=== PATIENT | female | born 1945 | race Caucasian/White ===

== ENCOUNTER 2016-05-31 07:02 | Inpatient (IN) ==
[2016-05-29 15:07] LABS: Basophils # (Auto) 0 K/mcL (0.0-0.3); Basophils % (Auto) 0.5 % (0.0-2.0); Eosinophils # (Auto) 0.2 K/mcL (0.0-0.7); Granulocytes % (Auto) 69.1 % (38.0-78.0); Lymphocytes # (Auto) 1.7 K/mcL (1.5-4.8); Lymphocytes % (Auto) 19.8 % (15.5-49.0); Mean Cell Volume 88.9 fL (80.0-100.0); Mean Corpuscular HGB Conc 32.8 g/dL (31.0-36.0); Mean Corpuscular Hemoglobin 29.2 pg (26.0-34.0); Monocytes # (Auto) 0.7 K/mcL (0.1-0.9); Monocytes % (Auto) 8.6 % (1.0-9.0); Platelet Count 248 K/mcL (140-440); RBC 4.69 M/mcL (4.00-5.20); Red Cell Distribution Width 14.6 % (11.5-14.5)
[2016-05-29 15:51] LABS: ALT/SGPT 17 U/l (0-40); Albumin 4.3 gm/dL (3.2-5.2); Albumin/Globulin Ratio 1.7 (1.0-2.3); Alkaline Phosphatase 86 U/L (39-117); Blood Urea Nitrogen 14 mg/dl (8-23)
--- NOTE | 2016-05-29 15:51 | XRay Report ---
CLINICAL INFORMATION: Preop COMPARISON: 03/24/2014 FINDINGS:The heart size, mediastinum and pulmonary vessels are unremarkable. The lungs are clear. There are no effusions. The bones and soft tissues are within normal limits. IMPRESSION: Normal chest. Interpreted and Authenticated by: Brendan Bear 05/29/16
[~2016-05-31 07:02] MED LIST: 0.9 % SODIUM CHLORIDE 250 ML IV SCH; cefOXitin 2 GM in DEXTROSE 5% IN WATER 50 ML IV SCH; metroNIDAZOLE 500 MG/100 ML BAG IV SCH
[2016-05-31] MEDS ORDERED: METOCLOPRAMIDE 10 MG/2 ML VIAL IV ONE (08:39)
[2016-05-31] MEDS ORDERED: FAMOTIDINE/PF 20 MG/2 ML VIAL IV ONE (08:40)
[2016-05-31] MEDS ORDERED: CITRIC ACID/SODIUM CITRATE 15 ML ORAL.SOL PO ONE (08:40)
[2016-05-31] MEDS ORDERED: ROCURONIUM 10 MG/ML ML IV ONE (09:45)
[2016-05-31] MEDS ORDERED: ONDANSETRON 4 MG/2 ML VIAL IV ONE (09:45)
[2016-05-31] MEDS ORDERED: PROPOFOL 200 MG/20 ML VIAL IV ONE (09:45)
[2016-05-31] MEDS ORDERED: NEOSTIGMINE 1 MG/ML VIAL IV ONE (09:45)
[2016-05-31] MEDS ORDERED: fentaNYL 100 MCG/2 ML VIAL IV ONE (09:45)
[2016-05-31] MEDS ORDERED: DEXAMETHASONE 10 MG/ML VIAL IV ONE (09:45)
[2016-05-31] MEDS ORDERED: LIDOCAINE HCL/PF 100 MG/5 ML SYRINGE IV ONE (09:45)
[2016-05-31] MEDS ORDERED: GLYCOPYRROLATE 0.2 MG/ML VIAL IV ONE (09:45)
[2016-05-31] MEDS ORDERED: HETASTARCH 6% 500 ML BAG IV ONE (09:45)
[2016-05-31] MEDS ORDERED: MIDAZOLAM 5 MG/5 ML VIAL IV ONE (09:45)
[2016-05-31] MEDS ORDERED: SUCCINYLCHOLINE 20 MG/ML ML IV ONE (09:45)
[2016-05-31] MEDS ORDERED: BACITRACIN 50,000 UNIT VIAL IR ONE (10:52)
[2016-05-31] MEDS ORDERED: cefOXitin 2 GM in DEXTROSE 5% IN WATER 50 ML IV ONE (11:25)
[2016-05-31] MEDS ORDERED: GELATIN SPONGE,ABSORBABLE 1 EACH SPONGE TOPICAL ONE (11:30)
[2016-05-31] MEDS ORDERED: LACTATED RINGERS 250 ML IV PRN (12:09)
[2016-05-31] MEDS ORDERED: IPRATROPIUM/ALBUTEROL 3 ML AMPUL.NEB NEB PRN (12:09)
[2016-05-31] MEDS ORDERED: METHOCARBAMOL 1,000 MG/10 ML VIAL IV PRN (12:09)
[2016-05-31] MEDS ORDERED: BENZOCAINE/MENTHOL 1 LOZENGE PO PRN (12:09)
[2016-05-31] MEDS ORDERED: diphenhydrAMINE 50 MG/ML VIAL IV PRN (12:09)
[2016-05-31] MEDS ORDERED: FLUMAZENIL 0.1 MG/ML ML IV PRN (12:09)
[2016-05-31] MEDS ORDERED: PROMETHAZINE 25 MG/ML VIAL IV PRN (12:09)
[2016-05-31] MEDS ORDERED: ONDANSETRON 4 MG/2 ML VIAL IV PRN (12:09)
[2016-05-31] MEDS ORDERED: NALOXONE HCL 0.4 MG/ML VIAL IV PRN (12:09)
[2016-05-31] MEDS ORDERED: HYDROmorphone 2 MG/ML SYRINGE IV PRN (12:09)
[2016-05-31] MEDS ORDERED: LACTATED RINGERS 1,000 ML IV SCH (12:15)
--- NOTE | 2016-05-31 12:29 | Brief Operative Note ---
Date of procedure: 06/11/16 Pre-op diagnosis: RECTAL PROLAPSE Post-op diagnosis: other (RECTAL PROLAPSE) Procedure: POSTERIOR PROCTOPEXY( RIPSTEIN) Grafts/Implants: Yes (SURGIMESH) Anesthesia: GETA, spinal Findings: VERY LAX REDUNDANT RECTAL MESENTERY AND REDUNDANT SIGMOID COLON Complications: none Surgeon: Solange Santos Estimated blood loss (cc): 350 Specimens Removed/Pathology: none sent Condition: stable Disposition: PACU
[2016-05-31] MEDS: fentaNYL 100 MCG/2 ML VIAL IV PRN ×8 (12:30→13:10)
[2016-05-31] MEDS: 0.9 % SODIUM CHLORIDE 10 ML SYRINGE IV SCH ×2 (14:01→23:02)
[2016-05-31] MEDS: 0.9 % SODIUM CHLORIDE 1,000 ML IV SCH (14:02)
[2016-05-31] MEDS: metroNIDAZOLE 500 MG/100 ML BAG IV SCH ×2 (14:02→17:47)
[2016-05-31] MEDS: HYDROmorphone 2 MG/ML SYRINGE IV PRN ×4 (15:11→22:58)
[2016-05-31] MEDS: ACETAMINOPHEN 1,000 MG/100 ML BOTTLE IV SCH ×2 (16:20→20:49)
[2016-05-31] MEDS: METOCLOPRAMIDE 10 MG/2 ML VIAL IV SCH (17:46)
[2016-05-31] MEDS ORDERED: cefOXitin 2 GM in DEXTROSE 5% IN WATER 50 ML IV SCH (22:00)
[2016-05-31] MEDS: cefOXitin 2 GM in DEXTROSE 5% IN WATER 50 ML IV SCH (23:02)
[2016-06-01] MEDS: metroNIDAZOLE 500 MG/100 ML BAG IV SCH ×5 (00:39→23:56)
[2016-06-01] MEDS: ACETAMINOPHEN 1,000 MG/100 ML BOTTLE IV SCH ×5 (00:39→23:57)
[2016-06-01] MEDS: METOCLOPRAMIDE 10 MG/2 ML VIAL IV SCH ×5 (00:40→23:57)
[2016-06-01] MEDS: 0.9 % SODIUM CHLORIDE 1,000 ML IV SCH ×4 (01:01→19:25)
[2016-06-01] MEDS: HYDROmorphone 2 MG/ML SYRINGE IV PRN ×9 (02:24→23:57)
[2016-06-01] MEDS: PROMETHAZINE 25 MG/ML VIAL IV PRN ×2 (03:37→13:45)
[2016-06-01] MEDS: cefOXitin 2 GM in DEXTROSE 5% IN WATER 50 ML IV SCH ×3 (05:39→21:54)
[2016-06-01 05:42] LABS: Mean Cell Volume 88.6 fL (80.0-100.0); Mean Corpuscular HGB Conc 32.7 g/dL (31.0-36.0); Mean Corpuscular Hemoglobin 28.9 pg (26.0-34.0); Platelet Count 214 K/mcL (140-440); RBC 4.68 M/mcL (4.00-5.20); Red Cell Distribution Width 14.7 % (11.5-14.5)
[2016-06-01] MEDS: 0.9 % SODIUM CHLORIDE 10 ML SYRINGE IV SCH ×3 (05:45→23:58)
[2016-06-01 06:00] LABS: Blood Urea Nitrogen 7 mg/dl (8-23)
[2016-06-01 06:30] LABS: Band Neutrophils % 7 % (0-10); Lymphocytes % 7 % (15-49); Monocytes % (Manual) 8 % (1-9); Platelet Estimate NORMAL (NORMAL); RBC Morphology NORMAL (NORMAL); Segmented Neutrophils % 78 % (38-78)
[2016-06-01] MEDS: PANTOPRAZOLE 40 MG VIAL IV SCH (07:11)
--- NOTE | 2016-06-01 16:19 | General Surgery Progress Note ---
Subjective Patient reports: still having pain, no flatus, no bowel movement, nausea, vomiting, afebrile Narrative: Note initiated : 06/01/16 at 4:13 pm Service Date, if different from initiated Date: [] Patient: Amparo Briceno 70 y/o F admitted on 05/31/16 for Ripstein Posterior Proctopexy. Chief Complaint. patient is stable except for pain. she has some nausea. she has not had vomiting. she has better control with the dilaudid. Objective Temp Pulse Resp BP Pulse Ox 99.1 F 84 24 188/92 96 06/01/16 11:59 06/01/16 14:24 06/01/16 14:24 06/01/16 14:24 06/01/16 14:24 - Additional Data Intake & Output - Last 24 hours: Intake & Output 05/30/16 05/31/16 06/01/16 06/02/16 05:59 05:59 05:59 05:59 Intake Total 4200 / 4200 250 / 250 Output Total 3120 / 3120 1480 / 1480 Balance 1080 / 1080 -1230 / -1230 Weight 125 lb 128 lb 8 oz 128 lb 8 oz - General physical appearance moderate distress, moderate pain - Eyes PERRL, normal ocular movement - ENT no congestion - Neck no venous distension - Respiratory clear to auscultation - Cardiovascular Cardiovascular exam: Present: normal rate and rhythm, RRR, +S2. Absent: JVD - Abdomen tender, bowel sounds, distended (hypoactive bowel sounds; no distention;) - Integumentary no rash - Neurologic normal coordination, normal sensation - Musculoskeletal normal gait, normal posture - Psychiatric oriented to time, oriented to person, oriented to place, speech is normal, memory intact - Labs 06/01/16 04:30 06/01/16 04:30 Diabetes panel 06/01/16 Range/Units 04:30 Sodium 133 (133-145) mmol/L Potassium 3.7 (3.3-5.1) mmol/L Chloride 98 (96-108) mmol/L Carbon Dioxide 24 (22-30) mmol/L BUN 7 L (8-23) mg/dl Creatinine 0.5 L (0.6-1.1) mg/dl Glucose 145 H (70-105) mg/dL Calcium 7.7 L (8.6-10.4) mg/dl Calcium panel 06/01/16 Range/Units 04:30 Calcium 7.7 L (8.6-10.4) mg/dl Pituitary panel 06/01/16 Range/Units 04:30 Sodium 133 (133-145) mmol/L Potassium 3.7 (3.3-5.1) mmol/L Chloride 98 (96-108) mmol/L Carbon Dioxide 24 (22-30) mmol/L BUN 7 L (8-23) mg/dl Creatinine 0.5 L (0.6-1.1) mg/dl Glucose 145 H (70-105) mg/dL Calcium 7.7 L (8.6-10.4) mg/dl Adrenal panel 06/01/16 Range/Units 04:30 Sodium 133 (133-145) mmol/L Potassium 3.7 (3.3-5.1) mmol/L Chloride 98 (96-108) mmol/L Carbon Dioxide 24 (22-30) mmol/L BUN 7 L (8-23) mg/dl Creatinine 0.5 L (0.6-1.1) mg/dl Glucose 145 H (70-105) mg/dL Calcium 7.7 L (8.6-10.4) mg/dl Medical - PN: A/P - Time Spent With Patient Total time spent is greater than 50% in coordination of care (as documented) at patient's floor/unit and/or counseling patient: (1) 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
[2016-06-02] MEDS: HYDROmorphone 2 MG/ML SYRINGE IV PRN ×10 (02:52→23:49)
[2016-06-02] MEDS: 0.9 % SODIUM CHLORIDE 1,000 ML IV SCH ×2 (03:30→16:27)
[2016-06-02] MEDS: cefOXitin 2 GM in DEXTROSE 5% IN WATER 50 ML IV SCH ×3 (05:21→21:53)
[2016-06-02] MEDS: 0.9 % SODIUM CHLORIDE 10 ML SYRINGE IV SCH ×3 (05:21→23:28)
[2016-06-02] MEDS: METOCLOPRAMIDE 10 MG/2 ML VIAL IV SCH ×4 (05:21→23:26)
[2016-06-02] MEDS: metroNIDAZOLE 500 MG/100 ML BAG IV SCH ×4 (05:21→23:26)
[2016-06-02] MEDS: ACETAMINOPHEN 1,000 MG/100 ML BOTTLE IV SCH ×3 (06:48→17:33)
[2016-06-02] MEDS: LEVOTHYROXINE 150 MCG TABLET PO SCH (06:48)
[2016-06-02] MEDS: PANTOPRAZOLE 40 MG VIAL IV SCH (06:48)
[2016-06-02] MEDS: LIOTHYRONINE 5 MCG TABLET PO SCH (09:25)
[2016-06-02] MEDS: SERTRALINE 50 MG TABLET PO SCH (09:26)
[2016-06-02] MEDS: NORETHINDRONE ACET PO SCH (09:44)
[2016-06-02] MEDS: ESTRADIOL PO SCH (09:44)
[2016-06-02 11:13] LABS: Basophils # (Auto) 0 K/mcL (0.0-0.3); Basophils % (Auto) 0.2 % (0.0-2.0); Eosinophils # (Auto) 0 K/mcL (0.0-0.7); Eosinophils % (Auto) 0 % (0.0-7.0); Granulocytes % (Auto) 80.1 % (38.0-78.0); Lymphocytes # (Auto) 1.7 K/mcL (1.5-4.8); Lymphocytes % (Auto) 11.9 % (15.5-49.0); Mean Cell Volume 89.3 fL (80.0-100.0); Mean Corpuscular HGB Conc 32.4 g/dL (31.0-36.0); Mean Corpuscular Hemoglobin 28.9 pg (26.0-34.0); Monocytes # (Auto) 1.1 K/mcL (0.1-0.9); Monocytes % (Auto) 7.8 % (1.0-9.0); Platelet Count 254 K/mcL (140-440); RBC 4.71 M/mcL (4.00-5.20); Red Cell Distribution Width 14.1 % (11.5-14.5)
[2016-06-02 11:22] LABS: Blood Urea Nitrogen 8 mg/dl (8-23)
[2016-06-02] MEDS: PROMETHAZINE 25 MG/ML VIAL IV PRN (11:51)
--- NOTE | 2016-06-02 14:23 | General Surgery Progress Note ---
Subjective Patient reports: still having pain, no flatus, no bowel movement, afebrile Narrative: Note initiated : 06/02/16 at 2:21 pm Service Date, if different from initiated Date: [] Patient: Amparo Briceno 70 y/o F admitted on 05/31/16 for Ripstein Posterior Proctopexy. Chief Complaint: [patient is doing better. She had some nausea last evening but no vomiting. She has not had flatus as yet. Her pain is better but not completely controlle. She still has bloody drainagefrom her pelvis. She denies chest pain or shortness of breath..] Objective Temp Pulse Resp BP Pulse Ox 98.6 F 99 H 22 158/82 97 06/02/16 12:00 06/02/16 12:00 06/02/16 12:00 06/02/16 12:00 06/02/16 12:00 - Additional Data Intake & Output - Last 24 hours: Intake & Output 05/31/16 06/01/16 06/02/16 06/03/16 05:59 05:59 05:59 05:59 Intake Total 4200 / 4200 3050 / 3050 200 / 200 Output Total 3120 / 3120 4040 / 4040 30 / 30 Balance 1080 / 1080 -990 / -990 170 / 170 Weight 128 lb 8 oz 121 lb 8 oz - General physical appearance moderate distress, moderate pain - Eyes PERRL - ENT no congestion - Neck no venous distension - Respiratory clear to auscultation - Cardiovascular Cardiovascular exam: Present: normal rate and rhythm, RRR, +S1, +S2, tachycardia - Abdomen tender, bowel sounds, distended (she has good active bowel sounds but no distention. She has diffuse tenderness of the operative site. JAIME drain is still quite sanguinous.) - Integumentary no rash, no growths, no abnormal pigmentation - Neurologic normal coordination, normal sensation - Psychiatric oriented to time - Labs 06/02/16 10:25 06/02/16 10:25 Diabetes panel 06/02/16 Range/Units 10:25 Sodium 131 L (133-145) mmol/L Potassium 3.3 (3.3-5.1) mmol/L Chloride 94 L (96-108) mmol/L Carbon Dioxide 23 (22-30) mmol/L BUN 8 (8-23) mg/dl Creatinine 0.5 L (0.6-1.1) mg/dl Glucose 122 H (70-105) mg/dL Calcium 8.0 L (8.6-10.4) mg/dl Calcium panel 06/02/16 Range/Units 10:25 Calcium 8.0 L (8.6-10.4) mg/dl Pituitary panel 06/02/16 Range/Units 10:25 Sodium 131 L (133-145) mmol/L Potassium 3.3 (3.3-5.1) mmol/L Chloride 94 L (96-108) mmol/L Carbon Dioxide 23 (22-30) mmol/L BUN 8 (8-23) mg/dl Creatinine 0.5 L (0.6-1.1) mg/dl Glucose 122 H (70-105) mg/dL Calcium 8.0 L (8.6-10.4) mg/dl Adrenal panel 06/02/16 Range/Units 10:25 Sodium 131 L (133-145) mmol/L Potassium 3.3 (3.3-5.1) mmol/L Chloride 94 L (96-108) mmol/L Carbon Dioxide 23 (22-30) mmol/L BUN 8 (8-23) mg/dl Creatinine 0.5 L (0.6-1.1) mg/dl Glucose 122 H (70-105) mg/dL Calcium 8.0 L (8.6-10.4) mg/dl Medical - PN: A/P - Time Spent With Patient Total time spent is greater than 50% in coordination of care (as documented) at patient's floor/unit and/or counseling patient: (1) 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
[2016-06-02] MEDS: METHYLNALTREXONE BROMIDE 12 MG/0.6 ML SYRINGE SQ SCH (15:15)
[2016-06-02] MEDS: POTASSIUM CHLORIDE 20 MEQ TABLET PO SCH (17:48)
[2016-06-02] MEDS: morphine 30 MG TAB.SR.12H PO SCH (20:32)
[2016-06-03] MEDS: ACETAMINOPHEN 1,000 MG/100 ML BOTTLE IV SCH ×5 (00:58→23:20)
[2016-06-03] MEDS: 0.9 % SODIUM CHLORIDE 1,000 ML IV SCH ×3 (02:38→17:35)
[2016-06-03] MEDS: HYDROmorphone 2 MG/ML SYRINGE IV PRN ×9 (03:57→23:22)
[2016-06-03] MEDS: metroNIDAZOLE 500 MG/100 ML BAG IV SCH ×4 (05:15→23:20)
[2016-06-03] MEDS: METOCLOPRAMIDE 10 MG/2 ML VIAL IV SCH ×4 (05:16→23:22)
[2016-06-03] MEDS: 0.9 % SODIUM CHLORIDE 10 ML SYRINGE IV SCH ×3 (05:16→23:33)
[2016-06-03] MEDS: cefOXitin 2 GM in DEXTROSE 5% IN WATER 50 ML IV SCH ×3 (05:16→21:35)
[2016-06-03] MEDS: PANTOPRAZOLE 40 MG VIAL IV SCH (08:32)
[2016-06-03] MEDS: LIOTHYRONINE 5 MCG TABLET PO SCH (08:32)
[2016-06-03] MEDS: morphine 30 MG TAB.SR.12H PO SCH ×2 (08:32→21:35)
[2016-06-03] MEDS: LEVOTHYROXINE 150 MCG TABLET PO SCH (08:33)
[2016-06-03] MEDS: POTASSIUM CHLORIDE 20 MEQ TABLET PO SCH ×2 (08:33→18:06)
[2016-06-03] MEDS: SERTRALINE 50 MG TABLET PO SCH (08:33)
[2016-06-03] MEDS: NORETHINDRONE ACET PO SCH (10:47)
[2016-06-03] MEDS: ESTRADIOL PO SCH (10:47)
[2016-06-03 11:16] LABS: Basophils # (Auto) 0 K/mcL (0.0-0.3); Basophils % (Auto) 0.4 % (0.0-2.0); Eosinophils # (Auto) 0.1 K/mcL (0.0-0.7); Granulocytes % (Auto) 79.4 % (38.0-78.0); Lymphocytes # (Auto) 1.2 K/mcL (1.5-4.8); Lymphocytes % (Auto) 12.1 % (15.5-49.0); Mean Cell Volume 89.5 fL (80.0-100.0); Mean Corpuscular HGB Conc 32.8 g/dL (31.0-36.0); Mean Corpuscular Hemoglobin 29.4 pg (26.0-34.0); Monocytes # (Auto) 0.7 K/mcL (0.1-0.9); Monocytes % (Auto) 7.1 % (1.0-9.0); Platelet Count 240 K/mcL (140-440); RBC 3.78 M/mcL (4.00-5.20); Red Cell Distribution Width 14.1 % (11.5-14.5)
--- NOTE | 2016-06-03 17:26 | General Surgery Progress Note ---
Subjective Patient reports: feels better, still having pain, tolerating liquids well, flatus, no bowel movement, afebrile Narrative: Note initiated : 06/03/16 at 5:23 pm Service Date, if different from initiated Date: [] Patient: Amparo Briceno 70 y/o F admitted on 05/31/16 for Ripstein Posterior Proctopexy. Chief Complaint: [patient feels better but she is still having significant pain. After institution of Relistor she is passing more flatus and is having less abdominal cramps. She denies nausea. Her main difficulty seems to be related to her low dose of oral morphine. This will be increased to 180 mg twice daily and tomorrow I will spread her interval for Dilaudid to every 4 hours when necessary] Objective Temp Pulse Resp BP Pulse Ox 97.8 F 95 H 16 130/67 94 06/03/16 12:00 06/03/16 12:00 06/03/16 12:00 06/03/16 12:00 06/03/16 12:00 - Additional Data Intake & Output - Last 24 hours: Intake & Output 06/01/16 06/02/16 06/03/16 06/04/16 05:59 05:59 05:59 05:59 Intake Total 4200 / 4200 3050 / 3050 3175 / 3175 800 / 800 Output Total 3120 / 3120 4040 / 4040 3395 / 3395 680 / 680 Balance 1080 / 1080 -990 / -990 -220 / -220 120 / 120 Weight 128 lb 8 oz 121 lb 8 oz 122 lb - General physical appearance moderate distress, moderate pain - Eyes PERRL - ENT no congestion - Neck no venous distension - Respiratory clear to auscultation - Cardiovascular Cardiovascular exam: Present: normal rate and rhythm, RRR, +S1, +S2. Absent: JVD - Abdomen tender, bowel sounds, distended (abdomen is less distended; she has hyperactive bowel sounds JAIME drainage continued to decrease and is much thinner.) - Integumentary no rash - Neurologic normal coordination, normal sensation - Musculoskeletal normal gait, normal posture - Psychiatric oriented to time, oriented to person, oriented to place, speech is normal, memory intact - Labs 06/03/16 10:35 06/02/16 10:25 Medical - PN: A/P - Time Spent With Patient Total time spent is greater than 50% in coordination of care (as documented) at patient's floor/unit and/or counseling patient: (1) 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
[2016-06-03] MEDS: METHYLNALTREXONE BROMIDE 12 MG/0.6 ML SYRINGE SQ SCH (18:05)
[2016-06-04] MEDS: 0.9 % SODIUM CHLORIDE 1,000 ML IV SCH ×2 (04:55→10:15)
[2016-06-04] MEDS: HYDROmorphone 2 MG/ML SYRINGE IV PRN ×2 (04:56→09:41)
[2016-06-04] MEDS: cefOXitin 2 GM in DEXTROSE 5% IN WATER 50 ML IV SCH ×2 (06:05→15:34)
[2016-06-04] MEDS: METOCLOPRAMIDE 10 MG/2 ML VIAL IV SCH ×2 (06:07→12:03)
[2016-06-04] MEDS: metroNIDAZOLE 500 MG/100 ML BAG IV SCH ×2 (06:08→12:04)
[2016-06-04] MEDS: ACETAMINOPHEN 1,000 MG/100 ML BOTTLE IV SCH ×2 (06:10→12:03)
[2016-06-04] MEDS: 0.9 % SODIUM CHLORIDE 10 ML SYRINGE IV SCH ×2 (06:11→15:34)
[2016-06-04 06:57] LABS: Basophils # (Auto) 0 K/mcL (0.0-0.3); Basophils % (Auto) 0.3 % (0.0-2.0); Eosinophils # (Auto) 0.2 K/mcL (0.0-0.7); Eosinophils % (Auto) 3.4 % (0.0-7.0); Granulocytes % (Auto) 65.7 % (38.0-78.0); Lymphocytes # (Auto) 1.4 K/mcL (1.5-4.8); Lymphocytes % (Auto) 21.4 % (15.5-49.0); Mean Cell Volume 89.1 fL (80.0-100.0); Mean Corpuscular HGB Conc 32.8 g/dL (31.0-36.0); Mean Corpuscular Hemoglobin 29.2 pg (26.0-34.0); Monocytes # (Auto) 0.6 K/mcL (0.1-0.9); Monocytes % (Auto) 9.2 % (1.0-9.0); Platelet Count 213 K/mcL (140-440); RBC 3.32 M/mcL (4.00-5.20); Red Cell Distribution Width 14.1 % (11.5-14.5)
[2016-06-04] MEDS: LEVOTHYROXINE 150 MCG TABLET PO SCH (07:08)
[2016-06-04] MEDS: LIOTHYRONINE 5 MCG TABLET PO SCH (07:08)
[2016-06-04] MEDS: POTASSIUM CHLORIDE 20 MEQ TABLET PO SCH (07:08)
[2016-06-04] MEDS: PANTOPRAZOLE 40 MG VIAL IV SCH (07:08)
[2016-06-04] MEDS: SERTRALINE 50 MG TABLET PO SCH (08:58)
[2016-06-04] MEDS: morphine 30 MG TAB.SR.12H PO SCH (08:59)
[2016-06-04] MEDS: ESTRADIOL PO SCH (09:45)
[2016-06-04] MEDS: NORETHINDRONE ACET PO SCH (09:45)
--- NOTE | 2016-06-04 13:25 | Discharge Summary ---
Providers - Providers Patient information: Note initiated : 06/04/16 at 1:17 pm Service Date, if different from initiated Date: [] Patient: Amparo Briceno 70 y/o F admitted on 05/31/16 for Ripstein Posterior Proctopexy. Chief Complaint: [] Date of admission: 05/31/16 Discharge date: 06/04/16 Attending physician: Solange Santos Hospitalization Hospital course: 70-YEAR-OLD FEMALE STATUS POST RIB STAIN PROCTOPEXY FOR PROLAPSING RECTOSIGMOID. sHE IS PROGRESSING OVER THE PAST 2DAYS AND FINALLY HAS HAD MULTIPLE BOWEL MOVEMENTS. SHE HAS NOT HAD ANY PROLAPSING TISSUE AND HER PERIANAL AREA LOOKS GOOD WITHOUT ANY EVIDENCE OF PROLAPSE. hER MAJOR PROBLEM HAS BEEN PAIN CONTROLBECAUSE OF HER PROLONGED USE OF LARGE DOSES MORPHINE SULFATE. sHE IS BACK ON HER BASELINEms cONTIN 200 MG TWICE DAILY AND HER PAIN IS WELL CONTROLLED. hER alba DRAIN IS SEROSANGUINEOUS BUT ONLY 80 CC PER DAY. sHE IS STABLE FOR DISCHARGE AND WILL BE FOLLOWED UP IN THE OFFICE IN ONE WEEK. 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 Absent : JVD - Respiratory normal expansion, normal respiratory effort, clear to auscultation - Abdomen Abdomen: Present: soft, tender, bowel sounds, distended - Integumentary Present: no rash, no growths, no abnormal pigmentation - Neurologic Present: normal coordination, normal sensation - Musculoskeletal Present: normal gait, normal posture - Psychiatric Present: oriented to time, oriented to person, oriented to place, speech is normal, memory intact Discharge Plan - Patient/Caregiver Discharge Instructions Activity: increase activity as tolerated Diet: Regular Diet Additional Instructions: [id number] MG 2 TABS 4 TIMES DAILY cONTINUE TO USE HER BASELINE MEDICATIONS fOLLOW-UP IN THE OFFICE IN ONE WEEK mEASURE DRAINAGE IN alba DAILY - Follow up Plan Disposition: Home, Self-Care Prognosis: Good Rehab Potential: Good I certify that the patient requires SNF services.: No Overall status at discharge: patient is progressing back to baseline Pending Studies Resuscitation Status Full Code Diet Full Liquid Diet Start FriJun 03 Breakfast Hydromorphone HCl (Dilaudid) 1.5 mg IV Q2HP PRN PRN Reason: Pain Last Admin: 06/04/16 09:41 Dose: 1.5 mg Admin: 06/04/16 04:56 Dose: 1.5 mg Admin: 06/03/16 23:22 Dose: 1.5 mg Admin: 06/03/16 20:34 Dose: 1.5 mg Admin: 06/03/16 18:06 Dose: 1.5 mg Admin: 06/03/16 16:11 Dose: 1.5 mg Admin: 06/03/16 14:15 Dose: 1.5 mg Admin: 06/03/16 12:04 Dose: 1.5 mg Admin: 06/03/16 09:57 Dose: 1.5 mg Admin: 06/03/16 07:12 Dose: 1.5 mg Admin: 06/03/16 03:57 Dose: 1.5 mg Admin: 06/02/16 23:49 Dose: 1.5 mg Admin: 06/02/16 21:54 Dose: 1.5 mg Admin: 06/02/16 19:31 Dose: 1.5 mg Admin: 06/02/16 17:33 Dose: 1.5 mg Admin: 06/02/16 15:37 Dose: 1.5 mg Admin: 06/02/16 13:30 Dose: 1.5 mg Admin: 06/02/16 11:46 Dose: 1.5 mg Admin: 06/02/16 09:26 Dose: 1.5 mg Admin: 06/02/16 07:01 Dose: 1.5 mg Admin: 06/02/16 02:52 Dose: 1.5 mg Admin: 06/01/16 23:57 Dose: 1.5 mg Admin: 06/01/16 21:54 Dose: 1.5 mg Admin: 06/01/16 18:13 Dose: 1.5 mg Cefoxitin Sodium 2 gm/ (Dextrose) 50 mls @ 100 mls/hr IV Q8 ESTEFANIA Last Infusion: 06/04/16 07:31 Dose: 0 mls/hr Admin: 06/04/16 06:05 Dose: 100 mls/hr Infusion: 06/03/16 22:05 Dose: 100 mls/hr Admin: 06/03/16 21:35 Dose: 100 mls/hr Infusion: 06/03/16 15:00 Dose: 0 mls/hr Admin: 06/03/16 14:14 Dose: 100 mls/hr Infusion: 06/03/16 05:50 Dose: 0 mls/hr Admin: 06/03/16 05:16 Dose: 100 mls/hr Infusion: 06/02/16 22:23 Dose: 100 mls/hr Admin: 06/02/16 21:53 Dose: 100 mls/hr Infusion: 06/02/16 14:27 Dose: 100 mls/hr Admin: 06/02/16 13:57 Dose: 100 mls/hr Infusion: 06/02/16 05:51 Dose: 100 mls/hr Admin: 06/02/16 05:21 Dose: 100 mls/hr Infusion: 06/01/16 22:24 Dose: 100 mls/hr Admin: 06/01/16 21:54 Dose: 100 mls/hr Infusion: 06/01/16 14:10 Dose: 100 mls/hr Admin: 06/01/16 13:40 Dose: 100 mls/hr Infusion: 06/01/16 06:09 Dose: 100 mls/hr Admin: 06/01/16 05:39 Dose: 100 mls/hr Infusion: 05/31/16 23:32 Dose: 100 mls/hr Admin: 05/31/16 23:02 Dose: 100 mls/hr Sodium Chloride (Sodium Chloride 0.9%) 1,000 mls @ 100 mls/hr IV .Q10H ESTEFANIA Last Admin: 06/04/16 10:15 Dose: Not Given Admin: 06/04/16 04:55 Dose: 100 mls/hr Infusion: 06/04/16 03:35 Dose: 100 mls/hr Admin: 06/03/16 17:35 Dose: 100 mls/hr Infusion: 06/03/16 17:35 Dose: 0 mls/hr Admin: 06/03/16 05:15 Dose: 100 mls/hr Admin: 06/03/16 02:38 Dose: Infusion: 06/03/16 02:27 Dose: 100 mls/hr Admin: 06/02/16 16:27 Dose: 100 mls/hr Infusion: 06/02/16 13:30 Dose: 100 mls/hr Admin: 06/02/16 03:30 Dose: 100 mls/hr Infusion: 06/02/16 03:21 Dose: 100 mls/hr Admin: 06/01/16 19:25 Dose: Admin: 06/01/16 17:21 Dose: 100 mls/hr Infusion: 06/01/16 14:04 Dose: 100 mls/hr Admin: 06/01/16 04:04 Dose: 100 mls/hr Admin: 06/01/16 01:01 Dose: Infusion: 06/01/16 00:02 Dose: 100 mls/hr Admin: 05/31/16 14:02 Dose: 100 mls/hr Metronidazole (Flagyl) 500 mg in 100 mls @ 100 mls/hr IV Q6 ESTEFANIA Last Admin: 06/04/16 12:04 Dose: 100 mls/hr Infusion: 06/04/16 07:27 Dose: 0 mls/hr Admin: 06/04/16 06:08 Dose: 100 mls/hr Infusion: 06/04/16 00:20 Dose: 100 mls/hr Admin: 06/03/16 23:20 Dose: 100 mls/hr Infusion: 06/03/16 19:06 Dose: 100 mls/hr Admin: 06/03/16 18:06 Dose: 100 mls/hr Infusion: 06/03/16 13:20 Dose: 0 mls/hr Admin: 06/03/16 12:19 Dose: 100 mls/hr Infusion: 06/03/16 06:15 Dose: 0 mls/hr Admin: 06/03/16 05:15 Dose: 100 mls/hr Infusion: 06/03/16 00:26 Dose: 100 mls/hr Admin: 06/02/16 23:26 Dose: 100 mls/hr Infusion: 06/02/16 18:33 Dose: 100 mls/hr Admin: 06/02/16 17:33 Dose: 100 mls/hr Infusion: 06/02/16 12:45 Dose: 100 mls/hr Admin: 06/02/16 11:45 Dose: 100 mls/hr Infusion: 06/02/16 06:21 Dose: 100 mls/hr Admin: 06/02/16 05:21 Dose: 100 mls/hr Infusion: 06/02/16 00:56 Dose: 100 mls/hr Admin: 06/01/16 23:56 Dose: 100 mls/hr Infusion: 06/01/16 18:44 Dose: 100 mls/hr Admin: 06/01/16 17:44 Dose: 100 mls/hr Infusion: 06/01/16 12:47 Dose: 100 mls/hr Admin: 06/01/16 11:47 Dose: 100 mls/hr Infusion: 06/01/16 06:39 Dose: 100 mls/hr Admin: 06/01/16 05:39 Dose: 100 mls/hr Infusion: 06/01/16 01:39 Dose: 100 mls/hr Admin: 06/01/16 00:39 Dose: 100 mls/hr Infusion: 05/31/16 18:47 Dose: 100 mls/hr Admin: 05/31/16 17:47 Dose: 100 mls/hr Infusion: 05/31/16 15:02 Dose: 100 mls/hr Admin: 05/31/16 14:02 Dose: 100 mls/hr Acetaminophen (Ofirmev) 1,000 mg in 100 mls @ 200 mls/hr IV Q6 ESTEFANIA Last Admin: 06/04/16 12:03 Dose: 200 mls/hr Infusion: 06/04/16 06:40 Dose: 200 mls/hr Admin: 06/04/16 06:10 Dose: 200 mls/hr Infusion: 06/03/16 23:50 Dose: 200 mls/hr Admin: 06/03/16 23:20 Dose: 200 mls/hr Infusion: 06/03/16 18:35 Dose: 200 mls/hr Admin: 06/03/16 18:05 Dose: 200 mls/hr Infusion: 06/03/16 12:50 Dose: 0 mls/hr Admin: 06/03/16 12:19 Dose: 200 mls/hr Infusion: 06/03/16 06:40 Dose: 0 mls/hr Admin: 06/03/16 06:09 Dose: 200 mls/hr Infusion: 06/03/16 01:28 Dose: 200 mls/hr Admin: 06/03/16 00:58 Dose: 200 mls/hr Infusion: 06/02/16 18:03 Dose: 200 mls/hr Admin: 06/02/16 17:33 Dose: 200 mls/hr Infusion: 06/02/16 12:15 Dose: 200 mls/hr Admin: 06/02/16 11:45 Dose: 200 mls/hr Infusion: 06/02/16 07:18 Dose: 200 mls/hr Admin: 06/02/16 06:48 Dose: 200 mls/hr Infusion: 06/02/16 00:27 Dose: 200 mls/hr Admin: 06/01/16 23:57 Dose: 200 mls/hr Infusion: 06/01/16 18:13 Dose: 200 mls/hr Admin: 06/01/16 17:43 Dose: 200 mls/hr Infusion: 06/01/16 12:17 Dose: 200 mls/hr Admin: 06/01/16 11:47 Dose: 200 mls/hr Infusion: 06/01/16 06:09 Dose: 200 mls/hr Admin: 06/01/16 05:39 Dose: 200 mls/hr Infusion: 06/01/16 01:09 Dose: 200 mls/hr Admin: 06/01/16 00:39 Dose: 200 mls/hr Infusion: 05/31/16 21:19 Dose: 200 mls/hr Admin: 05/31/16 20:49 Dose: 200 mls/hr Infusion: 05/31/16 16:50 Dose: 200 mls/hr Admin: 05/31/16 16:20 Dose: 200 mls/hr Levothyroxine Sodium (Synthroid) 150 mcg PO QAMAC COUNTS INCLUDE 234 BEDS AT THE [facility] Last Admin: 06/04/16 07:08 Dose: 150 mcg Admin: 06/03/16 08:33 Dose: 150 mcg Admin: 06/02/16 06:48 Dose: 150 mcg Liothyronine Sodium (Cytomel) 50 mcg PO QAMAC COUNTS INCLUDE 234 BEDS AT THE [facility] Last Admin: 06/04/16 07:08 Dose: 50 mcg Admin: 06/03/16 08:32 Dose: 50 mcg Admin: 06/02/16 09:25 Dose: 50 mcg Methylnaltrexone Gardner (Relistor) 12 mg SQ DAILY@1500 ESTEFANIA Stop: 06/04/16 15:01 Last Admin: 06/03/16 18:05 Dose: 12 mg Admin: 06/02/16 15:15 Dose: 12 mg Metoclopramide HCl (Reglan) 10 mg IV Q6 COUNTS INCLUDE 234 BEDS AT [facility] Last Admin: 06/04/16 12:03 Dose: 10 mg Admin: 06/04/16 06:07 Dose: 10 mg Admin: 06/03/16 23:22 Dose: 10 mg Admin: 06/03/16 18:05 Dose: 10 mg Admin: 06/03/16 12:21 Dose: 10 mg Admin: 06/03/16 05:16 Dose: 10 mg Admin: 06/02/16 23:26 Dose: 10 mg Admin: 06/02/16 17:34 Dose: 10 mg Admin: 06/02/16 11:45 Dose: 10 mg Admin: 06/02/16 05:21 Dose: 10 mg Admin: 06/01/16 23:57 Dose: 10 mg Admin: 06/01/16 17:44 Dose: 10 mg Admin: 06/01/16 11:46 Dose: 10 mg Admin: 06/01/16 05:39 Dose: 10 mg Admin: 06/01/16 00:40 Dose: 10 mg Admin: 05/31/16 17:46 Dose: 10 mg Morphine Sulfate (Morphine) 6 mg IV Q2HP PRN PRN Reason: Pain Last Admin: 06/02/16 16:39 Dose: 6 mg Admin: 06/02/16 03:49 Dose: 6 mg Admin: 06/01/16 19:24 Dose: 6 mg Admin: 06/01/16 13:10 Dose: 6 mg Admin: 06/01/16 10:54 Dose: 6 mg Admin: 06/01/16 08:11 Dose: 6 mg Admin: 06/01/16 03:30 Dose: 6 mg Admin: 06/01/16 00:58 Dose: 6 mg Admin: 05/31/16 20:50 Dose: 6 mg Morphine Sulfate (Ms Contin) 180 mg PO BID COUNTS INCLUDE 234 BEDS AT THE [facility] Last Admin: 06/04/16 08:59 Dose: 180 mg Admin: 06/03/16 21:35 Dose: 180 mg Pantoprazole Sodium (Protonix) 40 mg IV QAMAC COUNTS INCLUDE 234 BEDS AT [facility] Last Admin: 06/04/16 07:08 Dose: 40 mg Admin: 06/03/16 08:32 Dose: 40 mg Admin: 06/02/16 06:48 Dose: 40 mg Admin: 06/01/16 07:11 Dose: 40 mg Estradiol/Norethindrone Acet [ Mimvey Lo 0.5-0.1 Mg ] Tab 1 dose PO QDAY COUNTS INCLUDE 234 BEDS AT [facility] Last Admin: 06/04/16 09:45 Dose: Not Given Admin: 06/03/16 10:47 Dose: Not Given Admin: 06/02/16 09:44 Dose: Not Given Potassium Chloride (Kdur) 20 meq PO BIDCC COUNTS INCLUDE 234 BEDS AT THE [facility] Last Admin: 06/04/16 07:08 Dose: 20 meq Admin: 06/03/16 18:06 Dose: 20 meq Admin: 06/03/16 08:33 Dose: 20 meq Admin: 06/02/16 17:48 Dose: 20 meq Promethazine HCl (Phenergan) 12.5 mg IV Q6HP PRN PRN Reason: Nausea And Vomiting Last Admin: 06/02/16 11:51 Dose: 12.5 mg Admin: 06/01/16 13:45 Dose: 12.5 mg Admin: 06/01/16 03:37 Dose: 12.5 mg Sertraline HCl (Zoloft) 100 mg PO DAILY COUNTS INCLUDE 234 BEDS AT [facility] Last Admin: 06/04/16 08:58 Dose: 100 mg Admin: 06/03/16 08:33 Dose: 100 mg Admin: 06/02/16 09:26 Dose: 100 mg Sodium Chloride (Saline Flush) 10 ml IV Q8 COUNTS INCLUDE 234 BEDS AT THE [facility] Last Admin: 06/04/16 06:11 Dose: 10 ml Admin: 06/03/16 23:33 Dose: 10 ml Admin: 06/03/16 14:16 Dose: Not Given Admin: 06/03/16 05:16 Dose: 10 ml Admin: 06/02/16 23:28 Dose: 10 ml Admin: 06/02/16 14:00 Dose: Not Given Admin: 06/02/16 05:21 Dose: 10 ml Admin: 06/01/16 23:58 Dose: 10 ml Admin: 06/01/16 14:21 Dose: 10 ml Admin: 06/01/16 05:45 Dose: 10 ml Admin: 05/31/16 23:02 Dose: 10 ml Admin: 05/31/16 14:01 Dose: Not Given Shift Summary 06/04/16 03:59 Shift Summary by [place],Joylene pt up w/SBA, having liquid loose stools in attends and in BR, passing flatus, FC drg pale yellow urine, no orders to d/c FC as of yet, MIV infusing well into RFA and other IV to RFA flushed and patent, pt stated takes 200mg mscontin at home and dose was changed last night so pt received 180mg at hs med pass, she only received dilaudid 1.5mg IV twice thus far, pt was receiving dilaudid q2h but she stated dilaudid wasn't controlling her pain at all, she has chronic back and gout pain, she has tolerated a full liquid diet well, repositions self in bed w/minimal difficulty, pt wishes to be more active and possibly d/c home very soon, no orders for ambulation have been entered, ALBA to RLQ with debbie. drg noted, midline incision with drg and bruising noted but tegaderm is intact Initialized on 06/04/16 03:59 - END OF NOTE
--- NOTE | 2016-06-11 08:57 | Operative Note ---
DATE OF OPERATION: 05/31/2016 PREOPERATIVE DIAGNOSIS: Rectal prolapse. POSTOPERATIVE DIAGNOSIS: Rectal prolapse. PROCEDURE: Transabdominal posterior proctopexy. SURGEON: Solange Santos MD. ANESTHESIA: Spinal and general endotracheal anesthesia. FINDINGS: Very lax redundant rectal mesentery and redundant sigmoid colon. DESCRIPTION OF PROCEDURE: Under general anesthesia, the patient's abdomen was prepped and draped in the sterile field. A lower midline incision was made. Upon entering the abdomen there was no abnormality noted except for a very redundant sigmoid colon and a very lax redundant rectal posterior mesentery. There was significant laxity of the distal rectal sigmoid. Bilateral incision was made in the mesentery starting above the sacral promontory and extending deep into the collar of the sacrum down to the tip of the coccyx. This was done bilaterally so as to totally free up the rectum posteriorly. A sleeve of Surgimesh gauze was chosen. It was sutured to the presacral fascia starting at the sacral promontory and extending about 4 cm distally. This was sutured using interrupted 0 Prolene in three rows. This gave perfect fixation of the mesh to the sacrum. The rectal sigmoid was then placed on maximum stretch, and the mesh was folded anteriorly round the mesh leaving the anterior one-fourth of the bowel wall free of mesh. The edge of the Surgimesh was then sutured to the wall of the bowel using multiple interrupted 2-0 Prolene along the superior margin and inferior margin of the mesh, and suturing the mesentery to the residual mesh posteriorly using 2-0 Prolene. While suturing the mesh posteriorly, a small vein off the iliac was punctured. There was bleeding which was controlled with three sutures of interrupted 4-0 Prolene. Irrigation was carried out. The bowel was inspected and appeared to be unremarkable. JAIME drain was placed in the hollow of the sacrum, and Jocelin hemostatic powder was placed to assist with hemostasis. The drain was brought out through a lateral stab incision. Sponge, needle, instrument and blade counts were verified as correct. The fascia and peritoneum were closed with running #1 Prolene. Subcutaneous tissue was closed with 2-0 Monocryl. Skin was closed with ruba. The drain was secured with 3-0 nylon. The patient tolerated the procedure well. Dressing was placed. She was awakened, transferred to a bed and taken to the postanesthetic care unit in satisfactory condition. LCS:neo Babcock: 06/10/2016 17:02:15 Job ID: [id number] Doc ID: [id number] Solange Santos M.D.
== END 2016-06-04 16:20 | disposition home or self-care (01) | DRG 330 ==
LOC: MEDSUR 07:02
PROVIDERS: ADMIT Family Medicine Adult Medicine; ATTEND Family Medicine Adult Medicine

== ENCOUNTER 2016-06-19 10:56 | Inpatient (IN) ==
[2016-06-19] MEDS ORDERED: ONDANSETRON 4 MG/2 ML VIAL IV ONE (11:10)
[2016-06-19] MEDS ORDERED: 0.9 % SODIUM CHLORIDE 1,000 ML IV ONE (11:10)
[2016-06-19] MEDS ORDERED: ACETAMINOPHEN 325 MG TABLET PO ONE (11:15)
[2016-06-19] MEDS ORDERED: LEVOFLOXACIN 750 MG/150 ML BAG IV ONE (11:24)
[2016-06-19] MEDS: HYDROmorphone 2 MG/ML SYRINGE IV PRN ×2 (11:27→12:30)
--- NOTE | 2016-06-19 11:56 | XRay Report ---
CLINICAL INFORMATION: Fever COMPARISON: 05/29/2016 FINDINGS: Heart size, mediastinum and pulmonary vessels are normal. Lungs are clear. No effusions. Right diaphragm is mildly elevated as before. IMPRESSION: No acute disease - stable Interpreted and Authenticated by: Brendan Bear 06/19/16
--- NOTE | 2016-06-19 11:59 | Emergency Department Note ---
Abdominal Pain HPI - General Chief Complaint: Abdominal Pain Stated Complaint: Abdominal pain Time Seen by Provider: 06/19/16 11:00 Source: patient Mode of arrival: ambulatory Limitations: no limitations - History of Present Illness HPI Narrative: This is a 70-year-old female who comes in today complaining of right-sided lower abdominal pain that radiates around into the right flank. She has continued fever. Patient was seen here last evening, as she had developed this fever yesterday around 1930. She did have a CBC, CMP, lactic acid and an abdominal pelvic CT performed. Dr. Esparza had spoken with Dr. Santos last evening regarding the CAT scan results as there were 3 small fluid collections in the pelvis, Dr. Santos felt that these were likely just seromas, as the patient's drains were removed the day before, 06/17/16. CBC was also fairly unremarkable with a white cell count of 10.2. Dr. Santos felt comfortable having the patient sent home on oral Levaquin. She did receive both Zosyn and vancomycin IV while she was in the department. 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 She does complain of dysuria, frequency and hesitancy, denies any hematuria. She states she has had urinary symptoms ever since her Brannon catheter was removed following her surgery. She is two and a half weeks status post posterior proctopexy by Dr. Santos, this was done on May 31, 2016. Urinalysis was not apparently obtained yesterday. She denies any history of kidney stones. No stones were apparent on CT. Patient states that she is having difficulty finding a position of comfort. She states that the majority of her pain feels as though it's in the right side of her low back. Patient is febrile upon arrival, temperature is 102.2F. She has not yet been able to take her pain medication and meloxicam today. She states that she had developed some nausea yesterday, denies any nausea at this present time. She states bowel movements have been normal, last normal bowel movement was yesterday. She denies any blood in the stool, no black or tarry stools. Patient states that Dr. Santos's office was called today and they had advised for the patient to return to the emergency department. Pain is currently 8/10 ache, stabbing. She denies any upper respiratory symptoms. No cough, SOB, chest pain, sore throat. - Related Data Home Medications Medication Instructions Recorded Confirmed magnesium oxide 400 mg capsule 300 mg PO .qd cap 02/21/15 06/19/16 potassium gluconate 595 mg (99 mg) 99 mg PO BID tab 02/21/15 06/19/16 tablet fluticasone 200 mcg-vilanterol 25 1 each INHALATION .qdaily each 09/08/1506/19 mcg/dose powder for inhalation levothyroxine 150 mcg capsule 150 mcg PO QDAY 05/23/16 06/19/16 Estradiol/Norethindrone Acet 1 tab PO DAILY 06/19/16 06/19/16 [Lopreeza 0.5 mg-0.1 mg Tablet] Meloxicam 15 mg PO BID 06/19/16 06/19/16 Polyethylene Glycol 3350 [Miralax] 17 gm PO HS 06/19/16 06/19/16 Sertraline [Zoloft] 100 mg PO HS 06/19/16 06/19/16 Previous Rx's Medication Instructions Recorded fluticasone 50 mcg/actuation nasal 1 spray INTRANASAL BID #16 g 03/08/16 spray,suspension czxcwhltpa-[id number] 1 tab-cap PO Q4H PRN #50 tab 04/09/16 50 mg-325 mg-40 mg tablet omeprazole 20 mg capsule,delayed 20 mg PO BID #180 cap 04/18/16 release montelukast 10 mg tablet 10 mg PO QPM #90 tab 05/17/16 ondansetron 8 mg disintegrating 8 mg PO TID PRN #90 tab 05/21/16 tablet morphine ER 200 mg tablet,extended 200 mg PO BID #60 tab 05/22/16 release liothyronine 25 mcg tablet 50 mcg PO QDAY #180 tab 06/17/16 Allergies Allergy/AdvReac Type Severity Reaction Status Date / Time clindamycin AdvReac Mild Diarrhea Verified 06/19/16 14:49 Review of Systems All systems ED: reviewed and negative except as stated. Abdominal Pain PMH - Past Medical History Medical history: Reports: arthritis, COPD, GERD, thyroid disease Surgical history ED: Reports: hysterectomy, orthopedic, other (CTR), other ( Posterior proctopexy by Dr. Santos on May 31, 2016) Psychiatric history: Reports: no psych history Physical Exam - General Limitations: no limitations General appearance: alert, other (Patient appear ill, pale) - Head Head exam: atraumatic, normocephalic - Eye Eye exam: Present: normal appearance, PERRL, EOMI. Absent: scleral icterus, conjunctival injection - ENT ENT exam: normal exam, normal oropharynx, TM's normal bilaterally - Chest Chest inspection: Present: normal inspection, symmetric chest wall rise - Respiratory Respiratory exam: Present: normal lung sounds bilaterally. Absent: respiratory distress, wheezes, stridor, accessory muscle use - Cardiovascular Cardiovascular exam: Present: regular rate, normal rhythm, normal heart sounds - Abdominal Exam Abdominal exam: Present: soft, tenderness, normal bowel sounds, incision ( midline lower abd w/ bruising. Drain site on the right lower abd is covered with gauze dressing, no drainage apparent. Patient really only very minimally tender to palpation in the RLQ. ). Absent: distention, guarding, rebound, rigidity Abdominal tenderness: Present: RLQ, mild - Back Exam Back exam: Present: CVA tenderness (R). Absent: CVA tenderness (L) - Skin Skin exam: Present: warm, pallor Course Course Narrative: Patient did not advise this provider or the triage nurse initially that she had been seen here yesterday. Additionally, an abdominal and pelvic CT were ordered. This was canceled until labs have been obtained. We will definitely get a urinalysis today. However, patient was started on Zosyn and vancomycin last evening. We will start her on Levaquin today while she is in the department. We will also obtain a chest x-ray. - Reevaluation(s) Reevaluation #1: Patient's temperature 100.1 F Time: 12:53 Reevaluation #2: Patient is sleeping upon re-evaluation. She reports her headache has improved. Time: 13:19 Reevaluation #3: Patient is now complaining of an increase in join pain. She did not take her Meloxicam this morning. Will order Toradol 30mg IV. Time: 13:27 - Consultations Consultation #1: Call out to Dr. Santos. He would like the patient admitted if there are beds available. At this time, the charge nurse is speaking with the nursing pigment making supervisor to see if there is a bed available for patient's admit. Will put in hold orders at this time and Dr. Santos will see the patient on the floor. Time: 12:40 Vital Signs Temperature 102.2 F H 06/19/16 10:56 Pulse Rate 98 H 06/19/16 10:56 Respiratory Rate 20 06/19/16 10:56 Blood Pressure 135/56 06/19/16 10:56 Pulse Oximetry (%) 94 06/19/16 10:56 Temperature 98.1 F 06/19/16 16:26 Pulse Rate 81 06/19/16 16:26 Respiratory Rate 18 06/19/16 16:26 Blood Pressure 138/78 06/19/16 16:26 Pulse Oximetry (%) 98 06/19/16 17:12 Abdominal Pain - Lab Data Lab results reviewed: Yes I reviewed the patient's lab results. Result diagrams: 06/19/16 11:22 06/19/16 11:22 Lab Results 06/19/16 06/19/16 06/19/16 Range/Units 11:22 11:22 11:22 WBC 16.3 H (4.5-11.0) K/mcL RBC 3.56 L (4.00-5.20) M/mcL Hgb 10.4 L (12.0-15.0) g/dL Hct 31.9 L (36.0-48.0) % POC Hct 30.0 L (36.0-48.0) % MCV 89.7 (80.0-100.0) fL MCH 29.3 (26.0-34.0) pg MCHC 32.7 (31.0-36.0) g/dL RDW 15.5 H (11.5-14.5) % Plt Count 362 (140-440) K/mcL MPV 6.9 L (7.4-10.4) fL Gran % 90.8 H (38.0-78.0) % Lymph % (Auto) 3.3 L (15.5-49.0) % [place] % (Auto) 5.9 (1.0-9.0) % Eos % (Auto) 0 (0.0-7.0) % Baso % (Auto) 0 (0.0-2.0) % Gran # 14.8 H (1.8-8.0) K/mcL Lymph # 0.5 L (1.5-4.8) K/mcL [place] # 1.0 H (0.1-0.9) K/mcL Eos # 0 (0.0-0.7) K/mcL Baso # 0 (0.0-0.3) K/mcL VBG Lactic Acid 0.9 (0.5-2.2) mmol/L POC Sodium 135 (133-145) mmol/L Sodium 135 (133-145) mmol/L POC Potassium 3.6 (3.3-5.1) mmol/L Potassium 3.8 (3.3-5.1) mmol/L POC Chloride 97 (96-108) mmol/L Chloride 98 (96-108) mmol/L Carbon Dioxide 24 (22-30) mmol/L POC Total CO2 23 (22-30) mmol/L Anion Gap 13.0 (8-16) POC BUN 7 L (8-23) mg/dl BUN 8 (8-23) mg/dl Creatinine 0.6 (0.6-1.1) mg/dl POC Creatinine 0.5 L (0.6-1.1) mg/dl GFR Calculation 94 Glucose 109 H (70-105) mg/dL POC Glucose 115 H (70-105) mg/dL Calcium 7.9 L (8.6-10.4) mg/dl POC WB Ioniz Calcium 1.07 L (1.16-1.32) mmol/L Total Bilirubin 0.5 (0.0-1.0) mg/dL AST 9 (0-37) U/l ALT 10 (0-40) U/l Alkaline Phosphatase 67 (39-117) U/L Total Protein 5.7 L (5.9-8.4) gm/dL Albumin 3.1 L (3.2-5.2) gm/dL Globulin 2.6 (2.2-3.7) gm/dL Albumin/Globulin Ratio 1.2 (1.0-2.3) Urine Color Urine Appearance Urine pH (5.0-9.0) Ur Specific E[place] (1.000-1.035) Urine Protein (NEG) mg/dL Urine Glucose (UA) (NEG) mg/dL Urine Ketones (NEG) mg/dL Urine Occult Blood (<0.03) mg/dL Urine Nitrate (NEG) Urine Bilirubin (NEG) mg/dL Urine Urobilinogen (NEG) mg/dL Ur Leukocyte Esterase (NEG) /uL Ur Culture Indicated? 06/19/16 Range/Units 12:38 WBC (4.5-11.0) K/mcL RBC (4.00-5.20) M/mcL Hgb (12.0-15.0) g/dL Hct (36.0-48.0) % POC Hct (36.0-48.0) % MCV (80.0-100.0) fL MCH (26.0-34.0) pg MCHC (31.0-36.0) g/dL RDW (11.5-14.5) % Plt Count (140-440) K/mcL MPV (7.4-10.4) fL Gran % (38.0-78.0) % Lymph % (Auto) (15.5-49.0) % [place] % (Auto) (1.0-9.0) % Eos % (Auto) (0.0-7.0) % Baso % (Auto) (0.0-2.0) % Gran # (1.8-8.0) K/mcL Lymph # (1.5-4.8) K/mcL [place] # (0.1-0.9) K/mcL Eos # (0.0-0.7) K/mcL Baso # (0.0-0.3) K/mcL VBG Lactic Acid (0.5-2.2) mmol/L POC Sodium (133-145) mmol/L Sodium (133-145) mmol/L POC Potassium (3.3-5.1) mmol/L Potassium (3.3-5.1) mmol/L POC Chloride (96-108) mmol/L Chloride (96-108) mmol/L Carbon Dioxide (22-30) mmol/L POC Total CO2 (22-30) mmol/L Anion Gap (8-16) POC BUN (8-23) mg/dl BUN (8-23) mg/dl Creatinine (0.6-1.1) mg/dl POC Creatinine (0.6-1.1) mg/dl GFR Calculation Glucose (70-105) mg/dL POC Glucose (70-105) mg/dL Calcium (8.6-10.4) mg/dl POC WB Ioniz Calcium (1.16-1.32) mmol/L Total Bilirubin (0.0-1.0) mg/dL AST (0-37) U/l ALT (0-40) U/l Alkaline Phosphatase (39-117) U/L Total Protein (5.9-8.4) gm/dL Albumin (3.2-5.2) gm/dL Globulin (2.2-3.7) gm/dL Albumin/Globulin Ratio (1.0-2.3) Urine Color Yellow Urine Appearance Clear Urine pH 7.0 (5.0-9.0) Ur Specific [place] 1.016 (1.000-1.035) Urine Protein Neg (NEG) mg/dL Urine Glucose (UA) Negative (NEG) mg/dL Urine Ketones Neg (NEG) mg/dL Urine Occult Blood Neg (<0.03) mg/dL Urine Nitrate Neg (NEG) Urine Bilirubin Neg (NEG) mg/dL Urine Urobilinogen Neg (NEG) mg/dL Ur Leukocyte Esterase Neg (NEG) /uL Ur Culture Indicated? No White cell count is elevated to 16 from 10 yesterday. UA normal. Lactic acid is not elevated. - Radiology Data Radiology results reviewed: Yes I reviewed the patient's radiology results. Lungs are clear, no effusions. No acute disease noted on chest x-ray. Disposition Clinical Impression: Postoperative fever Disposition: Xfer As Inpt ([facility]) Condition: Fair
[2016-06-19 12:30] LABS: Basophils # (Auto) 0 K/mcL (0.0-0.3); Basophils % (Auto) 0 % (0.0-2.0); Eosinophils # (Auto) 0 K/mcL (0.0-0.7); Eosinophils % (Auto) 0 % (0.0-7.0); Granulocytes % (Auto) 90.8 % (38.0-78.0); Lymphocytes # (Auto) 0.5 K/mcL (1.5-4.8); Lymphocytes % (Auto) 3.3 % (15.5-49.0); Mean Cell Volume 89.7 fL (80.0-100.0); Mean Corpuscular HGB Conc 32.7 g/dL (31.0-36.0); Mean Corpuscular Hemoglobin 29.3 pg (26.0-34.0); Monocytes % (Auto) 5.9 % (1.0-9.0); Platelet Count 362 K/mcL (140-440); RBC 3.56 M/mcL (4.00-5.20); Red Cell Distribution Width 15.5 % (11.5-14.5)
[2016-06-19] MEDS ORDERED: KETOROLAC 30 MG/ML VIAL IV ONE ×2 (12:52→13:27)
[2016-06-19 12:53] LABS: ALT/SGPT 10 U/l (0-40); Albumin 3.1 gm/dL (3.2-5.2); Albumin/Globulin Ratio 1.2 (1.0-2.3); Alkaline Phosphatase 67 U/L (39-117); Blood Urea Nitrogen 8 mg/dl (8-23)
[2016-06-19 13:29] LABS: Appearance,Urine CLEAR; Bilirubin,Urine NEG (NEG); Color,Urine YELLOW; Glucose,Urine (UA) NEGATIVE (NEG); Leukocyte Esterase,Urine NEG /uL (NEG); Nitrate,Urine NEG (NEG); Protein,Urine NEG (NEG); Specific Gravity,Urine 1.016 (1.000-1.035); Urine Blood NEG mg/dL (<0.03); Urobilinogen,Urine NEG (NEG)
[2016-06-19] MEDS: 0.9 % SODIUM CHLORIDE 1,000 ML IV SCH ×2 (14:04→15:48)
[2016-06-19] MEDS ORDERED: BUTALB/ACETAMINOPHEN/CAFFEINE 1 TABLET PO ONE (14:59)
[2016-06-19] MEDS ORDERED: morphine 100 MG TABLET.ER PO ONE (15:30)
[2016-06-19] MEDS ORDERED: morphine 30 MG TAB.SR.12H PO ONE ×2 (15:30→23:49)
[2016-06-19] MEDS ORDERED: PROMETHAZINE 25 MG TABLET PO PRN (17:25)
[2016-06-19] MEDS ORDERED: ACETAMINOPHEN 325 MG TABLET PO PRN (17:25)
--- NOTE | 2016-06-19 17:44 | General Surg History&Physical ---
History of Present Illness Patient information: Note initiated : 06/19/16 at 5:39 pm Service Date, if different from initiated Date: [] Patient: Amparo Briceno 70 y/o F admitted on 06/19/16 for Abd Pain. Chief Complaint: [] Chief complaint: right flank and back pain HPI: Ms. Briceno is a 70 year old female with history of transabdominal posterior proctopexy on 31 May 2016. She had some intraoperative bleeding but otherwise did very well. She was discharged and was seen in follow-up in the office on 17 June. At that time she was doing well. She had not had any fecal incontinence and was having regular bowel movements She denied nausea or vomiting. Her JAIME drain had less than 30 cc of serous drainage for 3 consecutive days. Her wound was well healed. Her drain was discontinued. The patient developed fever on the and was seen in the emergency room with a temperature of 100.1. Her white count was only 10.2. Abdominal exam was benign. She had a CT scan which suggested that she had a pelvic abscess but that the area of the pelvic abscess was area of 2 large sheets of Vicryl mesh that had been placed to create scarring. This was at the distal retrorectal space proximal to the coccyx. I reviewed this with the radiologist and he agrees that this may represent the mesh and not a true abscess. The patient had more severe pain last night nd was finally admitted today. She now has a temperature up to 102 and she has increased white count to 16,000. She denies anterior abdominal pain and has no pain on exam except in the right flank. This is not true CVA pain.she had a urine analysis which is totally negative without white cells nitrites or protein. She is admitted for broad-spectrum antibiotics and I will get a follow-up CT in 3 days to see if there has been in the progression. Her chest x-ray today is unremarkable. Review of Systems - Constitutional chills, fatigue, fever(s), headache(s), malaise, night sweats - Cardiovascular no chest pain with activity, no dyspnea, no dyspnea on exertion, no palpatations , no rapid heart rate - Respiratory no cough, no dyspnea on exertion, no wheezing, no chest congestion, no pain with cough - Gastrointestinal abdominal pain, no nausea, no vomiting - Genitourinary Genitourinary: urinary incontinence, no dysuria, no urinary frequency, no urinary hesitancy - Musculoskeletal arthralgias, back pain, joint swelling, myalgias, neck pain, stiffness - Neurological as per HPI, headache(s), no confusion, no focal weakness, no syncope, no vertigo - Psychiatric anxiety, depression - Endocrine fatigue, no palpitations - Hematologic/Lymphatic no easy bleeding, no easy bruising, no lymphadenopathy - Allergic/Immunologic no tongue swelling, no throat swelling, no uticaria, no wheezing, no lip swelling Past History Past medical history: chronic asthma Gastric esophageal refluxIrritable bowel syndrome Inflammatory polyarthritis. Situational depression Medications and Allergies Home Medications Medication Instructions Recorded Confirmed Type magnesium oxide 400 mg capsule 300 mg PO .qd cap 02/21/15 07/05/16 History potassium gluconate 595 mg (99 mg) 99 mg PO BID tab 02/21/15 07/05/16 History tablet fluticasone 200 mcg-vilanterol 25 1 each INHALATION .qdaily each 09/08/1507/05 History mcg/dose powder for inhalation fluticasone 50 mcg/actuation nasal 1 spray INTRANASAL BID #16 g 03/08/16 Rx spray,suspension trcpajpyay-agyufipbhrvho-vjwgldbn 1 tab-cap PO Q4H PRN #50 tab 04/09/16 Rx 50 mg-325 mg-40 mg tablet omeprazole 20 mg capsule,delayed 20 mg PO BID #180 cap 04/18/16 07/05/16 Rx release montelukast 10 mg tablet 10 mg PO QPM #90 tab 05/17/16 07/05/16 Rx ondansetron 8 mg disintegrating 8 mg PO TID PRN #90 tab 05/21/16 07/05/16 Rx tablet levothyroxine 150 mcg capsule 150 mcg PO QDAY 05/23/16 07/05/16 History liothyronine 25 mcg tablet 50 mcg PO QDAY #180 tab 06/17/16 07/05/16 Rx Meloxicam 15 mg PO BID 06/19/16 07/05/16 History Polyethylene Glycol 3350 [Miralax] 17 gm PO HS 06/19/16 07/05/16 History Sertraline [Zoloft] 100 mg PO HS 06/19/16 07/05/16 History estradiol-norethindrone acet 0.5 1 tab PO QDAY #90 tab 07/01/16 07/05/16 Rx mg-0.1 mg tablet morphine ER 200 mg tablet,extended 200 mg PO BID #60 tab 07/01/16 07/05/16 Rx release Vancomycin Oral Pushpa 250 mg PO Q6 #60 bottle 07/12/16 Rx cefTRIAXone [Rocephin] 2 gm IV Q24H #21 vial 07/12/16 Rx Allergies Allergy/AdvReac Type Severity Reaction Status Date / Time clindamycin AdvReac Mild Diarrhea Verified 06/19/16 14:49 Exam Temp Pulse Resp BP Pulse Ox 98.1 F 81 18 138/78 98 06/19/16 16:26 06/19/16 16:26 06/19/16 16:26 06/19/16 16:26 06/19/16 17:12 - General physical appearance well developed, well nourished, no distress - Eyes PERRL, normal ocular movement - ENT normal pinna, normal nares, normal mucosa, no hearing loss, no congestion - Head Head exam IM: Present: atraumatic, normocephalic - Neck no masses, no bruits, trachea midline, no lymphadectomy, no venous distension - Cardiovascular Cardiovascular exam IM: Present: normal rate and rhythm - Respiratory normal expansion, normal respiratory effort, clear to percussion, clear to auscultation - Abdomen Abdomen: Present: soft, tender, bowel sounds, distended (abdomen is nondistended ; she has active bowel sounds; there is mild suprapubic tenderness; there is mild right lower flank tenderness but no mass. She has good active bowel sounds ) Hernia: Present: none - Genitourinary Present: normal external genitalia - Rectum Rectum: Present: no hemorrhoids, no tenderness, no masses, no bleeding, other ( decreased anal tone but no anal rectal protrusion) - Integumentary Present: no rash, no growths, no abnormal pigmentation - Neurologic Present: normal coordination, normal sensation - Musculoskeletal Present: normal gait, normal posture, other (multiple joint deformities due to arthritis) - Psychiatric Present: oriented to time, oriented to person, oriented to place, speech is normal, memory intact, other (mild depression) Assessment and Plan (1) Postsurgical fever patient will be monitored closely. She will be pancultured and treated with antibiotics. She will be scheduled for CT of the abdomen and pelvis in 3 days to evaluate the process and the retrorectal space. Status: Acute (2) Arthritis of sacroiliac joint Status: Acute (3) Esophageal reflux Status: Chronic Qualifiers: Esophagitis presence: without esophagitis Qualified Code(s): K21.9 - Gastro -esophageal reflux disease without esophagitis (4) Irritable bowel syndrome Status: Chronic (5) Polyarthropathy, inflammatory Status: Chronic
[2016-06-19] MEDS: metroNIDAZOLE 500 MG/100 ML BAG IV SCH ×2 (18:05→23:53)
[2016-06-19] MEDS: oxyCODONE/APAP 10/325MG TABLET PO PRN ×2 (18:11→23:53)
[2016-06-19] MEDS: VANCOMYCIN 1,000 MG in 0.9 % SODIUM CHLORIDE 250 ML IV SCH (19:02)
[2016-06-19] MEDS: SERTRALINE 50 MG TABLET PO SCH (21:04)
[2016-06-19] MEDS: MONTELUKAST 10 MG TABLET PO SCH (21:04)
[2016-06-19] MEDS: FLUTICASONE PROPIONATE SPRAY.NAS NS SCH (21:04)
[2016-06-19] MEDS: 0.9 % SODIUM CHLORIDE 10 ML SYRINGE IV SCH (21:04)
[2016-06-19] MEDS: POLYETHYLENE GLYCOL 3350 17 GM PACKET PO SCH (21:04)
[2016-06-20] MEDS: 0.9 % SODIUM CHLORIDE 1,000 ML IV SCH ×4 (00:02→20:12)
[2016-06-20] MEDS: BUTALB/ACETAMINOPHEN/CAFFEINE 1 TABLET PO PRN ×2 (04:41→16:52)
[2016-06-20] MEDS: metroNIDAZOLE 500 MG/100 ML BAG IV SCH ×3 (05:23→17:38)
[2016-06-20] MEDS: oxyCODONE/APAP 10/325MG TABLET PO PRN ×3 (05:23→19:40)
[2016-06-20] MEDS: 0.9 % SODIUM CHLORIDE 10 ML SYRINGE IV SCH ×3 (06:40→21:27)
[2016-06-20] MEDS: VANCOMYCIN 1,000 MG in 0.9 % SODIUM CHLORIDE 250 ML IV SCH (06:41)
[2016-06-20 07:19] LABS: Mean Cell Volume 90.1 fL (80.0-100.0); Mean Corpuscular HGB Conc 32.5 g/dL (31.0-36.0); Mean Corpuscular Hemoglobin 29.2 pg (26.0-34.0); Platelet Count 267 K/mcL (140-440); RBC 3.27 M/mcL (4.00-5.20); Red Cell Distribution Width 15.1 % (11.5-14.5)
[2016-06-20 07:44] LABS: Blood Urea Nitrogen 8 mg/dl (8-23)
[2016-06-20] MEDS: LIOTHYRONINE 5 MCG TABLET PO SCH (08:08)
[2016-06-20] MEDS: LEVOTHYROXINE 150 MCG TABLET PO SCH (08:08)
[2016-06-20] MEDS: PANTOPRAZOLE 40 MG VIAL IV SCH (08:08)
[2016-06-20 08:21] LABS: Band Neutrophils % 7 % (0-10); Lymphocytes % 5 % (15-49); Monocytes % (Manual) 5 % (1-9); Platelet Estimate NORMAL (NORMAL); RBC Morphology NORMAL (NORMAL); Segmented Neutrophils % 83 % (38-78)
[2016-06-20] MEDS: ENOXAPARIN 40 MG/0.4 ML SYRINGE SQ SCH (09:59)
[2016-06-20] MEDS: MAGNESIUM OXIDE 400 MG TABLET PO SCH (10:00)
[2016-06-20] MEDS: morphine 30 MG TAB.SR.12H PO SCH ×2 (10:00→21:21)
[2016-06-20] MEDS: VILANTEROL INH SCH ×2 (10:01→13:25)
[2016-06-20] MEDS: NORETHINDRONE ACET PO SCH ×2 (10:01→13:24)
[2016-06-20] MEDS: MELOXICAM 7.5 MG TABLET PO SCH (10:01)
[2016-06-20] MEDS: FLUTICASONE INH SCH ×2 (10:01→13:25)
[2016-06-20] MEDS: ESTRADIOL PO SCH ×2 (10:01→13:24)
[2016-06-20] MEDS: FLUTICASONE PROPIONATE SPRAY.NAS NS SCH ×3 (10:02→21:26)
[2016-06-20] MEDS: PROMETHAZINE 25 MG/ML VIAL IV PRN ×3 (13:11→22:47)
--- NOTE | 2016-06-20 13:15 | General Surgery Progress Note ---
Subjective Patient reports: feels better, still having pain, pain is less, flatus, bowel movement, diarrhea, nausea, vomiting, shortness of breath, afebrile Narrative: Note initiated : 06/20/16 at 1:13 pm Service Date, if different from initiated Date: [] Patient: Amparo Briceno 70 y/o F admitted on 06/19/16 for Abd Pain/Fever. Chief Complaint: patient has right flank and lower abdominal pain. She is also having more diarrhea. She has been afebrile and her white blood counthas returned to normal on present therapy. She had a C. difficile study done whichis positive This gives a better explanation for her rapid rise in white count. She will be treated appropriately. Vancomycin will be given by mouth and she will be continued on IV Flagyl since it is decreased in the bile and will have increased concentration in the stool. If she responds over the next 2 days she should do well on a 14 day course of Flagyl.[] Objective Temp Pulse Resp BP Pulse Ox 98.5 F 82 16 131/74 99 06/20/16 11:38 06/20/16 11:38 06/20/16 11:38 06/20/16 11:38 06/20/16 11:38 - Additional Data Intake & Output - Last 24 hours: Intake & Output 06/18/16 06/19/16 06/20/16 06/21/16 05:59 05:59 05:59 05:59 Intake Total 2300 / 3450 100 / 100 Output Total 550 / 850 200 / 200 Balance 1750 / 2600 -100 / -100 Weight 124 lb - Additional Exam patient appears to be acutely ill HEENT is unremarkable Neck is supple without JVD or adenopathy Chestgood breath sounds bilaterally however she does have splinting on deep inspiration Heart regular with mild tachycardia Abdomen mildly distended but soft with good active bowel sounds; tenderness in the suprapubic and right flank continues. No palpable masses Extremities no peripheral edema Neurologic no focal deficit - Labs 06/20/16 05:10 06/20/16 05:10 Diabetes panel 06/20/16 Range/Units 05:10 Sodium 134 (133-145) mmol/L Potassium 3.8 (3.3-5.1) mmol/L Chloride 99 (96-108) mmol/L Carbon Dioxide 23 (22-30) mmol/L BUN 8 (8-23) mg/dl Creatinine 0.5 L (0.6-1.1) mg/dl Glucose 84 (70-105) mg/dL Calcium 7.8 L (8.6-10.4) mg/dl Calcium panel 06/20/16 Range/Units 05:10 Calcium 7.8 L (8.6-10.4) mg/dl Pituitary panel 06/20/16 Range/Units 05:10 Sodium 134 (133-145) mmol/L Potassium 3.8 (3.3-5.1) mmol/L Chloride 99 (96-108) mmol/L Carbon Dioxide 23 (22-30) mmol/L BUN 8 (8-23) mg/dl Creatinine 0.5 L (0.6-1.1) mg/dl Glucose 84 (70-105) mg/dL Calcium 7.8 L (8.6-10.4) mg/dl Adrenal panel 06/20/16 Range/Units 05:10 Sodium 134 (133-145) mmol/L Potassium 3.8 (3.3-5.1) mmol/L Chloride 99 (96-108) mmol/L Carbon Dioxide 23 (22-30) mmol/L BUN 8 (8-23) mg/dl Creatinine 0.5 L (0.6-1.1) mg/dl Glucose 84 (70-105) mg/dL Calcium 7.8 L (8.6-10.4) mg/dl Medical - PN: A/P - Time Spent With Patient Total time spent is greater than 50% in coordination of care (as documented) at patient's floor/unit and/or counseling patient: (1) Clostridium difficile colitis Status: Acute Current Visit: Yes (2) Postoperative fever Status: Acute Current Visit: Yes
[2016-06-20] MEDS: VANCOMYCIN ORAL SOL 1,000 MG/10 ML BOTTLE PO SCH ×2 (13:26→17:38)
[2016-06-20] MEDS: POLYETHYLENE GLYCOL 3350 17 GM PACKET PO SCH (20:08)
[2016-06-20] MEDS: MONTELUKAST 10 MG TABLET PO SCH (21:21)
[2016-06-20] MEDS: SERTRALINE 50 MG TABLET PO SCH (21:21)
[2016-06-21] MEDS: metroNIDAZOLE 500 MG/100 ML BAG IV SCH ×5 (00:07→23:55)
[2016-06-21] MEDS: VANCOMYCIN ORAL SOL 1,000 MG/10 ML BOTTLE PO SCH ×5 (00:08→23:55)
[2016-06-21] MEDS: oxyCODONE/APAP 10/325MG TABLET PO PRN ×3 (01:36→14:38)
[2016-06-21] MEDS: 0.9 % SODIUM CHLORIDE 10 ML SYRINGE IV SCH ×3 (05:52→21:20)
[2016-06-21 06:42] LABS: Mean Cell Volume 89.6 fL (80.0-100.0); Mean Corpuscular HGB Conc 32.1 g/dL (31.0-36.0); Mean Corpuscular Hemoglobin 28.7 pg (26.0-34.0); Platelet Count 270 K/mcL (140-440); RBC 3.45 M/mcL (4.00-5.20); Red Cell Distribution Width 15.7 % (11.5-14.5)
[2016-06-21 07:45] LABS: Blood Urea Nitrogen 4 mg/dl (8-23)
[2016-06-21] MEDS: PANTOPRAZOLE 40 MG VIAL IV SCH (08:01)
[2016-06-21] MEDS: LEVOTHYROXINE 150 MCG TABLET PO SCH (08:02)
[2016-06-21] MEDS: LIOTHYRONINE 5 MCG TABLET PO SCH (08:02)
[2016-06-21 08:35] LABS: Band Neutrophils % 1 % (0-10); Eosinophils % (Manual) 5 % (0-7); Lymphocytes % 13 % (15-49); Monocytes % (Manual) 7 % (1-9); Platelet Estimate NORMAL (NORMAL); RBC Morphology NORMAL (NORMAL); Segmented Neutrophils % 74 % (38-78)
[2016-06-21] MEDS: PROMETHAZINE 25 MG/ML VIAL IV PRN (08:51)
[2016-06-21] MEDS: 0.9 % SODIUM CHLORIDE 1,000 ML IV SCH ×2 (08:59→21:20)
[2016-06-21] MEDS: MAGNESIUM OXIDE 400 MG TABLET PO SCH (10:04)
[2016-06-21] MEDS: MELOXICAM 7.5 MG TABLET PO SCH (10:04)
[2016-06-21] MEDS: FLUTICASONE PROPIONATE SPRAY.NAS NS SCH ×2 (10:04→21:05)
[2016-06-21] MEDS: morphine 30 MG TAB.SR.12H PO SCH ×2 (10:04→21:05)
[2016-06-21] MEDS: ENOXAPARIN 40 MG/0.4 ML SYRINGE SQ SCH (10:05)
[2016-06-21] MEDS: ESTRADIOL PO SCH (10:13)
[2016-06-21] MEDS: NORETHINDRONE ACET PO SCH (10:13)
[2016-06-21] MEDS: FLUTICASONE INH SCH (10:14)
[2016-06-21] MEDS: VILANTEROL INH SCH (10:14)
--- NOTE | 2016-06-21 11:58 | General Surgery Progress Note ---
Subjective Patient reports: feels better, still having pain, pain is less, flatus, bowel movement, diarrhea, nausea, afebrile Narrative: Note initiated : 06/21/16 at 11:54 am Service Date, if different from initiated Date: [] Patient: Amparo Briceno 70 y/o F admitted on 06/19/16 for Abd Pain/Fever. Chief Complaint: [patient feels slightly better she is still having multiple small pasty liquid stools. Her abdominal discomfort is better. She does have some nausea but no vomiting. She has anorexia. Her incisional discomfort is much better. She does not have any respiratory difficulty.] Objective Temp Pulse Resp BP Pulse Ox 99.1 F 72 16 150/80 94 06/21/16 07:19 06/21/16 07:19 06/21/16 07:19 06/21/16 07:19 06/21/16 09:52 - Additional Data Intake & Output - Last 24 hours: Intake & Output 06/19/16 06/20/16 06/21/16 06/22/16 05:59 05:59 05:59 05:59 Intake Total 2300 / 3450 2600 / 2600 1100 / 1100 Output Total 550 / 850 3050 / 3050 450 / 450 Balance 1750 / 2600 -450 / -450 650 / 650 Weight 124 lb 125 lb 8 oz 125 lb 8 oz - Additional Exam hEENT is unremarkable Neck supple without JVD or bruit Chest clear to auscultation no rales Heart regular rhythm no tachycardia Abdomen soft much less distended, good active bowel sounds Extremities without edema Neurologic exam no focal deficits - Labs 06/21/16 05:04 06/21/16 05:04 Diabetes panel 06/21/16 Range/Units 05:04 Sodium 137 (133-145) mmol/L Potassium 3.4 (3.3-5.1) mmol/L Chloride 101 (96-108) mmol/L Carbon Dioxide 22 (22-30) mmol/L BUN 4 L (8-23) mg/dl Creatinine 0.5 L (0.6-1.1) mg/dl Glucose 85 (70-105) mg/dL Calcium 7.6 L (8.6-10.4) mg/dl Calcium panel 06/21/16 Range/Units 05:04 Calcium 7.6 L (8.6-10.4) mg/dl Pituitary panel 02/10/17 Range/Units 05:04 Sodium 137 (133-145) mmol/L Potassium 3.4 (3.3-5.1) mmol/L Chloride 101 (96-108) mmol/L Carbon Dioxide 22 (22-30) mmol/L BUN 4 L (8-23) mg/dl Creatinine 0.5 L (0.6-1.1) mg/dl Glucose 85 (70-105) mg/dL Calcium 7.6 L (8.6-10.4) mg/dl Adrenal panel 06/21/16 Range/Units 05:04 Sodium 137 (133-145) mmol/L Potassium 3.4 (3.3-5.1) mmol/L Chloride 101 (96-108) mmol/L Carbon Dioxide 22 (22-30) mmol/L BUN 4 L (8-23) mg/dl Creatinine 0.5 L (0.6-1.1) mg/dl Glucose 85 (70-105) mg/dL Calcium 7.6 L (8.6-10.4) mg/dl Medical - PN: A/P - Time Spent With Patient Total time spent is greater than 50% in coordination of care (as documented) at patient's floor/unit and/or counseling patient: (1) Clostridium difficile colitis Status: Acute Assessment and plan: clinically improved but with persistent low-grade temperature. White blood count has returned to normal GI function is improving Plan--ontinue present therapy and advised advance diet as tolerated Current Visit: Yes (2) Postoperative fever Status: Acute Current Visit: Yes
[2016-06-21] MEDS: BUTALB/ACETAMINOPHEN/CAFFEINE 1 TABLET PO PRN (14:37)
[2016-06-21] MEDS ORDERED: ZOLPIDEM 5 MG TABLET PO PRN (21:00)
[2016-06-21] MEDS: MONTELUKAST 10 MG TABLET PO SCH (21:04)
[2016-06-21] MEDS: SERTRALINE 50 MG TABLET PO SCH (21:04)
[2016-06-21] MEDS: POLYETHYLENE GLYCOL 3350 17 GM PACKET PO SCH (21:05)
[2016-06-22] MEDS: 0.9 % SODIUM CHLORIDE 1,000 ML IV SCH ×2 (01:00→11:08)
[2016-06-22] MEDS: PROMETHAZINE 25 MG/ML VIAL IV PRN ×2 (04:45→09:35)
[2016-06-22] MEDS: oxyCODONE/APAP 10/325MG TABLET PO PRN ×2 (04:45→11:08)
[2016-06-22] MEDS: metroNIDAZOLE 500 MG/100 ML BAG IV SCH ×2 (06:04→12:20)
[2016-06-22] MEDS: 0.9 % SODIUM CHLORIDE 10 ML SYRINGE IV SCH (06:04)
[2016-06-22] MEDS: VANCOMYCIN ORAL SOL 1,000 MG/10 ML BOTTLE PO SCH ×2 (06:05→12:20)
[2016-06-22 06:53] LABS: Basophils # (Auto) 0 K/mcL (0.0-0.3); Basophils % (Auto) 0.1 % (0.0-2.0); Eosinophils # (Auto) 0.2 K/mcL (0.0-0.7); Eosinophils % (Auto) 2.6 % (0.0-7.0); Granulocytes % (Auto) 65.9 % (38.0-78.0); Lymphocytes # (Auto) 1.2 K/mcL (1.5-4.8); Lymphocytes % (Auto) 19.9 % (15.5-49.0); Mean Corpuscular HGB Conc 32.3 g/dL (31.0-36.0); Mean Corpuscular Hemoglobin 29.1 pg (26.0-34.0); Monocytes # (Auto) 0.7 K/mcL (0.1-0.9); Monocytes % (Auto) 11.5 % (1.0-9.0); Platelet Count 318 K/mcL (140-440); RBC 3.78 M/mcL (4.00-5.20); Red Cell Distribution Width 16.2 % (11.5-14.5)
[2016-06-22 07:18] LABS: Blood Urea Nitrogen 3 mg/dl (8-23)
[2016-06-22 07:43] LABS: Anisocytosis 1+ (NONE SEEN); Band Neutrophils % 7 % (0-10); Eosinophils % (Manual) 4 % (0-7); Lymphocytes % 20 % (15-49); Monocytes % (Manual) 10 % (1-9); Platelet Estimate NORMAL (NORMAL); RBC Morphology ABNORM (NORMAL); Segmented Neutrophils % 59 % (38-78)
[2016-06-22] MEDS: LEVOTHYROXINE 150 MCG TABLET PO SCH (07:47)
[2016-06-22] MEDS: PANTOPRAZOLE 40 MG VIAL IV SCH (07:47)
[2016-06-22] MEDS: LIOTHYRONINE 5 MCG TABLET PO SCH (07:47)
[2016-06-22] MEDS: MELOXICAM 7.5 MG TABLET PO SCH (09:38)
[2016-06-22] MEDS: VILANTEROL INH SCH (09:38)
[2016-06-22] MEDS: ENOXAPARIN 40 MG/0.4 ML SYRINGE SQ SCH (09:38)
[2016-06-22] MEDS: MAGNESIUM OXIDE 400 MG TABLET PO SCH (09:38)
[2016-06-22] MEDS: NORETHINDRONE ACET PO SCH (09:38)
[2016-06-22] MEDS: FLUTICASONE INH SCH (09:38)
[2016-06-22] MEDS: ESTRADIOL PO SCH (09:38)
[2016-06-22] MEDS: FLUTICASONE PROPIONATE SPRAY.NAS NS SCH (09:38)
[2016-06-22] MEDS: morphine 30 MG TAB.SR.12H PO SCH (09:39)
--- NOTE | 2016-06-22 12:37 | General Surgery Progress Note ---
Subjective Patient reports: feels better, flatus, bowel movement, afebrile Narrative: Note initiated : 06/22/16 at 12:35 pm Service Date, if different from initiated Date: [] Patient: Amparo Briceno 70 y/o F admitted on 06/19/16 for Abd Pain/Fever. Chief Complaint: [patient continues to do well. She has been afebrile. She denies abdominal pa and she is having similar performed bowel movements. She has mild anorexiabut no nausea or vomiting. She is eating some solid food.] Objective Temp Pulse Resp BP Pulse Ox 98.7 F 67 18 138/88 97 06/22/16 08:00 06/22/16 08:00 06/22/16 08:00 06/22/16 08:00 06/22/16 08:00 - Additional Data Intake & Output - Last 24 hours: Intake & Output 06/20/16 06/21/16 06/22/16 06/23/16 05:59 05:59 05:59 05:59 Intake Total 2300 / 3450 2600 / 2600 2900 / 2900 580 / 580 Output Total 550 / 850 3050 / 3050 2775 / 2775 2300 / 2300 Balance 1750 / 2600 -450 / -450 125 / 125 -1720 / -1720 Weight 124 lb 125 lb 8 oz 123 lb 8 oz - Additional Exam HEENT unremarkable there is no evidence of thrush Neck is supple no adenopathy Chest clear to auscultation Heart regular rhythmno ectopy Abdomen soft nondistended no tbrush Extremities no edema Neurologic exam no focal deficits - Labs 06/22/16 04:54 06/22/16 04:54 Diabetes panel 06/22/16 06/22/16 Range/Units 04:54 04:54 Sodium 138 TNP (133-145) mmol/L Potassium 3.3 TNP (3.3-5.1) mmol/L Chloride 98 TNP (96-108) mmol/L Carbon Dioxide 25 TNP (22-30) mmol/L BUN 3 L TNP (8-23) mg/dl Creatinine 0.5 L TNP (0.6-1.1) mg/dl Glucose 90 TNP (70-105) mg/dL Calcium 7.8 L TNP (8.6-10.4) mg/dl Calcium panel 06/22/16 06/22/16 Range/Units 04:54 04:54 Calcium 7.8 L TNP (8.6-10.4) mg/dl Pituitary panel 06/22/16 06/22/16 Range/Units 04:54 04:54 Sodium 138 TNP (133-145) mmol/L Potassium 3.3 TNP (3.3-5.1) mmol/L Chloride 98 TNP (96-108) mmol/L Carbon Dioxide 25 TNP (22-30) mmol/L BUN 3 L TNP (8-23) mg/dl Creatinine 0.5 L TNP (0.6-1.1) mg/dl Glucose 90 TNP (70-105) mg/dL Calcium 7.8 L TNP (8.6-10.4) mg/dl Adrenal panel 06/22/16 06/22/16 Range/Units 04:54 04:54 Sodium 138 TNP (133-145) mmol/L Potassium 3.3 TNP (3.3-5.1) mmol/L Chloride 98 TNP (96-108) mmol/L Carbon Dioxide 25 TNP (22-30) mmol/L BUN 3 L TNP (8-23) mg/dl Creatinine 0.5 L TNP (0.6-1.1) mg/dl Glucose 90 TNP (70-105) mg/dL Calcium 7.8 L TNP (8.6-10.4) mg/dl Medical - PN: A/P - Time Spent With Patient Total time spent is greater than 50% in coordination of care (as documented) at patient's floor/unit and/or counseling patient: (1) Clostridium difficile colitis Status: Acute Assessment and plan: patient is clinically stable and has been afebrile for 3 days. She also has normal white count and normal clinical exam Patient is stable for discharge We'll treat wityl for 14 days C. difficile titer will be done in 4 weeks Current Visit: Yes (2) Postoperative fever Status: Acute Current Visit: Yes
--- NOTE | 2016-06-22 12:43 | Discharge Summary ---
Providers - Providers Patient information: Note initiated : 06/22/16 at 12:41 pm Service Date, if different from initiated Date: [] Patient: Amparo Briceno 70 y/o F admitted on 06/19/16 for Abd Pain/Fever. Chief Complaint: [] Date of admission: 06/19/16 Discharge date: 06/22/16 Attending physician: Solange Santos Hospitalization Hospital course: [id number] female who is status post proctopexy for rectal prolapse. She returns to the emergency room 2 days post removal of her rectal drain. CT of the abdomen suggested a retrorectal ab however this was in the area of 2 sheets of Vicryl mesh that was used in the proctopexy. The patient was sarted on broad -spectrm antibiotics. She started having florid diarrhea which was tested for C. difficile and was positiv. She was already on Flagyl and was continued on this and given by mouth vancomycin. Her white count has decreased from 16,000-- 5000. She has done well now and is having formed stools. Her abdominal exam is benign. She is stable for discharge home on oral medication.. Discharge diagnosis: Clostridium difficile colitis Reason for admission: fever leukocytosis and abdominal pain Procedures: none Pertinent studies/significant findings: no abnormal findings on CT of abdomen and pelvis except for postoperative changes Complications: one Exam Temp Pulse Resp BP Pulse Ox 98.7 F 67 18 138/88 97 06/22/16 08:00 06/22/16 08:00 06/22/16 08:00 06/22/16 08:00 06/22/16 08:00 - General physical appearance well developed, well nourished, no distress - Eyes PERRL, normal ocular movement - ENT normal pinna, normal nares, normal mucosa, no hearing loss, no congestion - Head Head exam IM: Present: atraumatic, normocephalic - Neck no masses, no bruits, trachea midline, no lymphadectomy, no venous distension - Cardiovascular Cardiovascular exam IM: Present: normal rate and rhythm - Respiratory normal expansion, normal respiratory effort, clear to percussion, clear to auscultation - Abdomen Abdomen: Present: soft, non tender, bowel sounds Hernia: Present: none - Rectum Rectum: Present: no hemorrhoids, no tenderness, no masses, no bleeding, other ( poor anal sphincter tone) - Integumentary Present: no rash, no growths, no abnormal pigmentation - Neurologic Present: normal coordination, normal sensation - Musculoskeletal Present: normal gait, normal posture - Psychiatric Present: oriented to time, oriented to person, oriented to place, speech is normal, memory intact Discharge Plan - Patient/Caregiver Discharge Instructions Activity: increase activity as tolerated Diet: Regular Diet Prescriptions: metroNIDAZOLE [Flagyl] 500 mg PO Q6 #60 tablet - Follow up Plan Follow up with: Stephen Munroe MD [Primary Care Provider] - Disposition: Home, Self-Care Prognosis: Good Rehab Potential: Good I certify that the patient requires SNF services.: No Overall status at discharge: patient is progressing back to baseline Pending Studies Resuscitation Status Full Code Diet Full Liquid Diet Start FriJun 21 Dinner Acetaminophen (Tylenol) 650 mg PO Q6HP PRN PRN Reason: PAIN/FEVER > 101 Last Admin: 06/19/16 21:15 Dose: 650 mg Acetaminophen/Butalbital/Caffeine (Fioricet) 1 tab PO Q4HP PRN PRN Reason: Pain Last Admin: 06/21/16 14:37 Dose: 1 tab Admin: 06/20/16 16:52 Dose: 1 tab Admin: 06/20/16 04:41 Dose: 1 tab Enoxaparin Sodium (Lovenox) 40 mg SQ DAILY [facility] Last Admin: 06/22/16 09:38 Dose: 40 mg Admin: 06/21/16 10:05 Dose: 40 mg Admin: 06/20/16 09:59 Dose: 40 mg Fluticasone Propionate (Flonase) 1 spray NS BID [facility] Last Admin: 06/22/16 09:38 Dose: 1 spray Admin: 06/21/16 21:05 Dose: Not Given Admin: 06/21/16 10:04 Dose: 1 spray Admin: 06/20/16 21:26 Dose: 1 spray Admin: 06/20/16 13:24 Dose: 1 spray Admin: 06/20/16 10:02 Dose: Not Given Admin: 06/19/16 21:04 Dose: Not Given Sodium Chloride (Sodium Chloride 0.9%) 1,000 mls @ 100 mls/hr IV .Q10H [facility] Last Admin: 06/22/16 11:08 Dose: Not Given Admin: 06/22/16 01:00 Dose: 100 mls/hr Admin: 06/21/16 21:20 Dose: Not Given Infusion: 06/21/16 18:59 Dose: 0 mls/hr Admin: 06/21/16 08:59 Dose: 100 mls/hr Infusion: 06/21/16 08:44 Dose: 0 mls/hr Admin: 06/20/16 20:12 Dose: 100 mls/hr Infusion: 06/20/16 15:22 Dose: 0 mls/hr Admin: 06/20/16 10:01 Dose: Not Given Admin: 06/20/16 05:22 Dose: 100 mls/hr Infusion: 06/20/16 05:21 Dose: 0 mls/hr Admin: 06/20/16 00:02 Dose: Not Given Admin: 06/19/16 15:48 Dose: 100 mls/hr Admin: 06/19/16 14:04 Dose: Not Given Metronidazole (Flagyl) 500 mg in 100 mls @ 100 mls/hr IV Q6 [facility] Last Admin: 06/22/16 12:20 Dose: 100 mls/hr Infusion: 06/22/16 07:04 Dose: 100 mls/hr Admin: 06/22/16 06:04 Dose: 100 mls/hr Infusion: 06/22/16 00:55 Dose: 0 mls/hr Admin: 06/21/16 23:55 Dose: 100 mls/hr Infusion: 06/21/16 19:00 Dose: 0 mls/hr Admin: 06/21/16 18:00 Dose: 100 mls/hr Infusion: 06/21/16 11:56 Dose: 0 mls/hr Admin: 06/21/16 10:05 Dose: 100 mls/hr Infusion: 06/21/16 06:50 Dose: 100 mls/hr Admin: 06/21/16 05:50 Dose: 100 mls/hr Infusion: 06/21/16 01:07 Dose: 0 mls/hr Admin: 06/21/16 00:07 Dose: 100 mls/hr Infusion: 06/20/16 18:38 Dose: 0 mls/hr Admin: 06/20/16 17:38 Dose: 100 mls/hr Infusion: 06/20/16 13:00 Dose: 0 mls/hr Admin: 06/20/16 11:45 Dose: 100 mls/hr Infusion: 06/20/16 06:25 Dose: 0 mls/hr Admin: 06/20/16 05:23 Dose: 100 mls/hr Infusion: 06/20/16 00:53 Dose: 100 mls/hr Admin: 06/19/16 23:53 Dose: 100 mls/hr Infusion: 06/19/16 19:02 Dose: 0 mls/hr Admin: 06/19/16 18:05 Dose: 100 mls/hr [facility] Admin: 06/22/16 07:47 Dose: 150 mcg Admin: 06/21/16 08:02 Dose: 150 mcg Admin: 06/20/16 08:08 Dose: 150 mcg Liothyronine S[facility] ([facility]omel) [facility] Last Admin: 06/22/16 07:47 Dose: 50 mcg Admin: 06/21/16 08:02 Dose: 50 mcg Admin: 06/20/16 08:08 Dose: 50 mcg Magnesium Oxide (Magnesium Oxide) 400 mg PO DAILY [facility] Last Admin: 06/22/16 09:38 Dose: 400 mg Admin: 06/21/16 10:04 Dose: 400 mg Admin: 06/20/16 10:00 Dose: 400 mg Meloxicam (Mobic) 15 mg PO DAILY [facility] Last Admin: 06/22/16 09:38 Dose: 15 mg Admin: 06/21/16 10:04 Dose: 15 mg Admin: 06/20/16 10:01 Dose: 15 mg Montelukast Sodium (Singular) 10 mg PO QPM [facility] Last Admin: 06/21/16 21:04 Dose: 10 mg Admin: 06/20/16 21:21 Dose: 10 mg Admin: 06/19/16 21:04 Dose: 10 mg Morphine Sulfate (Ms Contin) 180 mg PO BID [facility] Last Admin: 06/22/16 09:39 Dose: 180 mg Admin: 06/21/16 21:05 Dose: 180 mg Admin: 06/21/16 10:04 Dose: 180 mg Admin: 06/20/16 21:21 Dose: 180 mg Admin: 06/20/16 10:00 Dose: 180 mg Oxycodone/Acetaminophen (Percocet 10-325mg) 1 tab PO Q6HP PRN PRN Reason: Pain Last Admin: 06/22/16 11:08 Dose: 1 tab Admin: 06/22/16 04:45 Dose: 1 tab Admin: 06/21/16 14:38 Dose: 1 tab Admin: 06/21/16 07:28 Dose: 1 tab Admin: 06/21/16 01:36 Dose: 1 tab Admin: 06/20/16 19:40 Dose: 1 tab Admin: 06/20/16 13:25 Dose: 1 tab Admin: 06/20/16 05:23 Dose: 1 tab Admin: 06/19/16 23:53 Dose: 1 tab Admin: 06/19/16 18:11 Dose: 1 tab Pantoprazole Sodium (Protonix) 40 mg IV QAMAC [facility] Last Admin: 06/22/16 07:47 Dose: 40 mg Admin: 06/21/16 08:01 Dose: 40 mg Admin: 06/20/16 08:08 Dose: 40 mg Estradiol/Norethindrone Acet [ Lopreeza 0.5 Mg-0.1 Mg] Tablet 1 dose PO DAILY [facility] Last Admin: 06/22/16 09:38 Dose: 1 dose Admin: 06/21/16 10:13 Dose: 1 dose Admin: 06/20/16 13:24 Dose: 1 dose Admin: 06/20/16 10:01 Dose: Not Given Fluticasone/Vilanterol [Breo Ellipta 200-25 Mcg] Inhaler 1 dose INH DAILY [facility] Last Admin: 06/22/16 09:38 Dose: 1 dose Admin: 06/21/16 10:14 Dose: 1 dose Admin: 06/20/16 13:25 Dose: 1 dose Admin: 06/20/16 10:01 Dose: Not Given Polyethylene Glycol (Miralax) 17 gm PO HS [facility] Last Admin: 06/21/16 21:05 Dose: Not Given Admin: 06/20/16 20:08 Dose: Not Given Admin: 06/19/16 21:04 Dose: 17 gm Promethazine HCl (Phenergan) 12.5 mg IV Q4HP PRN PRN Reason: Nausea And Vomiting Last Admin: 06/22/16 09:35 Dose: 12.5 mg Admin: 06/22/16 04:45 Dose: 12.5 mg Admin: 06/21/16 08:51 Dose: 12.5 mg Admin: 06/20/16 22:47 Dose: 12.5 mg Admin: 06/20/16 18:06 Dose: 12.5 mg Admin: 06/20/16 13:11 Dose: 12.5 mg Sertraline HCl (Zoloft) 100 mg PO HS [facility] Last Admin: 06/21/16 21:04 Dose: 100 mg Admin: 06/20/16 21:21 Dose: 100 mg Admin: 06/19/16 21:04 Dose: 100 mg Sodium Chloride (Saline Flush) 10 ml IV Q8 [facility] Last Admin: 06/22/16 06:04 Dose: Not Given Admin: 06/21/16 21:20 Dose: Not Given Admin: 06/21/16 15:18 Dose: Not Given Admin: 06/21/16 05:52 Dose: Not Given Admin: 06/20/16 21:27 Dose: Not Given Admin: 06/20/16 13:21 Dose: Not Given Admin: 06/20/16 06:40 Dose: 10 ml Admin: 06/19/16 21:04 Dose: 10 ml Vancomycin HCl (Vancomycin Oral Pushpa) 250 mg PO Q6 [facility] Last Admin: 06/22/16 12:20 Dose: 2.5 ml Admin: 06/22/16 06:05 Dose: 2.5 ml Admin: 06/21/16 23:55 Dose: 2.5 ml Admin: 06/21/16 18:01 Dose: 2.5 ml Admin: 06/21/16 12:06 Dose: 2.5 ml Admin: 06/21/16 05:50 Dose: 2.5 ml Admin: 06/21/16 00:08 Dose: 2.5 ml Admin: 06/20/16 17:38 Dose: 2.5 ml Admin: 06/20/16 13:26 Dose: 2.5 ml Zolpidem Tartrate (Ambien) 5 mg PO HSP PRN PRN Reason: Insomnia Last Admin: 06/21/16 22:10 Dose: 5 mg Shift Summary 06/21/16 04:00 Shift Summary by Rosalba Ricardo Alert and oriented. Wearing 2L Oxymask. Febrile tonight, fever no higher than 100.0. Medicated for pain with scheduled MS Contin and prn Percocet q6h. Hx of chronic pain and acute right abdomen/back pain. Up with SBA to commode r/t urgency. Wears attends for occ incontinence. Hasn't really had many stools, a lot of smears and quarter size drops but no substantial amounts. Complained of nausea and medicated with Phenergan once. Uses call light for needs. Initialized on 06/21/16 04:00 - END OF NOTE
[2016-06-22] MEDS ORDERED: POTASSIUM CHLORIDE 20 MEQ TABLET PO SCH (17:30)
== END 2016-06-22 14:40 | disposition home or self-care (01) | DRG 373 ==
LOC: ED 10:56 → MEDSUR 14:20
PROVIDERS: ADMIT Family Medicine Adult Medicine; ATTEND Family Medicine Adult Medicine

== ENCOUNTER 2016-07-05 06:05 | Inpatient (IN) ==
[2016-07-05] MEDS ORDERED: IOPAMIDOL 100 ML BOTTLE IV ONE (06:06)
[2016-07-05] MEDS ORDERED: 0.9 % SODIUM CHLORIDE 1,000 ML IV ONE ×2 (06:27→09:34)
[2016-07-05] MEDS ORDERED: PROMETHAZINE 25 MG/ML VIAL IV ONE (06:27)
[2016-07-05] MEDS ORDERED: HYDROmorphone 2 MG/ML SYRINGE IV SCH (06:30)
--- NOTE | 2016-07-05 06:30 | Emergency Department Note ---
General Adult HPI - General Chief complaint: Extremity Injury, Lower Stated complaint: Right hip pain, positive c-diff. Time Seen by Provider: 07/05/16 06:11 Source: patient, EMS Mode of arrival: ambulatory Limitations: no limitations - History of Present Illness HPI Narrative: Patient presents by ambulance from home, 2 concerns. Accelerating diarrhea with nausea, fecal incontinence on the way to the bathroom this morning. Comes to the setting of C. difficile treatment after rectal prolapse surgery. Was treated with vancomycin Hospital, than discharged on Flagyl which she been able tolerate. Sniffing and nausea accompanying waves of cramping and lower abdominal pain. Additionally, sharp right low back pain. States feels generally weak with the pain, states "they told me it was my sacroiliac". No difficulty bearing weight , no significant change, no fall or new trauma. Daughter currently living with her to help out, disabled. Feels that she is not managing well at home. No fevers or chills - Related Data Home Medications Medication Instructions Recorded Confirmed magnesium oxide 400 mg capsule 300 mg PO .qd cap 02/21/15 06/19/16 potassium gluconate 595 mg (99 mg) 99 mg PO BID tab 02/21/15 06/19/16 tablet fluticasone 200 mcg-vilanterol 25 1 each INHALATION .qdaily each 09/08/1506/19 mcg/dose powder for inhalation levothyroxine 150 mcg capsule 150 mcg PO QDAY 05/23/16 06/19/16 Meloxicam 15 mg PO BID 06/19/16 06/19/16 Polyethylene Glycol 3350 [Miralax] 17 gm PO HS 06/19/16 06/19/16 Sertraline [Zoloft] 100 mg PO HS 06/19/16 06/19/16 Previous Rx's Medication Instructions Recorded fluticasone 50 mcg/actuation nasal 1 spray INTRANASAL BID #16 g 03/08/16 spray,suspension [id number] 1 tab-cap PO Q4H PRN #50 tab 04/09/16 50 mg-325 mg-40 mg tablet omeprazole 20 mg capsule,delayed 20 mg PO BID #180 cap 04/18/16 release montelukast 10 mg tablet 10 mg PO QPM #90 tab 05/17/16 ondansetron 8 mg disintegrating 8 mg PO TID PRN #90 tab 05/21/16 tablet liothyronine 25 mcg tablet 50 mcg PO QDAY #180 tab 06/17/16 metroNIDAZOLE [Flagyl] 500 mg PO Q6 #60 tablet 06/22/16 estradiol-norethindrone acet 0.5 1 tab PO QDAY #90 tab 07/01/16 mg-0.1 mg tablet morphine ER 200 mg tablet,extended 200 mg PO BID #60 tab 07/01/16 release Allergies Allergy/AdvReac Type Severity Reaction Status Date / Time clindamycin AdvReac Mild Diarrhea Verified 06/19/16 14:49 Review of Systems All systems ED: reviewed and negative except as stated. Constitutional: Reports: weakness. Denies: fever, chills, weight change Cardiovascular: Denies: chest pain, palpitations Respiratory: Denies: cough, dyspnea Gastrointestinal: Reports: abdominal pain, nausea, diarrhea. Denies: vomiting Past Medical History - Past Medical History Attestation: Yes: The following information was validated with the patient. Medical history: Reports: arthritis, COPD, GERD, thyroid disease Surgical history ED: Reports: hysterectomy, orthopedic, other, other Psychiatric history: Reports: no psych history Family history: Reports: non-contributory - Social History smoking status: Former smoker Physical Exam - General Limitations: no limitations General appearance: alert, anxious - Head Head exam: atraumatic - Eye Eye exam: Present: normal appearance - ENT ENT exam: normal exam, mucous membranes moist - Neck Neck exam: Present: normal inspection. Absent: lymphadenopathy - Chest Chest inspection: Present: normal inspection - Respiratory Respiratory exam: Present: normal lung sounds bilaterally. Absent: respiratory distress - Cardiovascular Cardiovascular exam: Present: regular rate, normal rhythm - Abdominal Exam Abdominal exam: Present: soft, tenderness, hyperactive bowel sounds. Absent: guarding Abdominal tenderness: Present: diffuse, mild - Extremities Exam Extremities exam: Present: normal inspection, normal capillary refill, other ( right hip flexion rotation without pain; ). Absent: pedal edema - Neurological Exam Neurological exam: Present: alert, oriented X3 - Psychiatric Psychiatric exam: Present: anxious - Skin Skin exam: Present: warm, diaphoresis Course - Reevaluation(s) Reevaluation #1: ommunicated to the patient abnormal labs including hyponatremia; CT ordered to document extent of colitis Time: 08:28 Reevaluation #2: additional studies pending, including stool toxin assay, CT abd. IVF running. Patient to be signed out to Dr Taylor. Anticipate admission for hyponatremia. Time: 08:49 Vital Signs Pulse Rate 101 H 07/05/16 06:06 Respiratory Rate 18 07/05/16 06:06 Blood Pressure 149/81 07/05/16 06:06 Pulse Oximetry (%) 95 07/05/16 06:06 Pulse Rate 85 07/05/16 07:46 Respiratory Rate 18 07/05/16 06:06 Blood Pressure 115/62 07/05/16 07:46 Pulse Oximetry (%) 99 07/05/16 07:46 Medical Decision Making - Medical Records Medical records reviewed: Yes I reviewed the patient's medical records. - Lab Data Lab results reviewed: Yes I reviewed the patient's lab results. Result diagrams: 07/05/16 06:50 07/05/16 06:50 Lab Results 07/05/16 07/05/16 07/05/16 Range/Units 06:50 06:50 06:50 WBC 11.5 H (4.5-11.0) K/mcL RBC 4.09 (4.00-5.20) M/mcL Hgb 11.6 L (12.0-15.0) g/dL Hct 35.6 L (36.0-48.0) % POC Hct 37.0 (36.0-48.0) % MCV 86.9 (80.0-100.0) fL MCH 28.3 (26.0-34.0) pg MCHC 32.6 (31.0-36.0) g/dL RDW 16.0 H (11.5-14.5) % Plt Count 514 H (140-440) K/mcL MPV 6.8 L (7.4-10.4) fL Gran % 81.0 H (38.0-78.0) % Lymph % (Auto) 7.6 L (15.5-49.0) % Tripp % (Auto) 10.2 H (1.0-9.0) % Eos % (Auto) 1.0 (0.0-7.0) % Baso % (Auto) 0.2 (0.0-2.0) % Gran # 9.3 H (1.8-8.0) K/mcL Lymph # 0.9 L (1.5-4.8) K/mcL Tripp # 1.2 H (0.1-0.9) K/mcL Eos # 0.1 (0.0-0.7) K/mcL Baso # 0 (0.0-0.3) K/mcL POC Sodium 124 L (133-145) mmol/L Sodium 122 L (133-145) mmol/L POC Potassium 4.2 (3.3-5.1) mmol/L Potassium 4.5 (3.3-5.1) mmol/L POC Chloride 89 L (96-108) mmol/L Chloride 85 L (96-108) mmol/L Carbon Dioxide 23 (22-30) mmol/L POC Total CO2 22 (22-30) mmol/L Anion Gap 14.0 (8-16) POC BUN 11 (8-23) mg/dl BUN 10 (8-23) mg/dl Creatinine 0.5 L (0.6-1.1) mg/dl POC Creatinine 0.4 L (0.6-1.1) mg/dl GFR Calculation 99 Glucose 124 H (70-105) mg/dL POC Glucose 124 H (70-105) mg/dL Calcium 8.8 (8.6-10.4) mg/dl POC WB Ioniz Calcium 1.07 L (1.16-1.32) mmol/L Magnesium 1.7 (1.6-2.5) mg/dL Total Bilirubin 0.5 (0.0-1.0) mg/dL AST 13 (0-37) U/l ALT 10 (0-40) U/l Alkaline Phosphatase 67 (39-117) U/L C-Reactive Protein 5.6 H (0.0-0.8) mg/dl Total Protein 7.2 (5.9-8.4) gm/dL Albumin 3.5 (3.2-5.2) gm/dL Globulin 3.7 (2.2-3.7) gm/dL Albumin/Globulin Ratio 0.9 L (1.0-2.3) Disposition Clinical Impression: Hyponatremia syndrome, Recurrent colitis due to Clostridium difficile, Ankle sprain and strain Disposition: Xfer As Inpt ([facility] Condition: Fair Referrals: Stephen Munroe MD [Primary Care Provider] -
[2016-07-05 07:28] LABS: Basophils # (Auto) 0 K/mcL (0.0-0.3); Basophils % (Auto) 0.2 % (0.0-2.0); Eosinophils # (Auto) 0.1 K/mcL (0.0-0.7); Lymphocytes # (Auto) 0.9 K/mcL (1.5-4.8); Lymphocytes % (Auto) 7.6 % (15.5-49.0); Mean Cell Volume 86.9 fL (80.0-100.0); Mean Corpuscular HGB Conc 32.6 g/dL (31.0-36.0); Mean Corpuscular Hemoglobin 28.3 pg (26.0-34.0); Monocytes # (Auto) 1.2 K/mcL (0.1-0.9); Monocytes % (Auto) 10.2 % (1.0-9.0); Platelet Count 514 K/mcL (140-440); RBC 4.09 M/mcL (4.00-5.20)
[2016-07-05 07:42] LABS: Magnesium 1.7 mg/dL (1.6-2.5)
[2016-07-05 07:54] LABS: ALT/SGPT 10 U/l (0-40); Albumin 3.5 gm/dL (3.2-5.2); Albumin/Globulin Ratio 0.9 (1.0-2.3); Alkaline Phosphatase 67 U/L (39-117); Blood Urea Nitrogen 10 mg/dl (8-23); C-Reactive Protein 5.6 mg/dl (0.0-0.8)
--- NOTE | 2016-07-05 09:28 | Cat Scan Report ---
CLINICAL INFORMATION: Elevated white blood cell count nausea and vomiting. History of rectal prolapse surgery COMPARISON: Postoperative abdomen and pelvic CT over two weeks prior - 06/18/2016 TECHNIQUE: Following enteric contrast, 80 cc of Isovue-300 were injected intravenously, and 60 seconds later, 2.5 mm helical slices were obtained from the mid heart through the subtrochanteric regions. Following reconstruction, 2.5 mm sagittal, coronal and axial reformatted images were processed and reviewed at bone, lung and soft tissue windows. Five minutes later, 5 mm helical slices were obtained from the mid heart through the kidneys and viewed at soft tissue windows. FINDINGS: Lung bases show no abnormality - no effusion. The visualized heart is grossly normal Images should the abdomen show minimal fatty change within the liver which is stable. There are no focal hepatic lesions. Gallbladder is unremarkable. Moderate dilatation of the left hepatic, common hepatic and common bile duct are again noted - common bile duct caliber 11 mm. This demonstrates long-term stability. There is no stone, mass or other cause identified for distal biliary obstruction. The pancreas, both kidneys, adrenal glands, and spleen are normal. The aorta is normal in contour and caliber with scattered calcific and fibrofatty plaque. Celiac, SMA, MARCELLA, renal and iliac arteries are widely patent. Images should the pelvis show urinary bladder is unremarkable. Hysterectomy/oophorectomy changes are noted. Multiple surgical clips present in the perirectal region following rectal prolapse surgery. Two pelvic fluid collections have decreased in size since the study two weeks ago. The first, in the right lateral perirectal region, has decreased from 5.2 cm to 4.1 cm. The second collection, located anteriorly in the right false pelvis has decreased from 8 cm to 6 cm. Both fluid and collections have thin wall capsules. Mild ileus pattern persists: The stomach small and large bowel show mild symmetric dilatation - no evidence of bowel obstruction. There is no adenopathy or free air. Bone windows show degenerative change IMPRESSION: Pelvic fluid collections: 4 cm in the right perirectal region and 6 cm in the right false pelvis. Both have decreased modestly since the prior postoperative CT two weeks prior. This could represent postoperative seromas or resolving abscesses. Mild ileus pattern Moderate dilatation of intrahepatic and common bile ducts which demonstrates long-term stability. If the patient has obstructive LFT pattern or elevated bilirubin, consider referral for ERCP Interpreted and Authenticated by: Brendan Bear 07/05/16
[2016-07-05] MEDS: HYDROmorphone 2 MG/ML SYRINGE IV PRN ×3 (09:42→16:32)
[2016-07-05] MEDS ORDERED: VANCOMYCIN 250 MG CAPSULE PO SCH (13:00)
--- NOTE | 2016-07-05 13:01 | Emergency Department Note ---
General Adult HPI - General Chief complaint: Extremity Injury, Lower Stated complaint: Right hip pain, positive c-diff. Time Seen by Provider: 07/05/16 06:11 Source: patient, EMS Mode of arrival: ambulatory Limitations: no limitations - Related Data Home Medications Medication Instructions Recorded Confirmed magnesium oxide 400 mg capsule 300 mg PO .qd cap 02/21/15 06/19/16 potassium gluconate 595 mg (99 mg) 99 mg PO BID tab 02/21/15 06/19/16 tablet fluticasone 200 mcg-vilanterol 25 1 each INHALATION .qdaily each 09/08/1506/19 mcg/dose powder for inhalation levothyroxine 150 mcg capsule 150 mcg PO QDAY 05/23/16 06/19/16 Meloxicam 15 mg PO BID 06/19/16 06/19/16 Polyethylene Glycol 3350 [Miralax] 17 gm PO HS 06/19/16 06/19/16 Sertraline [Zoloft] 100 mg PO HS 06/19/16 06/19/16 Previous Rx's Medication Instructions Recorded fluticasone 50 mcg/actuation nasal 1 spray INTRANASAL BID #16 g 03/08/16 spray,suspension qfkyzbyhfz-bwpzjaeqkzfzs-nljjzvgw 1 tab-cap PO Q4H PRN #50 tab 04/09/16 50 mg-325 mg-40 mg tablet omeprazole 20 mg capsule,delayed 20 mg PO BID #180 cap 04/18/16 release montelukast 10 mg tablet 10 mg PO QPM #90 tab 05/17/16 ondansetron 8 mg disintegrating 8 mg PO TID PRN #90 tab 05/21/16 tablet liothyronine 25 mcg tablet 50 mcg PO QDAY #180 tab 06/17/16 metroNIDAZOLE [Flagyl] 500 mg PO Q6 #60 tablet 06/22/16 estradiol-norethindrone acet 0.5 1 tab PO QDAY #90 tab 07/01/16 mg-0.1 mg tablet morphine ER 200 mg tablet,extended 200 mg PO BID #60 tab 07/01/16 release Allergies Allergy/AdvReac Type Severity Reaction Status Date / Time clindamycin AdvReac Mild Diarrhea Verified 06/19/16 14:49 Review of Systems Constitutional: Reports: weakness. Denies: fever, chills, weight change Cardiovascular: Denies: chest pain, palpitations Respiratory: Denies: cough, dyspnea Gastrointestinal: Reports: abdominal pain, nausea, diarrhea. Denies: vomiting Past Medical History - Past Medical History Medical history: Reports: arthritis, COPD, GERD, thyroid disease Surgical history ED: Reports: hysterectomy, orthopedic, other, other Psychiatric history: Reports: no psych history Physical Exam - General Limitations: no limitations General appearance: alert, anxious Course Vital Signs Pulse Rate 101 H 07/05/16 06:06 Respiratory Rate 18 07/05/16 06:06 Blood Pressure 149/81 07/05/16 06:06 Pulse Oximetry (%) 95 07/05/16 06:06 Pulse Rate 103 H 07/05/16 12:09 Respiratory Rate 18 07/05/16 06:06 Blood Pressure 144/81 07/05/16 11:39 Pulse Oximetry (%) 97 07/05/16 12:09 Medical Decision Making - MDM Narrative Medical decision making narrative: C. difficile was negative this time. She is very weak and dehydrated low in sodium and chloride. Discussed the case with Dr. Caballero and she will be admitted inpatient. - Lab Data Lab results reviewed: Yes I reviewed the patient's lab results. Result diagrams: 07/05/16 06:50 07/05/16 06:50 Lab Results 07/05/16 07/05/16 07/05/16 Range/Units 06:50 06:50 06:50 WBC 11.5 H (4.5-11.0) K/mcL RBC 4.09 (4.00-5.20) M/mcL Hgb 11.6 L (12.0-15.0) g/dL Hct 35.6 L (36.0-48.0) % POC Hct 37.0 (36.0-48.0) % MCV 86.9 (80.0-100.0) fL MCH 28.3 (26.0-34.0) pg MCHC 32.6 (31.0-36.0) g/dL RDW 16.0 H (11.5-14.5) % Plt Count 514 H (140-440) K/mcL MPV 6.8 L (7.4-10.4) fL Gran % 81.0 H (38.0-78.0) % Lymph % (Auto) 7.6 L (15.5-49.0) % [place] % (Auto) 10.2 H (1.0-9.0) % Eos % (Auto) 1.0 (0.0-7.0) % Baso % (Auto) 0.2 (0.0-2.0) % Gran # 9.3 H (1.8-8.0) K/mcL Lymph # 0.9 L (1.5-4.8) K/mcL [place] # 1.2 H (0.1-0.9) K/mcL Eos # 0.1 (0.0-0.7) K/mcL Baso # 0 (0.0-0.3) K/mcL POC Sodium 124 L (133-145) mmol/L Sodium 122 L (133-145) mmol/L POC Potassium 4.2 (3.3-5.1) mmol/L Potassium 4.5 (3.3-5.1) mmol/L POC Chloride 89 L (96-108) mmol/L Chloride 85 L (96-108) mmol/L Carbon Dioxide 23 (22-30) mmol/L POC Total CO2 22 (22-30) mmol/L Anion Gap 14.0 (8-16) POC BUN 11 (8-23) mg/dl BUN 10 (8-23) mg/dl Creatinine 0.5 L (0.6-1.1) mg/dl POC Creatinine 0.4 L (0.6-1.1) mg/dl GFR Calculation 99 Glucose 124 H (70-105) mg/dL POC Glucose 124 H (70-105) mg/dL Calcium 8.8 (8.6-10.4) mg/dl POC WB Ioniz Calcium 1.07 L (1.16-1.32) mmol/L Magnesium 1.7 (1.6-2.5) mg/dL Total Bilirubin 0.5 (0.0-1.0) mg/dL AST 13 (0-37) U/l ALT 10 (0-40) U/l Alkaline Phosphatase 67 (39-117) U/L C-Reactive Protein 5.6 H (0.0-0.8) mg/dl Total Protein 7.2 (5.9-8.4) gm/dL Albumin 3.5 (3.2-5.2) gm/dL Globulin 3.7 (2.2-3.7) gm/dL Albumin/Globulin Ratio 0.9 L (1.0-2.3) Disposition Clinical Impression: Hyponatremia syndrome, Recurrent colitis due to Clostridium difficile, Ankle sprain and strain Disposition: Xfer As Inpt ([facility]) Condition: Fair Referrals: Stephen Munroe MD [Primary Care Provider] -
[2016-07-05] MEDS ORDERED: MAGNESIUM SULFATE 2 GM/50 ML BAG IV PRN (15:02)
[2016-07-05] MEDS ORDERED: POTASSIUM CHLORIDE 20 MEQ PACKET PO PRN (15:02)
[2016-07-05] MEDS ORDERED: BUTALB/ACETAMINOPHEN/CAFFEINE 1 TABLET PO PRN (15:02)
[2016-07-05] MEDS ORDERED: ONDANSETRON ODT 4 MG TABLET SL PRN (15:09)
[2016-07-05] MEDS: 0.9 % SODIUM CHLORIDE 10 ML SYRINGE IV SCH ×2 (16:31→23:42)
[2016-07-05] MEDS: 0.9 % SODIUM CHLORIDE 1,000 ML IV SCH (16:31)
[2016-07-05 16:43] LABS: Appearance,Urine CLEAR; Bilirubin,Urine NEG (NEG); Color,Urine STRAW; Glucose,Urine (UA) NEGATIVE (NEG); Leukocyte Esterase,Urine NEG /uL (NEG); Nitrate,Urine NEG (NEG); Protein,Urine NEG (NEG); Urine Blood NEG mg/dL (<0.03); Urobilinogen,Urine NEG (NEG)
[2016-07-05] MEDS: VANCOMYCIN ORAL SOL 1,000 MG/10 ML BOTTLE PO SCH ×2 (16:48→21:15)
[2016-07-05 16:52] LABS: Osmolality,Urine 152 mOsm/kg (80-1000)
[2016-07-05] MEDS: PANTOPRAZOLE 40 MG TABLET PO SCH (16:52)
--- NOTE | 2016-07-05 17:00 | History and Physical Report ---
DATE OF ADMISSION: 07/05/2016 REASON FOR ADMISSION: Diarrhea, weakness. HISTORY OF CHIEF COMPLAINT: The patient is a 70-year-old who comes to [facility] Room with persistent diarrhea along with significant incontinence that has progressed over the last few days. The patient has had recently diagnosed C. diff and was on Flagyl and completed a 14-day course. Initial workup in the ER was unremarkable for negative C. diff but positive for sodium of 122. In light of significant hyponatremia with weakness, Hospitalist Service was consulted. Significant to presenting history, the patient recently had a rectopexy for rectal prolapse performed by Dr. Santos and was discharged on 06/19. CT scan in the ER revealed a 4 cm pelvic seroma versus abscess. She also complains of significant right lower back pain and was recently diagnosed as sacroiliitis. She he is scheduled at pain clinic for SI joint injection. Other than that, she denies fever, headache or photophobia. She does endorse to fatigue, lethargic, malaise, but denies dysuria, urinary incontinence, joint pain, swelling or rash. She denies bleeding, chest palpitation and shortness of breath. REVIEW OF SYSTEMS: Ten-point review of system was performed and negative except the ones discussed above. PAST MEDICAL HISTORY: 1. Hypothyroidism. 2. Anxiety disorder. 3. Chronic pain on morphine. CURRENT MEDICATIONS: 1. Nouqfushde-bcpemljduvzhs-beqtihwf one tab q.4 p.r.n. 2. Morphine 200 mg extended release b.i.d. 3. Flagyl 500 mg p.o. daily. 4. Meloxicam 15 mg b.i.d. 5. MiraLax as needed. 6. Sertraline 100 mg. ALLERGIES: KNOWN TO CLINDAMYCIN. SOCIAL HISTORY: The patient lives in the [place]. Her daughter who lives nearby is currently assisting her after recent hospitalization. She is a former smoker. Denies any recent alcoholism or substance abuse. FAMILY HISTORY: Significant for prostate cancer in father. Lung cancer in mother. PHYSICAL EXAMINATION: GENERAL: The patient is alert and oriented. She denies any active distress except for weakness, fatigue, lethargy. BMI 20, height 5 feet 3 inches. VITAL SIGNS: Blood pressure 148/81, respiratory rate 16, temperature 99.7, pulse 86, sats 100% on room air. HEENT: Pupils symmetric. Oral cavity is dry. No ear or nose discharge. Head is normocephalic. NECK: No lymphadenopathy. HEART: S1, S2, regular rate and rhythm. No murmur. CHEST: Clear to auscultation. ABDOMEN: Soft. Sluggish bowel sounds. Minimally tender on deep palpation. EXTREMITIES: No cyanosis, clubbing, joint swelling or erythema. SKIN: No suspicious lesions. PSYCHIATRIC: Alert and cooperative, mild anxiety but no agitation. NEURO: Nonfocal, moving all four extremities. LABS AND IMAGING: White count 11.5, hemoglobin 11.6, platelets 514. Sodium 122, potassium 4.2, creatinine 0.4, and BUN 10. LFTs unremarkable. Serum osmolality 260. Urine osmolality pending. Urine sodium pending. CT abdomen and pelvis: Pelvic fluid collection 4 cm and 6 cm right pelvis, likely a postoperative seroma or resolving abscess. Moderate dilatation intrahepatic common bile duct. ASSESSMENT AND PLAN: A 70-year-old admitted with severe symptomatic hyponatremia along with diarrhea. 1. Symptomatic hyponatremia. Likely secondary to solute loss from recurrent diarrhea. Continue crystalloids and q.4 sodium checks. Await urine and serum osmolality along with sodium levels. 2. Diarrhea. Recheck C. diff. Continue oral vancomycin. 3. Recent rectal prolapse surgery with 4 cm seroma/abscess on CT. Consult Surgery in light of CT findings. 5. Prior medical issues, including: a. History of chronic pain/sacroiliitis. Continue prior home medications, including extended release morphine. b. Anxiety disorder. Hold sertraline in light of ADH agonism. c. Hypothyroidism. Continue thyroxine. PLAN FOR TODAY: 1. Admit as inpatient. 2. Q.4 sodium checks. 3. Urine and serum osmolality along urine sodium. 4. Surgery consultation. 5. Oral vancomycin for empiric coverage of C. diff. 6. Repeat C. diff test. AA:neo Job ID: [id number] Doc ID: [id number] John Munroe MD [facility]
[2016-07-05] MEDS: DOCUSATE SODIUM 100 MG CAPSULE PO SCH (21:04)
[2016-07-05] MEDS: FLUTICASONE PROPIONATE SPRAY.NAS NS SCH (21:05)
[2016-07-05] MEDS: SENNOSIDES/DOCUSATE SODIUM 1 TAB TABLET PO SCH (21:05)
[2016-07-05] MEDS: morphine 30 MG TAB.SR.12H PO SCH (21:06)
[2016-07-05] MEDS: HEPARIN 5,000 UNIT/ML VIAL SQ SCH (21:08)
[2016-07-05] MEDS: MONTELUKAST 10 MG TABLET PO SCH (21:08)
[2016-07-05] MEDS: POTASSIUM GLUCONATE 99 MG PO SCH (22:30)
[2016-07-05] MEDS: ACETAMINOPHEN 325 MG TABLET PO PRN (23:56)
[2016-07-06 00:57] LABS: Free T4 (Free Thyroxine) 0.96 ng/dl (0.7-1.7)
[2016-07-06] MEDS: 0.9 % SODIUM CHLORIDE 10 ML SYRINGE IV SCH ×3 (05:17→23:26)
[2016-07-06 06:13] LABS: Mean Cell Volume 86.3 fL (80.0-100.0); Mean Corpuscular HGB Conc 32.7 g/dL (31.0-36.0); Mean Corpuscular Hemoglobin 28.2 pg (26.0-34.0); Platelet Count 405 K/mcL (140-440); RBC 3.32 M/mcL (4.00-5.20); Red Cell Distribution Width 16.3 % (11.5-14.5)
[2016-07-06 06:55] LABS: ALT/SGPT 8 U/l (0-40); Albumin 2.9 gm/dL (3.2-5.2); Albumin/Globulin Ratio 1.3 (1.0-2.3); Alkaline Phosphatase 54 U/L (39-117); Bilirubin,Direct < 0.2 mg/dL (0.0-0.3); Blood Urea Nitrogen 7 mg/dl (8-23); Gamma Glutamyl Transpeptidase 33 U/L (5-36); Magnesium 1.7 mg/dL (1.6-2.5); Phosphorous 3.6 mg/dL (2.7-4.5); Uric Acid 3.1 mg/dL (2.5-8.0)
[2016-07-06 07:53] LABS: Anisocytosis 1+ (NONE SEEN); Band Neutrophils % 2 % (0-10); Eosinophils % (Manual) 4 % (0-7); Lymphocytes % 11 % (15-49); Monocytes % (Manual) 13 % (1-9); Platelet Estimate NORMAL (NORMAL); RBC Morphology ABNORMAL (NORMAL); Segmented Neutrophils % 70 % (38-78)
[2016-07-06] MEDS: PANTOPRAZOLE 40 MG TABLET PO SCH ×2 (08:17→17:38)
[2016-07-06] MEDS: LEVOTHYROXINE 150 MCG TABLET PO SCH (08:17)
[2016-07-06] MEDS: ONDANSETRON 4 MG/2 ML VIAL IV PRN (08:29)
[2016-07-06] MEDS: morphine 30 MG TAB.SR.12H PO SCH ×2 (09:34→20:34)
--- NOTE | 2016-07-06 10:03 | Internal Med Progress Note ---
Medical - PN: Subj Patient information: Note initiated : 07/06/16 at 10:00 am Service Date, if different from initiated Date: [] Patient: Amparo Briceno 70 y/o F admitted on 07/05/16 for Right Hip Pain, Positive C-Diff. Chief Complaint: [] Interval history: 07/05- patient very with severe symptomatic hyponatremia with sodium at 122 with weakness fatigue secondary to persistent diarrhea. Recent C. difficile status post 14 days of Flagyl treatment. Started on oral vancomycin. Initial C. difficile negative and EGD. Patient on every 4 sodium checks along with continued crystalloids replacement for solute loss and hypovolemic hyponatremia. urine osmolality appropriately low suggestive against SIADH. 07/06- continue crystalloids replacement. Sodium improved to 130/24 hours from 122. repeat C. difficile pending. No overnight fever chills. Patient more alert and lucid and improved fatigue. Tolerating diet. no other concerns expressed by nursing staff. no telemetry events. Continue physical therapy - Constitutional Vitals: Vital Signs Temp Pulse Resp BP Pulse Ox 97.5 F L 80 16 137/83 94 07/06/16 03:30 07/06/16 03:30 07/06/16 03:30 07/06/16 03:30 07/06/16 03:30 Period Temp Pulse Resp BP Sys/Robb Pulse Ox Last 24 Hr 97.5 F-110.5 F 80-101 16-20 118-149/71-83 93-100 Intake and Output 07/05/16 07/06/16 07/06/16 21:59 05:59 13:59 Intake Total 1480 / 1480 780 / 780 Output Total 200 / 200 450 / 450 Balance 1280 / 1280 330 / 330 Weight 117 lb Intake & Output: Intake & Output 07/05/16 07/06/16 07/06/16 21:59 05:59 13:59 Intake Total 1480 / 1480 780 / 780 Output Total 200 / 200 450 / 450 Balance 1280 / 1280 330 / 330 Weight 117 lb Intake: IV 1000 / 1000 Sodium Chloride 0.9% 1, 1000 / 1000 000 ml @ Wide Open IV BOLUS ONE Rx#:[id number] Oral 480 / 480 780 / 780 Output: Void Amount 200 / 200 450 / 450 Other: Meal Dinner Percent of Meal Consumed 75% Feeding Ability Independent # Voids 1 1 General appearance: cooperative, no acute distress Exam: light oriented nonlabored breathing o lymphedema no anxiety or distress Medical - PN: Obj Da - Labs CBC & Chem 7: 07/06/16 04:26 07/06/16 08:03 Labs: Abnormal Lab Results 07/06/16 07/06/16 07/06/16 08:03 04:26 04:26 RBC 3.32 L Hgb 9.4 L Hct 28.7 L RDW 16.3 H MPV 6.8 L Lymphocytes % 11 L Monocytes % (Manual) 13 H Anisocytosis 1+ A Sodium 130 L 130 L BUN 7 L Creatinine 0.5 L Calcium 8.0 L Total Protein 5.2 L Albumin 2.9 L TSH 07/05/16 07/05/16 21:07 19:55 RBC Hgb Hct RDW MPV Lymphocytes % Monocytes % (Manual) Anisocytosis Sodium 126 L BUN Creatinine Calcium Total Protein Albumin TSH 0.08 L Meds: Medications Acetaminophen (Tylenol) 650 mg PO Q4-6HP PRN PRN Reason: PAIN/FEVER > 101 Last Admin: 07/05/16 23:56 Dose: 650 mg Acetaminophen/Butalbital/Caffeine (Fioricet) 1 tab PO Q4HP PRN PRN Reason: pain Docusate Sodium (Colace) 100 mg PO BID [facility] Last Admin: 07/05/16 21:04 Dose: Not Given Fluticasone Propionate (Flonase) 1 spray NS BID [facility] Last Admin: 07/05/16 21:05 Dose: Not Given Heparin Sodium (Porcine) (Heparin) 5,000 unit SQ Q12 [facility] Last Admin: 07/05/16 21:08 Dose: 5,000 unit Hydromorphone HCl (Dilaudid) 0 mg IV Q4HP PRN PRN Reason: Pain Last Admin: 07/05/16 16:32 Dose: 0.5 mg Magnesium Sulfate (Magnesium Sulfate) 2 gm in 50 mls @ 50 mls/hr IV UD PRN PRN Reason: MG = or < 1.7 Sodium Chloride (Sodium Chloride 0.9%) 1,000 mls @ 50 mls/hr IV .Q20H [facility] Stop: 07/08/16 03:01 Last Admin: 07/05/16 16:31 Dose: 50 mls/hr Iron Carb/Multivit/[place]/Folic Acid (Multivitamin W/Minerals) 1 tab PO DAILY [facility] Levothyroxine Sodium (Synthroid) 150 mcg PO QAMAC [facility] Last Admin: 07/06/16 08:17 Dose: 150 mcg Liothyronine Sodium (Cytomel) 50 mcg PO DAILY [facility] Magnesium Oxide (Magnesium Oxide) 400 mg PO DAILY [facility] Montelukast Sodium (Singular) 10 mg PO QPM [facility] Last Admin: 07/05/16 21:08 Dose: 10 mg Morphine Sulfate (Ms Contin) 180 mg PO BID [facility] Last Admin: 07/06/16 09:34 Dose: 180 mg Ondansetron HCl (Zofran) 4 mg IV Q4-6HP PRN PRN Reason: Nausea And Vomiting Last Admin: 07/06/16 08:29 Dose: 4 mg Ondansetron HCl (Zofran Odt) 8 mg SL TIDP PRN PRN Reason: Nausea And Vomiting Pantoprazole Sodium (Protonix) 40 mg PO BIDAC [facility] Last Admin: 07/06/16 08:17 Dose: 40 mg Estradiol/Norethindrone Acet [ Lopreeza] 0.5/0.1 Mg Tab 1 dose PO QDAY [facility] Fluticasone/Vilanterol [Breo Ellipta] 200/25 Mcg Inhaler 1 dose INH DAILY [facility] Potassium Gluconate [Potassium] 99 Mg Tab 1 dose PO BID [facility] Last Admin: 07/05/16 22:30 Dose: Not Given Potassium Chloride (Klor-Con) 40 meq PO DAILYP PRN PRN Reason: K+ < 3.5 Senna/Docusate Sodium (Senna Plus Tablet) 1 tab PO HS [facility] Last Admin: 07/05/16 21:05 Dose: Not Given Sodium Chloride (Saline Flush) 10 ml IV Q8 [facility] Last Admin: 07/06/16 05:17 Dose: Not Given Vancomycin HCl (Vancomycin Oral Pushpa) 500 mg PO QID [facility] Last Admin: 07/05/16 21:15 Dose: 500 mg Medical - PN: A/P - Time Spent With Patient Total time spent is greater than 50% in coordination of care (as documented) at patient's floor/unit and/or counseling patient: 25 - 35 minutes (1) Hyponatremia with extracellular fluid depletion Status: Acute Assessment and plan: * Hypovolemic hyponatremia- secondary to solute loss from underlying the area. Clinically improving with solute replacement/crystalloids. Sodium up from 122- 130/24 hours. * Diarrhea-recent C. difficile status post 14 days Flagyl treatment. Repeat C. difficile negative. Continue oral vancomycin until second C. difficile negative. * Severe weakness and pathology from hyponatremia-clinically improving. Continue physical therapy * Hypothyroidism on thyroxine * Chronic pain on external release morphine * DVT prophylaxis on heparin Plan * continue solute replacement * recheck C. difficile * Continue oral vancomycin * pre-existing medical condition management as above * possible discharge in24-48 hours once clinically improved Current Visit: Yes Medical - PN: Qual - Stroke Symptom Onset Unknown: No - VTE Deep Vein Thrombosis/Pulmonary Embolism Present on Admission: No
[2016-07-06] MEDS: MULTIVIT,THER IRON,CA,FA & MIN 1 TABLET PO SCH (10:31)
[2016-07-06] MEDS: MAGNESIUM OXIDE 400 MG TABLET PO SCH (10:31)
[2016-07-06] MEDS: LIOTHYRONINE 5 MCG TABLET PO SCH (10:31)
[2016-07-06] MEDS: DOCUSATE SODIUM 100 MG CAPSULE PO SCH ×2 (10:32→20:43)
[2016-07-06] MEDS: HEPARIN 5,000 UNIT/ML VIAL SQ SCH ×2 (10:32→20:34)
[2016-07-06] MEDS: VANCOMYCIN ORAL SOL 1,000 MG/10 ML BOTTLE PO SCH ×3 (10:33→17:24)
[2016-07-06] MEDS: FLUTICASONE PROPIONATE SPRAY.NAS NS SCH ×2 (13:38→20:43)
[2016-07-06] MEDS: POTASSIUM GLUCONATE 99 MG PO SCH ×2 (13:39→20:43)
[2016-07-06] MEDS: NORETHINDRONE ACET PO SCH (13:39)
[2016-07-06] MEDS: ESTRADIOL PO SCH (13:39)
[2016-07-06] MEDS: 0.9 % SODIUM CHLORIDE 1,000 ML IV SCH ×2 (13:40→13:54)
[2016-07-06] MEDS: ACETAMINOPHEN 325 MG TABLET PO PRN (13:50)
[2016-07-06] MEDS: MONTELUKAST 10 MG TABLET PO SCH (20:34)
[2016-07-06] MEDS: SENNOSIDES/DOCUSATE SODIUM 1 TAB TABLET PO SCH (20:43)
[2016-07-07] MEDS: ONDANSETRON 4 MG/2 ML VIAL IV PRN (01:03)
[2016-07-07] MEDS: HYDROmorphone 2 MG/ML SYRINGE IV PRN (01:03)
[2016-07-07] MEDS: ACETAMINOPHEN 325 MG TABLET PO PRN ×2 (01:35→05:13)
[2016-07-07 05:34] LABS: Mean Cell Volume 86.2 fL (80.0-100.0); Mean Corpuscular HGB Conc 32.4 g/dL (31.0-36.0); Mean Corpuscular Hemoglobin 27.9 pg (26.0-34.0); Platelet Count 380 K/mcL (140-440); RBC 3.38 M/mcL (4.00-5.20); Red Cell Distribution Width 16.3 % (11.5-14.5)
[2016-07-07] MEDS: 0.9 % SODIUM CHLORIDE 10 ML SYRINGE IV SCH ×3 (05:38→23:31)
[2016-07-07 06:03] LABS: ALT/SGPT 9 U/l (0-40); Albumin 2.9 gm/dL (3.2-5.2); Albumin/Globulin Ratio 1.2 (1.0-2.3); Alkaline Phosphatase 52 U/L (39-117); Bilirubin,Direct < 0.2 mg/dL (0.0-0.3); Blood Urea Nitrogen 6 mg/dl (8-23); Gamma Glutamyl Transpeptidase 31 U/L (5-36); Magnesium 1.9 mg/dL (1.6-2.5); Phosphorous 3.4 mg/dL (2.7-4.5); Uric Acid 2.4 mg/dL (2.5-8.0)
[2016-07-07 06:49] LABS: Anisocytosis 1+ (NONE SEEN); Eosinophils % (Manual) 1 % (0-7); Lymphocytes % 11 % (15-49); Monocytes % (Manual) 10 % (1-9); Ovalocytes FEW (NONE SEEN); Platelet Estimate NORMAL (NORMAL); RBC Morphology ABNORM (NORMAL); Segmented Neutrophils % 78 % (38-78)
[2016-07-07] MEDS: PANTOPRAZOLE 40 MG TABLET PO SCH ×2 (07:14→17:03)
[2016-07-07] MEDS: LEVOTHYROXINE 150 MCG TABLET PO SCH (07:14)
[2016-07-07] MEDS: DOCUSATE SODIUM 100 MG CAPSULE PO SCH (08:11)
[2016-07-07] MEDS: LIOTHYRONINE 5 MCG TABLET PO SCH (08:11)
[2016-07-07] MEDS: HEPARIN 5,000 UNIT/ML VIAL SQ SCH (08:12)
[2016-07-07] MEDS: MULTIVIT,THER IRON,CA,FA & MIN 1 TABLET PO SCH (08:12)
[2016-07-07] MEDS: morphine 30 MG TAB.SR.12H PO SCH ×2 (08:12→21:09)
[2016-07-07] MEDS: FLUTICASONE PROPIONATE SPRAY.NAS NS SCH (08:12)
[2016-07-07] MEDS: MAGNESIUM OXIDE 400 MG TABLET PO SCH (08:12)
[2016-07-07] MEDS: NORETHINDRONE ACET PO SCH (08:13)
[2016-07-07] MEDS: ESTRADIOL PO SCH (08:13)
[2016-07-07] MEDS: POTASSIUM GLUCONATE 99 MG PO SCH (08:13)
--- NOTE | 2016-07-07 09:52 | Internal Med Progress Note ---
Medical - PN: Subj Patient information: Note initiated : 07/07/16 at 9:49 am Service Date, if different from initiated Date: [] Patient: Amparo Briceno 70 y/o F admitted on 07/05/16 for Right Hip Pain, Positive C-Diff. Chief Complaint: [] Interval history: 07/05- patient very with severe symptomatic hyponatremia with sodium at 122 with weakness fatigue secondary to persistent diarrhea. Recent C. difficile status post 14 days of Flagyl treatment. Started on oral vancomycin. Initial C. difficile negative and EGD. Patient on every 4 sodium checks along with continued crystalloids replacement for solute loss and hypovolemic hyponatremia. urine osmolality appropriately low suggestive against SIADH. 07/06- continue crystalloids replacement. Sodium improved to 130/24 hours from 122. repeat C. difficile pending. No overnight fever chills. Patient more alert and lucid and improved fatigue. Tolerating diet. no other concerns expressed by nursing staff. no telemetry events. Continue physical therapy 07/07- patient is not better. Sodium at 128. Diarrhea improving. Persistent fatigue lethargic and weakness however improved since admission. Tolerating diet. Participate in physical therapy. No telemetry events. Overnight fever chills nausea vomiting or concerns per staff. Transfer to medical floor. Possible discharge in 24 hours - Constitutional Vitals: Vital Signs Temp Pulse Resp BP Pulse Ox 98.8 F 75 14 125/76 96 07/07/16 07:42 07/07/16 07:42 07/07/16 07:42 07/07/16 07:42 07/07/16 07:42 Period Temp Pulse Resp BP Sys/Robb Pulse Ox Last 24 Hr 97.2 F-102 F 75-108 14-20 118-153/64-82 92-97 Intake and Output 07/06/16 07/07/16 07/07/16 21:59 05:59 13:59 Intake Total 920 / 920 940 / 940 Output Total 1400 / 1400 350 / 350 Balance -480 / -480 590 / 590 Weight 111 lb 8 oz Intake & Output: Intake & Output 07/06/16 07/07/16 07/07/16 21:59 05:59 13:59 Intake Total 920 / 920 940 / 940 Output Total 1400 / 1400 350 / 350 Balance -480 / -480 590 / 590 Weight 111 lb 8 oz Intake: Oral 920 / 920 940 / 940 Output: Void Amount 1400 / 1400 350 / 350 Other: Meal Dinner Percent of Meal Consumed 75% Feeding Ability Independent # Voids 1 # Bowel Movements 1 General appearance: cooperative, no acute distress Exam: alert oriented nonlabored breathing no anxiety No pallor No lymphedema Medical - PN: Obj Da - Labs CBC & Chem 7: 07/07/16 04:30 07/07/16 04:30 Labs: Abnormal Lab Results 07/07/16 07/07/16 07/06/16 04:30 04:30 12:25 RBC 3.38 L Hgb 9.4 L Hct 29.2 L RDW 16.3 H MPV 6.6 L Lymphocytes % 11 L Monocytes % (Manual) 10 H RBC Morphology Abnorm A Anisocytosis 1+ A Ovalocytes Few A Sodium 128 L 131 L Chloride 92 L BUN 6 L Creatinine 0.5 L Glucose 110 H Uric Acid 2.4 L Calcium 8.0 L Total Protein 5.4 L Albumin 2.9 L TSH 07/06/16 07/06/16 07/06/16 08:03 04:26 04:26 RBC 3.32 L Hgb 9.4 L Hct 28.7 L RDW 16.3 H MPV 6.8 L Lymphocytes % 11 L Monocytes % (Manual) 13 H RBC Morphology Anisocytosis 1+ A Ovalocytes Sodium 130 L 130 L Chloride BUN 7 L Creatinine 0.5 L Glucose Uric Acid Calcium 8.0 L Total Protein 5.2 L Albumin 2.9 L TSH 07/05/16 07/05/16 21:07 19:55 RBC Hgb Hct RDW MPV Lymphocytes % Monocytes % (Manual) RBC Morphology Anisocytosis Ovalocytes Sodium 126 L Chloride BUN Creatinine Glucose Uric Acid Calcium Total Protein Albumin TSH 0.08 L Meds: Medications Acetaminophen (Tylenol) 650 mg PO Q4-6HP PRN PRN Reason: PAIN/FEVER > 101 Last Admin: 07/07/16 05:13 Dose: 650 mg Acetaminophen/Butalbital/Caffeine (Fioricet) 1 tab PO Q4HP PRN PRN Reason: pain Docusate Sodium (Colace) 100 mg PO BID [facility] Last Admin: 07/07/16 08:11 Dose: Not Given Fluticasone Propionate (Flonase) 1 spray NS BID [facility] Last Admin: 07/07/16 08:12 Dose: Not Given Heparin Sodium (Porcine) (Heparin) 5,000 unit SQ Q12 [facility] Last Admin: 07/07/16 08:12 Dose: 5,000 unit Hydromorphone HCl (Dilaudid) 0 mg IV Q4HP PRN PRN Reason: Pain Last Admin: 07/07/16 01:03 Dose: 0.5 mg Magnesium Sulfate (Magnesium Sulfate) 2 gm in 50 mls @ 50 mls/hr IV UD PRN PRN Reason: MG = or < 1.7 Last Admin: 07/06/16 15:15 Dose: 50 mls/hr Sodium Chloride (Sodium Chloride 0.9%) 1,000 mls @ 50 mls/hr IV .Q20H [facility] Stop: 07/08/16 03:01 Last Admin: 07/06/16 13:54 Dose: 50 mls/hr Iron Carb/Multivit/[place]/Folic Acid (Multivitamin W/Minerals) 1 tab PO DAILY [facility] Last Admin: 07/07/16 08:12 Dose: 1 tab Levothyroxine Sodium (Synthroid) 150 mcg PO QAMAC [facility] Last Admin: 07/07/16 07:14 Dose: 150 mcg Liothyronine Sodium (Cytomel) 50 mcg PO DAILY [facility] Last Admin: 07/07/16 08:11 Dose: 50 mcg Magnesium Oxide (Magnesium Oxide) 400 mg PO DAILY [facility] Last Admin: 07/07/16 08:12 Dose: 400 mg Montelukast Sodium (Singular) 10 mg PO QPM [facility] Last Admin: 07/06/16 20:34 Dose: 10 mg Morphine Sulfate (Ms Contin) 180 mg PO BID [facility] Last Admin: 07/07/16 08:12 Dose: 180 mg Ondansetron HCl (Zofran) 4 mg IV Q4-6HP PRN PRN Reason: Nausea And Vomiting Last Admin: 07/07/16 01:03 Dose: 4 mg Ondansetron HCl (Zofran Odt) 8 mg SL TIDP PRN PRN Reason: Nausea And Vomiting Pantoprazole Sodium (Protonix) 40 mg PO BIDAC [facility] Last Admin: 07/07/16 07:14 Dose: 40 mg Estradiol/Norethindrone Acet [ Lopreeza] 0.5/0.1 Mg Tab 1 dose PO QDAY [facility] Last Admin: 07/07/16 08:13 Dose: Not Given Fluticasone/Vilanterol [Breo Ellipta] 200/25 Mcg Inhaler 1 dose INH DAILY [facility] Last Admin: 07/07/16 08:13 Dose: Not Given Potassium Gluconate [Potassium] 99 Mg Tab 1 dose PO BID [facility] Last Admin: 07/07/16 08:13 Dose: Not Given Potassium Chloride (Klor-Con) 40 meq PO DAILYP PRN PRN Reason: K+ < 3.5 Senna/Docusate Sodium (Senna Plus Tablet) 1 tab PO HS [facility] Last Admin: 07/06/16 20:43 Dose: Not Given Sodium Chloride (Saline Flush) 10 ml IV Q8 [facility] Last Admin: 07/07/16 05:38 Dose: Not Given Medical - PN: A/P - Time Spent With Patient Total time spent is greater than 50% in coordination of care (as documented) at patient's floor/unit and/or counseling patient: 15 - 24 minutes (1) Hyponatremia with extracellular fluid depletion Status: Acute Assessment and plan: * Hypovolemic hyponatremia- secondary to solute loss from underlying diarrhea. sodium at 128. Diarrhea resolved. Transfer to medical floor. Weakness resolved * Diarrhea-C. difficile negative twice. Noninfectious.. Clinically improving * Severe weakness secondary to underlyin hyponatremia- clinically resolved. Participating in physical therapy * Hypothyroidism on thyroxine * Chronic pain on external release morphine * DVT prophylaxis on heparin Plan * transfer to medical floor * DC oral vancomycin * pre-existing medical condition management as above * possible discharge in 24 hours * continue physical therapy Current Visit: Yes Medical - PN: Qual - Stroke Symptom Onset Unknown: No - VTE Deep Vein Thrombosis/Pulmonary Embolism Present on Admission: No
[2016-07-07] MEDS ORDERED: ACETAMINOPHEN 325 MG TABLET PO PRN (10:09)
[2016-07-07] MEDS ORDERED: BUTALB/ACETAMINOPHEN/CAFFEINE 1 TABLET PO PRN (10:09)
[2016-07-07] MEDS ORDERED: POTASSIUM CHLORIDE 20 MEQ PACKET PO PRN (10:09)
[2016-07-07] MEDS ORDERED: ONDANSETRON ODT 4 MG TABLET SL PRN (10:09)
[2016-07-07] MEDS ORDERED: 0.9 % SODIUM CHLORIDE 1,000 ML IV SCH (10:09)
[2016-07-07] MEDS ORDERED: MAGNESIUM SULFATE 2 GM/50 ML BAG IV PRN (10:09)
[2016-07-07] MEDS: 0.9 % SODIUM CHLORIDE 1,000 ML IV SCH (16:11)
--- NOTE | 2016-07-07 16:40 | General Surgery Consult Note ---
History of Present Illness Patient information: Note initiated : 07/07/16 at 4:38 pm Service Date, if different from initiated Date: [] Patient: Amparo Briceno 70 y/o F admitted on 07/05/16 for Right Hip Pain, Positive C-Diff. Chief Complaint: [] Reason for consult: abdominal pain (diarrhea) History of present illness: 70-year-old female with history of chronic irritable bowel syndrome who underwent t transabdominal posternuary 2016. She presented on 19 June with elevated temperature and leukocytosis and abdominal pain with diarrhea. She had positive C. difficile titer and was treated for 5 days in the hospital and 15 days as an outpatient with by mouth Flagyl. She continues to have diarrhea up to 10 times per day. She was readmitted 2 days ago and her C. difficile repeat was negative. She has been treated with by mouth vancomycin however she continues to have 6-10 liquid bowel movements per day and she continues to have diffuse abdominal pain. She had a white count of 11.8 on admission but that has returned to normal. Since the patient continues to have significant diarrhea on treatment it is felt that she should have diagnostic colonoscopy to look for other treatable reasons for her diarrhea. She is counseled for this and she gives her informed consent. The colonoscopy will be done in the morning. Review of Systems - Constitutional anorexia, chills, fatigue, malaise, weakness, weight loss - EENT Nose, mouth and throat: no change in voice, no dysphagia, no hoarseness, no mouth pain, no neck pain - Cardiovascular no chest pain with activity, no dyspnea on exertion, no palpatations, no rapid heart rate - Respiratory no cough, no dyspnea on exertion, no pain on inspirtation - Gastrointestinal abdominal pain, bloating, diarrhea, fecal incontinence, nausea, vomiting - Genitourinary Genitourinary: urinary incontinence, no dysuria, no urinary frequency - Musculoskeletal arthralgias, back pain, joint swelling, myalgias, radiating pain into limb - Integumentary no changing lesions, no pruritus, no rash - Neurological headache(s), weakness, no confusion, no memory loss - Psychiatric anxiety, depression, irritability, mood swings - Endocrine fatigue, no palpitations - Hematologic/Lymphatic no easy bleeding, no easy bruising, no lymphadenopathy - Allergic/Immunologic no tongue swelling, no throat swelling, no uticaria, no wheezing, no lip swelling Past History Past medical history: chronic asthma Chronic diarrhea Gastroesophageal reflux Irritable bowel syndrome Inflammatory polyarthritis Situational depression Past surgical history: Ripstein posterior proctopexy 31 May 2016 Past family history: carcinoma prostate Carcinoma trachea and lung Past social history: never smoker Medications and Allergies Home Medications Medication Instructions Recorded Confirmed Type magnesium oxide 400 mg capsule 300 mg PO .qd cap 02/21/15 07/05/16 History potassium gluconate 595 mg (99 mg) 99 mg PO BID tab 02/21/15 07/05/16 History tablet fluticasone 200 mcg-vilanterol 25 1 each INHALATION .qdaily each 09/08/1507/05 History mcg/dose powder for inhalation fluticasone 50 mcg/actuation nasal 1 spray INTRANASAL BID #16 g 03/08/16 Rx spray,suspension [id number] 1 tab-cap PO Q4H PRN #50 tab 04/09/16 Rx 50 mg-325 mg-40 mg tablet omeprazole 20 mg capsule,delayed 20 mg PO BID #180 cap 04/18/16 07/05/16 Rx release montelukast 10 mg tablet 10 mg PO QPM #90 tab 05/17/16 07/05/16 Rx ondansetron 8 mg disintegrating 8 mg PO TID PRN #90 tab 05/21/16 07/05/16 Rx tablet levothyroxine 150 mcg capsule 150 mcg PO QDAY 05/23/16 07/05/16 History liothyronine 25 mcg tablet 50 mcg PO QDAY #180 tab 06/17/16 07/05/16 Rx Meloxicam 15 mg PO BID 06/19/16 07/05/16 History Polyethylene Glycol 3350 [Miralax] 17 gm PO HS 06/19/16 07/05/16 History Sertraline [Zoloft] 100 mg PO HS 06/19/16 07/05/16 History metroNIDAZOLE [Flagyl] 500 mg PO Q6 #60 tablet 06/22/16 07/05/16 Rx estradiol-norethindrone acet 0.5 1 tab PO QDAY #90 tab 07/01/16 07/05/16 Rx mg-0.1 mg tablet morphine ER 200 mg tablet,extended 200 mg PO BID #60 tab 07/01/16 07/05/16 Rx release Allergies Allergy/AdvReac Type Severity Reaction Status Date / Time clindamycin AdvReac Mild Diarrhea Verified 06/19/16 14:49 Exam Temp Pulse Resp BP Pulse Ox 98.3 F 68 16 132/78 96 07/07/16 12:00 07/07/16 12:00 07/07/16 12:00 07/07/16 12:00 07/07/16 12:00 - General physical appearance well developed, well nourished, no distress, moderate pain, chronically ill - Eyes PERRL, normal ocular movement - ENT normal pinna, normal nares, normal mucosa, no hearing loss, no congestion - Head Head exam IM: Present: atraumatic, normocephalic - Neck no masses, no bruits, trachea midline, no lymphadectomy, no venous distension - Cardiovascular Cardiovascular exam IM: Present: normal rate and rhythm, RRR, +S1, +S2. Absent : JVD - Respiratory normal expansion, normal respiratory effort, clear to percussion, clear to auscultation - Abdomen Abdomen: Present: soft, tender (iffusely tender with good active bowel sounds; well-healed surgical scarsMalick distended), bowel sounds Hernia: Present: none - Genitourinary Present: normal external genitalia - Rectum Rectum: Present: normal sphincter tone, no hemorrhoids, no tenderness, no masses , no bleeding - Integumentary Present: no rash, no growths, no abnormal pigmentation - Neurologic Present: normal coordination, normal sensation - Musculoskeletal Present: normal gait, normal posture - Psychiatric Present: oriented to time, oriented to person, oriented to place, speech is normal, memory intact, other (mouth situational depression) Results - Labs 07/07/16 04:30 07/07/16 04:30 Abnormal lab results 07/07/16 07/07/16 Range/Units 04:30 04:30 RBC 3.38 L (4.00-5.20) M/mcL Hgb 9.4 L (12.0-15.0) g/dL Hct 29.2 L (36.0-48.0) % RDW 16.3 H (11.5-14.5) % MPV 6.6 L (7.4-10.4) fL Lymphocytes % 11 L (15-49) % Monocytes % (Manual) 10 H (1-9) % RBC Morphology Abnorm A (NORMAL) Anisocytosis 1+ A (NONE SEEN) Ovalocytes Few A (NONE SEEN) Sodium 128 L (133-145) mmol/L Chloride 92 L (96-108) mmol/L BUN 6 L (8-23) mg/dl Creatinine 0.5 L (0.6-1.1) mg/dl Glucose 110 H (70-105) mg/dL Uric Acid 2.4 L (2.5-8.0) mg/dL Calcium 8.0 L (8.6-10.4) mg/dl Total Protein 5.4 L (5.9-8.4) gm/dL Albumin 2.9 L (3.2-5.2) gm/dL Diabetes panel 07/07/16 Range/Units 04:30 Sodium 128 L (133-145) mmol/L Potassium 4.6 (3.3-5.1) mmol/L Chloride 92 L (96-108) mmol/L Carbon Dioxide 23 (22-30) mmol/L BUN 6 L (8-23) mg/dl Creatinine 0.5 L (0.6-1.1) mg/dl Glucose 110 H (70-105) mg/dL Calcium 8.0 L (8.6-10.4) mg/dl AST 14 (0-37) U/l ALT 9 (0-40) U/l Alkaline Phosphatase 52 (39-117) U/L Total Protein 5.4 L (5.9-8.4) gm/dL Albumin 2.9 L (3.2-5.2) gm/dL Triglycerides 59 (<150) mg/dl Calcium panel 07/07/16 Range/Units 04:30 Calcium 8.0 L (8.6-10.4) mg/dl Phosphorus 3.4 (2.7-4.5) mg/dL Albumin 2.9 L (3.2-5.2) gm/dL Pituitary panel 07/07/16 Range/Units 04:30 Sodium 128 L (133-145) mmol/L Potassium 4.6 (3.3-5.1) mmol/L Chloride 92 L (96-108) mmol/L Carbon Dioxide 23 (22-30) mmol/L BUN 6 L (8-23) mg/dl Creatinine 0.5 L (0.6-1.1) mg/dl Glucose 110 H (70-105) mg/dL Calcium 8.0 L (8.6-10.4) mg/dl Adrenal panel 07/07/16 Range/Units 04:30 Sodium 128 L (133-145) mmol/L Potassium 4.6 (3.3-5.1) mmol/L Chloride 92 L (96-108) mmol/L Carbon Dioxide 23 (22-30) mmol/L BUN 6 L (8-23) mg/dl Creatinine 0.5 L (0.6-1.1) mg/dl Glucose 110 H (70-105) mg/dL Calcium 8.0 L (8.6-10.4) mg/dl Total Bilirubin 0.3 (0.0-1.0) mg/dL AST 14 (0-37) U/l ALT 9 (0-40) U/l Alkaline Phosphatase 52 (39-117) U/L Total Protein 5.4 L (5.9-8.4) gm/dL Albumin 2.9 L (3.2-5.2) gm/dL All other labs normal.
--- NOTE | 2016-07-07 17:02 | General Surgery Consult Note ---
History of Present Illness Patient information: Note initiated : 07/07/16 at 4:59 pm Service Date, if different from initiated Date: [] Patient: Amparo Briceno 70 y/o F admitted on 07/05/16 for Right Hip Pain, Positive C-Diff. Chief Complaint: [] Reason for consult: other (chronic persistent diarrheaand chronic abdominal pain ) History of present illness: 70-year-old female with a history of rectal prolapse chronic diarrhea and fecal incontinence. She underwent transabdominal posterior proctopexy on 31 May 2016. She was discharged home in stable condition and was readmitted on 19 June with persistent diarrhea fever or leukocytosis. She was found to have C. difficile colitis. This was treated with IV Flagyl and by mouth vancomycin. She responded appropr and was discharged home on 15 days of by mouth vancomycin. Over the last few days she has had continued diarrhea up to 10 times per day. She was readmitted 2 days ago with white count of 11,000 and negative C. difficile titer. She has been treated with vancomycin and her white count has decreased to normal but she continues to have persistent diarrhea. She is counseled for colonoscopy to evaluate her colon to rule out colitisprior to adding any antidiarrheal agents. She gives her informed consent. Review of Systems - Constitutional fatigue, headache(s), lethargy, weight loss - EENT Nose, mouth and throat: dizziness - Cardiovascular no chest pain with activity, no dyspnea on exertion, no orthopnea, no rapid heart rate, no syncope - Respiratory no cough, no dyspnea on exertion, no pain on inspirtation - Gastrointestinal abdominal pain, cramping, diarrhea, fecal incontinence, heartburn, loose stools , nausea, vomiting - Musculoskeletal abnormal gait, arthralgias, back pain, joint swelling, myalgias, radiating pain into limb, stiffness - Integumentary no changing lesions, no erythema, no pruritus, no rash - Neurological abnormal gait, headache(s), no confusion, no convulsions, no dizziness, no syncope, no vertigo - Psychiatric anxiety, depression, irritability, no confusion - Endocrine fatigue - Hematologic/Lymphatic no easy bleeding, no easy bruising, no lymphadenopathy - Allergic/Immunologic no tongue swelling, no throat swelling, no uticaria, no wheezing, no lip swelling Past History Past medical history: chronic asthma Gastroesophageal reflux disease Irritable bowel syndrome Inflammatory polyarthritis Situational depression History of C. dle colitis History of rectal prolapse treated Past surgical history: hysterectomy Posterior proctopexy Past family history: prostate cancer Lung cancer Past social history: soren and cares for her invalid former smoker Medications and Allergies Home Medications Medication Instructions Recorded Confirmed Type magnesium oxide 400 mg capsule 300 mg PO .qd cap 02/21/15 07/05/16 History potassium gluconate 595 mg (99 mg) 99 mg PO BID tab 02/21/15 07/05/16 History tablet fluticasone 200 mcg-vilanterol 25 1 each INHALATION .qdaily each 09/08/1507/05 History mcg/dose powder for inhalation fluticasone 50 mcg/actuation nasal 1 spray INTRANASAL BID #16 g 03/08/16 Rx spray,suspension [id number] 1 tab-cap PO Q4H PRN #50 tab 04/09/16 Rx 50 mg-325 mg-40 mg tablet omeprazole 20 mg capsule,delayed 20 mg PO BID #180 cap 04/18/16 07/05/16 Rx release montelukast 10 mg tablet 10 mg PO QPM #90 tab 05/17/16 07/05/16 Rx ondansetron 8 mg disintegrating 8 mg PO TID PRN #90 tab 05/21/16 07/05/16 Rx tablet levothyroxine 150 mcg capsule 150 mcg PO QDAY 05/23/16 07/05/16 History liothyronine 25 mcg tablet 50 mcg PO QDAY #180 tab 06/17/16 07/05/16 Rx Meloxicam 15 mg PO BID 06/19/16 07/05/16 History Polyethylene Glycol 3350 [Miralax] 17 gm PO HS 06/19/16 07/05/16 History Sertraline [Zoloft] 100 mg PO HS 06/19/16 07/05/16 History metroNIDAZOLE [Flagyl] 500 mg PO Q6 #60 tablet 06/22/16 07/05/16 Rx estradiol-norethindrone acet 0.5 1 tab PO QDAY #90 tab 07/01/16 07/05/16 Rx mg-0.1 mg tablet morphine ER 200 mg tablet,extended 200 mg PO BID #60 tab 07/01/16 07/05/16 Rx release Allergies Allergy/AdvReac Type Severity Reaction Status Date / Time clindamycin AdvReac Mild Diarrhea Verified 06/19/16 14:49 Exam Temp Pulse Resp BP Pulse Ox 98.3 F 68 16 132/78 96 07/07/16 12:00 07/07/16 12:00 07/07/16 12:00 07/07/16 12:00 07/07/16 12:00 - General physical appearance well developed, well nourished, no distress - Eyes PERRL, normal ocular movement - ENT normal pinna, normal nares, normal mucosa, no hearing loss, no congestion - Head Head exam IM: Present: atraumatic, normocephalic - Neck no masses, no bruits, trachea midline, no lymphadectomy, no venous distension - Cardiovascular Cardiovascular exam IM: Present: normal rate and rhythm - Respiratory normal expansion, normal respiratory effort, clear to percussion, clear to auscultation - Abdomen Abdomen: Present: soft, tender, bowel sounds, wound (healed incision with mild diffuse tenderness; good active bowel sounds) Hernia: Present: none - Rectum Rectum: Present: no hemorrhoids, no tenderness, no masses, no bleeding, other ( poor sphincter tone;) - Integumentary Present: no rash, no growths, no abnormal pigmentation - Neurologic Present: normal coordination, normal sensation - Musculoskeletal Present: normal posture, other (abnormal gait) - Psychiatric Present: oriented to time, oriented to person, oriented to place, speech is normal, memory intact, other (mild depression) Results - Labs 07/07/16 04:30 07/07/16 04:30 Abnormal lab results 07/07/16 07/07/16 Range/Units 04:30 04:30 RBC 3.38 L (4.00-5.20) M/mcL Hgb 9.4 L (12.0-15.0) g/dL Hct 29.2 L (36.0-48.0) % RDW 16.3 H (11.5-14.5) % MPV 6.6 L (7.4-10.4) fL Lymphocytes % 11 L (15-49) % Monocytes % (Manual) 10 H (1-9) % RBC Morphology Abnorm A (NORMAL) Anisocytosis 1+ A (NONE SEEN) Ovalocytes Few A (NONE SEEN) Sodium 128 L (133-145) mmol/L Chloride 92 L (96-108) mmol/L BUN 6 L (8-23) mg/dl Creatinine 0.5 L (0.6-1.1) mg/dl Glucose 110 H (70-105) mg/dL Uric Acid 2.4 L (2.5-8.0) mg/dL Calcium 8.0 L (8.6-10.4) mg/dl Total Protein 5.4 L (5.9-8.4) gm/dL Albumin 2.9 L (3.2-5.2) gm/dL Diabetes panel 07/07/16 Range/Units 04:30 Sodium 128 L (133-145) mmol/L Potassium 4.6 (3.3-5.1) mmol/L Chloride 92 L (96-108) mmol/L Carbon Dioxide 23 (22-30) mmol/L BUN 6 L (8-23) mg/dl Creatinine 0.5 L (0.6-1.1) mg/dl Glucose 110 H (70-105) mg/dL Calcium 8.0 L (8.6-10.4) mg/dl AST 14 (0-37) U/l ALT 9 (0-40) U/l Alkaline Phosphatase 52 (39-117) U/L Total Protein 5.4 L (5.9-8.4) gm/dL Albumin 2.9 L (3.2-5.2) gm/dL Triglycerides 59 (<150) mg/dl Calcium panel 07/07/16 Range/Units 04:30 Calcium 8.0 L (8.6-10.4) mg/dl Phosphorus 3.4 (2.7-4.5) mg/dL Albumin 2.9 L (3.2-5.2) gm/dL Pituitary panel 07/07/16 Range/Units 04:30 Sodium 128 L (133-145) mmol/L Potassium 4.6 (3.3-5.1) mmol/L Chloride 92 L (96-108) mmol/L Carbon Dioxide 23 (22-30) mmol/L BUN 6 L (8-23) mg/dl Creatinine 0.5 L (0.6-1.1) mg/dl Glucose 110 H (70-105) mg/dL Calcium 8.0 L (8.6-10.4) mg/dl Adrenal panel 07/07/16 Range/Units 04:30 Sodium 128 L (133-145) mmol/L Potassium 4.6 (3.3-5.1) mmol/L Chloride 92 L (96-108) mmol/L Carbon Dioxide 23 (22-30) mmol/L BUN 6 L (8-23) mg/dl Creatinine 0.5 L (0.6-1.1) mg/dl Glucose 110 H (70-105) mg/dL Calcium 8.0 L (8.6-10.4) mg/dl Total Bilirubin 0.3 (0.0-1.0) mg/dL AST 14 (0-37) U/l ALT 9 (0-40) U/l Alkaline Phosphatase 52 (39-117) U/L Total Protein 5.4 L (5.9-8.4) gm/dL Albumin 2.9 L (3.2-5.2) gm/dL All other labs normal. Assessment and Plan (1) Hyponatremia syndrome Status: Acute (2) Recurrent colitis due to Clostridium difficile patient counseled for colonoscopy. This will be done in the morning. Her prep will only be enemas tonight and in the morning. Status: Acute (3) Esophageal reflux Status: Chronic Qualifiers: Esophagitis presence: without esophagitis Qualified Code(s): K21.9 - Gastro -esophageal reflux disease without esophagitis (4) Irritable bowel syndrome Status: Chronic (5) Polyarthropathy, inflammatory Status: Chronic (6) Situational depression Status: Chronic
[2016-07-07] MEDS ORDERED: VANCOMYCIN PER PHARMACY IV ONE (17:41)
[2016-07-07] MEDS ORDERED: VANCOMYCIN 500 MG VIAL ONE (20:46)
[2016-07-07] MEDS ORDERED: MONTELUKAST 10 MG TABLET PO SCH (21:00)
[2016-07-07] MEDS ORDERED: DOCUSATE SODIUM 100 MG CAPSULE PO SCH (21:00)
[2016-07-07] MEDS ORDERED: HEPARIN 5,000 UNIT/ML VIAL SQ SCH (21:00)
[2016-07-07] MEDS ORDERED: SENNOSIDES/DOCUSATE SODIUM 1 TAB TABLET PO SCH (21:00)
[2016-07-07] MEDS: SODIUM CHLORIDE 1 GM TABLET PO SCH (23:30)
[2016-07-07] MEDS: VANCOMYCIN 750 MG in 0.9 % SODIUM CHLORIDE 250 ML IV SCH (23:40)
[2016-07-08] MEDS: FLUTICASONE PROPIONATE SPRAY.NAS NS SCH ×3 (00:30→21:59)
[2016-07-08] MEDS: HYDROmorphone 2 MG/ML SYRINGE IV PRN ×2 (01:51→07:18)
[2016-07-08] MEDS: SODIUM CHLORIDE 1 GM TABLET PO SCH ×3 (05:23→09:26)
[2016-07-08 06:04] LABS: Mean Cell Volume 86.3 fL (80.0-100.0); Mean Corpuscular HGB Conc 32.5 g/dL (31.0-36.0); Platelet Count 385 K/mcL (140-440); RBC 3.43 M/mcL (4.00-5.20); Red Cell Distribution Width 16.3 % (11.5-14.5)
[2016-07-08] MEDS: 0.9 % SODIUM CHLORIDE 10 ML SYRINGE IV SCH ×3 (06:04→22:00)
[2016-07-08 06:52] LABS: ALT/SGPT 11 U/l (0-40); Albumin 2.9 gm/dL (3.2-5.2); Albumin/Globulin Ratio 1.1 (1.0-2.3); Alkaline Phosphatase 53 U/L (39-117); Bilirubin,Direct < 0.2 mg/dL (0.0-0.3); Blood Urea Nitrogen 5 mg/dl (8-23); Gamma Glutamyl Transpeptidase 31 U/L (5-36); Magnesium 1.6 mg/dL (1.6-2.5); Phosphorous 3.8 mg/dL (2.7-4.5); Uric Acid 2.1 mg/dL (2.5-8.0)
[2016-07-08] MEDS ORDERED: LEVOTHYROXINE 150 MCG TABLET PO SCH (07:30)
[2016-07-08] MEDS: PANTOPRAZOLE 40 MG TABLET PO SCH ×2 (07:59→16:59)
[2016-07-08 08:19] LABS: Anisocytosis 1+ (NONE SEEN); Band Neutrophils % 2 % (0-10); Eosinophils % (Manual) 2 % (0-7); Lymphocytes % 11 % (15-49); Monocytes % (Manual) 18 % (1-9); Platelet Estimate NORMAL (NORMAL); RBC Morphology ABNORM (NORMAL); Segmented Neutrophils % 67 % (38-78)
[2016-07-08] MEDS ORDERED: ESTRADIOL PO SCH (09:00)
[2016-07-08] MEDS ORDERED: LIOTHYRONINE 5 MCG TABLET PO SCH (09:00)
[2016-07-08] MEDS ORDERED: MULTIVIT,THER IRON,CA,FA & MIN 1 TABLET PO SCH (09:00)
[2016-07-08] MEDS ORDERED: NORETHINDRONE ACET PO SCH (09:00)
[2016-07-08] MEDS ORDERED: MAGNESIUM OXIDE 400 MG TABLET PO SCH (09:00)
[2016-07-08] MEDS ORDERED: HYDROmorphone 2 MG/ML SYRINGE IV PRN ×2 (09:08→11:53)
[2016-07-08] MEDS: VANCOMYCIN 750 MG in 0.9 % SODIUM CHLORIDE 250 ML IV SCH ×2 (09:13→22:00)
[2016-07-08] MEDS: morphine 30 MG TAB.SR.12H PO SCH ×2 (09:25→20:44)
--- NOTE | 2016-07-08 10:08 | Internal Med Progress Note ---
Medical - PN: Subj Patient information: Note initiated : 07/08/16 at 10:03 am Service Date, if different from initiated Date: [] Patient: Amparo Briceno 70 y/o F admitted on 07/05/16 for Severe Symptomatic Hyponatremia along w/ Diarrhea. Chief Complaint: [] Interval history: 07/05- patient very with severe symptomatic hyponatremia with sodium at 122 with weakness fatigue secondary to persistent diarrhea. Recent C. difficile status post 14 days of Flagyl treatment. Started on oral vancomycin. Initial C. difficile negative and EGD. Patient on every 4 sodium checks along with continued crystalloids replacement for solute loss and hypovolemic hyponatremia. urine osmolality appropriately low suggestive against SIADH. 07/06- continue crystalloids replacement. Sodium improved to 130/24 hours from 122. repeat C. difficile pending. No overnight fever chills. Patient more alert and lucid and improved fatigue. Tolerating diet. no other concerns expressed by nursing staff. no telemetry events. Continue physical therapy 07/07- patient is not better. Sodium at 128. Diarrhea improving. Persistent fatigue lethargic and weakness however improved since admission. Tolerating diet. Participate in physical therapy. No telemetry events. Overnight fever at 102,chills but no nausea vomiting or concerns per staff. Transfer to medical floor. Possible discharge in 24 hours 07/08- patient doing well however 2 out of 2 cultures positive for gram-positive bacteria. Unclear source. Colonoscopy today. Suspect abscess. Rule out endocarditis with a cardiogram. Surveillance cultures pending. Started on antibiotic coverage on vancomycin And Zosyn. no overnight fever chills. continue source evaluate - Constitutional Vitals: Vital Signs Temp Pulse Resp BP Pulse Ox 99.6 F 85 18 136/70 97 07/08/16 08:00 07/08/16 08:00 07/08/16 08:00 07/08/16 08:00 07/08/16 08:00 Period Temp Pulse Resp BP Sys/Robb Pulse Ox Last 24 Hr 98.3 F-99.8 F 68-98 16-20 130-166/70-96 92-97 Intake and Output 07/07/16 07/08/16 07/08/16 21:59 05:59 13:59 Output Total 800 / 800 Balance -800 / -800 -1 -1 Weight 120 lb Intake & Output: Intake & Output 07/07/16 07/08/16 07/08/16 21:59 05:59 13:59 Output Total 800 / 800 Balance -800 / -800 - Weight 120 lb Output: Void Amount 800 / 800 # of times incontinent of urine Other: # Voids 1 1 # Bowel Movements 1 General appearance: cooperative, no acute distress Exam: alert oriented nonlabored breathing Nondistended /Nontender abdomen no lymphedema Medical - PN: Obj Da - Labs CBC & Chem 7: 07/08/16 04:30 07/08/16 04:30 Labs: Abnormal Lab Results 07/08/16 07/08/16 07/07/16 04:30 04:30 04:30 RBC 3.43 L Hgb 9.6 L Hct 29.6 L RDW 16.3 H MPV 6.9 L Lymphocytes % 11 L Monocytes % (Manual) 18 H RBC Morphology Abnorm A Anisocytosis 1+ A Ovalocytes Sodium 131 L 128 L Chloride 92 L 92 L BUN 5 L 6 L Creatinine 0.4 L 0.5 L Glucose 110 H Uric Acid 2.1 L 2.4 L Calcium 8.1 L 8.0 L Total Protein 5.5 L 5.4 L Albumin 2.9 L 2.9 L TSH 07/07/16 07/06/16 07/06/16 04:30 12:25 08:03 RBC 3.38 L Hgb 9.4 L Hct 29.2 L RDW 16.3 H MPV 6.6 L Lymphocytes % 11 L Monocytes % (Manual) 10 H RBC Morphology Abnorm A Anisocytosis 1+ A Ovalocytes Few A Sodium 131 L 130 L Chloride BUN Creatinine Glucose Uric Acid Calcium Total Protein Albumin TSH 07/06/16 07/06/16 07/05/16 04:26 04:26 21:07 RBC 3.32 L Hgb 9.4 L Hct 28.7 L RDW 16.3 H MPV 6.8 L Lymphocytes % 11 L Monocytes % (Manual) 13 H RBC Morphology Anisocytosis 1+ A Ovalocytes Sodium 130 L Chloride BUN 7 L Creatinine 0.5 L Glucose Uric Acid Calcium 8.0 L Total Protein 5.2 L Albumin 2.9 L TSH 0.08 L 07/05/16 19:55 RBC Hgb Hct RDW MPV Lymphocytes % Monocytes % (Manual) RBC Morphology Anisocytosis Ovalocytes Sodium 126 L Chloride BUN Creatinine Glucose Uric Acid Calcium Total Protein Albumin TSH Meds: Medications Acetaminophen (Tylenol) 650 mg PO Q4-6HP PRN PRN Reason: PAIN/FEVER > 101 Acetaminophen/Butalbital/Caffeine (Fioricet) 1 tab PO Q4HP PRN PRN Reason: pain Fluticasone Propionate (Flonase) 1 spray NS BID [facility] Last Admin: 07/08/16 09:24 Dose: Not Given Hydromorphone HCl (Dilaudid) 1 mg IV Q4HP PRN PRN Reason: Pain Magnesium Sulfate (Magnesium Sulfate) 2 gm in 50 mls @ 50 mls/hr IV UD PRN PRN Reason: MG = or < 1.7 Vancomycin HCl 750 mg/ Sodium (Chloride) 250 mls @ 250 mls/hr IV Q12 [facility] Last Admin: 07/08/16 09:13 Dose: 200 mls/hr Iron Carb/Multivit/Duc[employer]/Folic Acid (Multivitamin W/Minerals) 1 tab PO DAILY [facility] Last Admin: 07/08/16 09:25 Dose: Not Given Levothyroxine Sodium (Synthroid) 150 mcg PO QAMAC [facility] Last Admin: 07/08/16 08:00 Dose: 150 mcg Liothyronine Sodium (Cytomel) 50 mcg PO DAILY [facility] Last Admin: 07/08/16 09:24 Dose: Not Given Magnesium Oxide (Magnesium Oxide) 400 mg PO DAILY [facility] Last Admin: 07/08/16 09:25 Dose: Not Given Montelukast Sodium (Singular) 10 mg PO QPM [facility] Last Admin: 07/07/16 21:09 Dose: 10 mg Morphine Sulfate (Ms Contin) 180 mg PO BID [facility] Last Admin: 07/08/16 09:25 Dose: Not Given Ondansetron HCl (Zofran Odt) 8 mg SL TIDP PRN PRN Reason: Nausea And Vomiting Last Admin: 07/07/16 23:30 Dose: 8 mg Pantoprazole Sodium (Protonix) 40 mg PO BIDAC [facility] Last Admin: 07/08/16 07:59 Dose: 40 mg Estradiol/Norethindrone Acet [ Lopreeza] 0.5/0.1 Mg Tablet 1 dose PO QDAY [facility] Last Admin: 07/08/16 09:25 Dose: Not Given Fluticasone/Vilanterol [Breo Ellipta] 200/25 Mcg Inhaler 1 dose INH DAILY [facility] Last Admin: 07/08/16 09:25 Dose: Not Given Potassium Gluconate [Potassium] 99 Mg Tablet 1 dose PO BID [facility] Last Admin: 07/08/16 09:26 Dose: Not Given Potassium Chloride (Klor-Con) 40 meq PO DAILYP PRN PRN Reason: K+ < 3.5 Sodium Chloride (Saline Flush) 10 ml IV Q8 [facility] Last Admin: 07/08/16 06:04 Dose: Not Given Medical - PN: A/P - Time Spent With Patient Total time spent is greater than 50% in coordination of care (as documented) at patient's floor/unit and/or counseling patient: 25 - 35 minutes (1) Hyponatremia with extracellular fluid depletion Status: Acute Assessment and plan: * Gram-positive bacteremia-wait echo/surveillance cultures. On Zosyn and vancomycin. de-escalate based on sensitivities * Hypovolemic hyponatremia- secondary to solute loss from underlying diarrhea. sodium at 131. Improved from 122. * Diarrhea-C. difficile negative twice. Noninfectious. colonoscopy today. * Severe weakness secondary to underlying hyponatremia- clinically improved with physical therapy. * Hypothyroidism on thyroxine * Chronic pain on morphin ER * DVT prophylaxis on heparin Plan * ontinue aggressive Bacteremia source evaluation * Await echo * IV vancomycin and Zosyn and de-escalate with sensitivities. 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 * Continue oral Vancomycin * pre-existing medical condition management as above * continue physical therapy Current Visit: Yes Medical - PN: Qual - Stroke Symptom Onset Unknown: No - VTE Deep Vein Thrombosis/Pulmonary Embolism Present on Admission: No
[2016-07-08] MEDS ORDERED: MIDAZOLAM 5 MG/5 ML VIAL IV ONE (10:40)
[2016-07-08] MEDS ORDERED: PROPOFOL 200 MG/20 ML VIAL IV ONE (10:40)
[2016-07-08] MEDS ORDERED: PIPERACILLIN SODIUM/TAZOBACTAM 3.375 GM in DEXTROSE 5% IN WATER 50 ML IV SCH (11:00)
[2016-07-08] MEDS ORDERED: VANCOMYCIN ORAL SOL 1,000 MG/10 ML BOTTLE PO SCH (11:00)
--- NOTE | 2016-07-08 11:02 | Brief Operative Note ---
Date of procedure: 07/08/16 Pre-op diagnosis: chronic diarrhea with h/o c. difficile colitis Post-op diagnosis: other (chronic diarrhea with no evidence of colitis up to 50 cm normal mucosa without inflammation or pseudomembranes) Procedure: FLEXIBLE SIGMOIDOSCOPY TO 50 CM Grafts/Implants: No Anesthesia: MAC Findings: NORMAL APPEARING COLON MUCOSA TO 50 CM DID NOT ADVANCE FURTHER DUE TO PROCTOPEXY Complications: none Surgeon: Solange Santos Specimens Removed/Pathology: none sent Condition: stable Disposition: same day
[2016-07-08] MEDS ORDERED: MAGNESIUM SULFATE 2 GM/50 ML BAG IV PRN (11:53)
[2016-07-08] MEDS ORDERED: BUTALB/ACETAMINOPHEN/CAFFEINE 1 TABLET PO PRN (11:53)
[2016-07-08] MEDS ORDERED: POTASSIUM CHLORIDE 20 MEQ PACKET PO PRN (11:53)
[2016-07-08] MEDS ORDERED: ACETAMINOPHEN 325 MG TABLET PO PRN (11:53)
[2016-07-08] MEDS: VANCOMYCIN ORAL SOL 1,000 MG/10 ML BOTTLE PO SCH ×2 (12:09→17:00)
[2016-07-08] MEDS: PIPERACILLIN SODIUM/TAZOBACTAM 3.375 GM in DEXTROSE 5% IN WATER 50 ML IV SCH ×2 (12:09→17:00)
[2016-07-08] MEDS: MONTELUKAST 10 MG TABLET PO SCH (20:44)
[2016-07-08] MEDS: ZOLPIDEM 5 MG TABLET PO PRN (20:58)
[2016-07-08] MEDS: ONDANSETRON ODT 4 MG TABLET SL PRN (20:58)
[2016-07-09] MEDS: VANCOMYCIN ORAL SOL 1,000 MG/10 ML BOTTLE PO SCH ×5 (00:12→23:19)
[2016-07-09] MEDS: PIPERACILLIN SODIUM/TAZOBACTAM 3.375 GM in DEXTROSE 5% IN WATER 50 ML IV SCH ×4 (00:12→17:32)
[2016-07-09 06:05] LABS: Mean Cell Volume 86.2 fL (80.0-100.0); Mean Corpuscular HGB Conc 32.9 g/dL (31.0-36.0); Mean Corpuscular Hemoglobin 28.4 pg (26.0-34.0); Platelet Count 380 K/mcL (140-440); RBC 3.48 M/mcL (4.00-5.20); Red Cell Distribution Width 16.9 % (11.5-14.5)
[2016-07-09] MEDS: 0.9 % SODIUM CHLORIDE 10 ML SYRINGE IV SCH ×3 (06:05→23:02)
[2016-07-09 06:25] LABS: ALT/SGPT 14 U/l (0-40); Albumin 2.9 gm/dL (3.2-5.2); Albumin/Globulin Ratio 0.9 (1.0-2.3); Alkaline Phosphatase 54 U/L (39-117); Bilirubin,Direct < 0.2 mg/dL (0.0-0.3); Blood Urea Nitrogen 4 mg/dl (8-23); Gamma Glutamyl Transpeptidase 33 U/L (5-36); Phosphorous 3.8 mg/dL (2.7-4.5); Uric Acid 1.7 mg/dL (2.5-8.0)
[2016-07-09 06:52] LABS: Anisocytosis 1+ (NONE SEEN); Band Neutrophils % 2 % (0-10); Eosinophils % (Manual) 8 % (0-7); Lymphocytes % 16 % (15-49); Monocytes % (Manual) 9 % (1-9); Platelet Estimate NORMAL (NORMAL); RBC Morphology ABNORM (NORMAL); Segmented Neutrophils % 65 % (38-78)
--- NOTE | 2016-07-09 07:01 | Echocardiogram Report ---
ECHOCARDIOGRAM: 2-D and M-mode echocardiography with cardiac Doppler and color flow imaging were performed with a [employer] MX. Indication is bacteremia/consider infective endocarditis. Overall size of the RA, RV, LA, and aortic root appeared normal. LV cavity size appeared high normal. Wall thickness appeared normal. Systolic performance appeared low normal. Estimated ejection fraction is 50-55%. The aortic valve appeared trileaflet and normal. There was no evidence for aortic stenosis or aortic regurgitation by Doppler interrogation. The mitral and tricuspid valves appeared unremarkable. No more than trivial mitral regurgitation was noted. Doppler interrogation of LV inflow disclosed normal early diastolic deceleration time and equal ''e'' and ''a'' wave amplitude. The pulmonic valve was not visualized. Pulmonary artery acceleration time appeared normal. There was no evidence for pulmonic stenosis or pulmonic regurgitation. Tricuspid regurgitation, probably moderate (2+), was demonstrated. No intracardiac shunting was appreciated. There was no evidence for pericardial effusion. The IVC was of normal diameter and showed normal respiratory variation. Calculated estimate of PA systolic pressure is mildly to moderately elevated at 40-45 mmHg. Sinus rhythm, rate 78, was present. CONCLUSION:Mild to moderate pulmonary hypertension. Note: No vegetations were identified. Transesophageal echocardiography is superior to transthoracic echocardiography in detecting and delineating cardiac vegetations. Since previous study 04/06/08, there appears to be improvement in cardiac performance. (See accompanying M-mode and Doppler reports for quantitation.) ECHOCARDIOGRAPHY M-MODE CALCULATIONS: HT: 63'' WT: 120 BSA: 1.56 m2 NORMALS AORTA: AORTIC ROOT 2.7 2.0-3.7 cm LEFT ATRIUM 3.6 1.9-4.0 cm MITRAL VALVE: EXCURSION 1.5 1.9-2.7 cm EPSS 0.5 <0.5 cm LT VENTRICLE: LVID (ED) 5.0 3.5-5.7 cm LVID (ES) 3.7 SEPTAL THICKNESS 0.8 0.6-1.1 cm SEPTAL EXCURSION 0.3 0.3-0.8 cm LVPW THICKNESS 1.0 0.6-1.1 cm LVPW EXCURSION 0.9 0.9-1.4 cm MINOR AXIS FS 2.6 25%-40% RT VENTRICLE: RVID (ED) 1.5 0.9-2.6 cm(up to 3cm if LLD) QUALITATIVE DOPPLER FLOW STUDIES MITRAL VALVE MR, probably trivial AORTIC VALVE -- TRICUSPID VALVE TR, probably moderate (2+) PULMONIC VALVE -- QUANTITATIVE DOPPLER FLOW STUDIES SAMPLE SITES VELOCITIES PEAK PRESSURE VALVE AREA and/or VALVE WINDOW (PEAK,M/SEC) DROP (GRADIENT) PRESSURE HALF-TIME MV (Diastole) 1.0 1.0 -- -- MV (Systole) 5.0 -- -- AO (Diastole) -- -- -- AO (Systole) 1.5 -- -- TV (Systole) 3.1 -- -- PV (Systole) 0.85 -- -- PV (Diastole) -- LWG:betina Job ID: [id number] Doc ID: [id number] Gabriele Dozier MD
[2016-07-09] MEDS: PANTOPRAZOLE 40 MG TABLET PO SCH ×2 (07:27→17:32)
[2016-07-09] MEDS: LEVOTHYROXINE 150 MCG TABLET PO SCH (07:28)
[2016-07-09] MEDS: morphine 30 MG TAB.SR.12H PO SCH ×2 (08:31→20:19)
[2016-07-09] MEDS: MAGNESIUM OXIDE 400 MG TABLET PO SCH (08:33)
[2016-07-09] MEDS: MULTIVIT,THER IRON,CA,FA & MIN 1 TABLET PO SCH (08:34)
[2016-07-09] MEDS: LIOTHYRONINE 5 MCG TABLET PO SCH (08:35)
[2016-07-09] MEDS: ESTRADIOL PO SCH (08:36)
[2016-07-09] MEDS: NORETHINDRONE ACET PO SCH (08:36)
[2016-07-09] MEDS: FLUTICASONE PROPIONATE SPRAY.NAS NS SCH ×2 (08:36→23:01)
[2016-07-09] MEDS: VANCOMYCIN 750 MG in 0.9 % SODIUM CHLORIDE 250 ML IV SCH ×2 (09:35→22:54)
--- NOTE | 2016-07-09 15:40 | Transfer Summary ---
Transfer Discharge Sum: Prov Patient information: Note initiated : 07/09/16 at 3:28 pm Service Date, if different from initiated Date: [] Patient: Amparo Briceno 70 y/o F admitted on 07/05/16 for Severe Symptomatic Hyponatremia along w/ Diarrhea. Chief Complaint: [] Date of admission: 07/05/16 14:54 Discharge Date: 07/09/16 Primary care physician: [f_Reg Prim Care Provider] Consults: 07/07/16 16:10 Consult to Physician [CONS] Routine Comment: Consulting Provider: Solange Jennings Reason For Exam: Physician to Consult Receiving physician/facility: Yonatan Christensen Transfer Discharge Sum: Diag - Discharge Diagnosis (1) Hyponatremia with extracellular fluid depletion Status: Acute Transfer Discharge Sum: Med - Medications Active and Home Medications: Home Medications magnesium oxide 400 mg capsule 300 mg PO .qd cap 02/21/15 [History Confirmed ] potassium gluconate 595 mg (99 mg) tablet 99 mg PO BID tab 02/21/15 [History Confirmed 07/05/16] fluticasone 200 mcg-vilanterol 25 mcg/dose powder for inhalation 1 each INHALATION .qdaily each 09/08/15 [History Confirmed 07/05/16] fluticasone 50 mcg/actuation nasal spray,suspension 1 spray INTRANASAL BID #16 g 03/08/16 [Rx Confirmed 07/05/16] wyblmjuzxd-lelrioxxknxiz-rynijvrn 50 mg-325 mg-40 mg tablet 1 tab-cap PO Q4H PRN #50 tab 04/09/16 [Rx Confirmed 07/05/16] omeprazole 20 mg capsule,delayed release 20 mg PO BID #180 cap 04/18/16 [Rx Confirmed 07/05/16] montelukast 10 mg tablet 10 mg PO QPM #90 tab 05/17/16 [Rx Confirmed 07/05/16] ondansetron 8 mg disintegrating tablet 8 mg PO TID PRN #90 tab 05/21/16 [Rx Confirmed 07/05/16] levothyroxine 150 mcg capsule 150 mcg PO QDAY 05/23/16 [History Confirmed ] liothyronine 25 mcg tablet 50 mcg PO QDAY #180 tab 06/17/16 [Rx Confirmed ] Meloxicam 15 mg PO BID 06/19/16 [History Confirmed 07/05/16] Polyethylene Glycol 3350 [Miralax] 17 gm PO HS 06/19/16 [History Confirmed 07/05] Sertraline [Zoloft] 100 mg PO HS 06/19/16 [History Confirmed 07/05/16] metroNIDAZOLE [Flagyl] 500 mg PO Q6 #60 tablet 06/22/16 [Rx Confirmed 07/05/16] estradiol-norethindrone acet 0.5 mg-0.1 mg tablet 1 tab PO QDAY #90 tab [Rx Confirmed 07/05/16] morphine ER 200 mg tablet,extended release 200 mg PO BID #60 tab 07/01/16 [Rx Confirmed 07/05/16] Active Medications Acetaminophen (Tylenol) 650 mg PO Q4-6HP PRN PRN Reason: PAIN/FEVER > 101 Acetaminophen/Butalbital/Caffeine (Fioricet) 1 tab PO Q4HP PRN PRN Reason: pain Fluticasone Propionate (Flonase) 1 spray NS BID [facility] Last Admin: 07/09/16 08:36 Dose: Not Given Hydromorphone HCl (Dilaudid) 1 mg IV Q4HP PRN PRN Reason: Pain Magnesium Sulfate (Magnesium Sulfate) 2 gm in 50 mls @ 50 mls/hr IV UD PRN PRN Reason: MG = or < 1.7 Last Infusion: 07/08/16 21:45 Dose: Infused Piperacillin Sod/Tazobactam (Sod 3.375 gm/ Dextrose) 50 mls @ 100 mls/hr IV Q6 [facility] Last Admin: 07/09/16 11:39 Dose: 100 mls/hr Vancomycin HCl 750 mg/ Sodium (Chloride) 250 mls @ 250 mls/hr IV Q12 [facility] Last Admin: 07/09/16 09:35 Dose: 150 mls/hr Iron Carb/Multivit/[place]/Folic Acid (Multivitamin W/Minerals) 1 tab PO DAILY [facility] Last Admin: 07/09/16 08:34 Dose: 1 tab Levothyroxine Sodium (Synthroid) 150 mcg PO QAMAC [facility] Last Admin: 07/09/16 07:28 Dose: 150 mcg Liothyronine Sodium (Cytomel) 50 mcg PO DAILY [facility] Last Admin: 07/09/16 08:35 Dose: 50 mcg Magnesium Oxide (Magnesium Oxide) 400 mg PO DAILY [facility] Last Admin: 07/09/16 08:33 Dose: 400 mg Montelukast Sodium (Singular) 10 mg PO QPM [facility] Last Admin: 07/08/16 20:44 Dose: 10 mg Morphine Sulfate (Ms Contin) 180 mg PO BID [facility] Last Admin: 07/09/16 08:31 Dose: 180 mg Ondansetron HCl (Zofran Odt) 8 mg SL TIDP PRN PRN Reason: Nausea And Vomiting Last Admin: 07/08/16 20:58 Dose: 8 mg Pantoprazole Sodium (Protonix) 40 mg PO BIDAC [facility] Last Admin: 07/09/16 07:27 Dose: 40 mg Estradiol/Norethindrone Acet [ Lopreeza] 0.5/0.1 Mg Tablet 1 dose PO QDAY [facility] Last Admin: 07/09/16 08:36 Dose: Not Given Fluticasone/Vilanterol [Breo Ellipta] 200/25 Mcg Inhaler 1 dose INH DAILY [facility] Last Admin: 07/09/16 08:36 Dose: Not Given Potassium Gluconate [Potassium] 99 Mg Tablet 1 dose PO BID [facility] Last Admin: 07/09/16 08:36 Dose: Not Given Potassium Chloride (Klor-Con) 40 meq PO DAILYP PRN PRN Reason: K+ < 3.5 Sodium Chloride (Saline Flush) 10 ml IV Q8 [facility] Last Admin: 07/09/16 14:14 Dose: Not Given Vancomycin HCl (Vancomycin Oral Pushpa) 250 mg PO Q6 [facility] Last Admin: 07/09/16 12:07 Dose: 250 mg Zolpidem Tartrate (Ambien) 5 mg PO HSP PRN PRN Reason: Insomnia Last Admin: 07/08/16 20:58 Dose: 5 mg Transfer Discharge Sum: Hosp Hospital course: DISCHARGE DIAGNOSIS * Strep Agalactiae bacteremia- 2 consecutive days () cultures positive sensitive to(Pen/cephalo). Unclear source. Echo- TTE no vegetation , No indwelling lines or ports. Surveillance cultures done . On Zosyn and vancomycin. Deescalate based on ID consult. Transfer patient for ID /Tagged WBC/ cards consult- Alma montes. BNo * Hypovolemic hyponatremia- secondary to solute loss from underlying diarrhea. sodium at 133. Improved from 122. * Diarrhea-recent C. difficile, repeat test negative twice. S/p 14 days flagyl. Noninfectious. howvere restated back on PO vanco in light of zosyn use for strep bacteremia * Severe weakness secondary to underlying hyponatremia- clinically improved, continuing physical therapy. * Hypothyroidism on thyroxine * Chronic pain on morphine ER * DVT prophylaxis on heparin Brief Hospital Course 07/05- patient admitted with severe symptomatic hyponatremia - sodium at 122 with weakness fatigue secondary to persistent diarrhea. Recent C. difficile status post 14 days of Flagyl treatment. Started on emperic oral vancomycin. Initial C. difficile negative in ER. Patient on every 4 sodium checks along with continued crystalloids replacement for solute loss and hypovolemic hyponatremia. urine osmolality appropriately low suggestive against SIADH. 07/06- continue crystalloids replacement. Sodium improved to 130/24 hours from 122. repeat C. difficile pending. No overnight fever chills. Patient more alert and lucid and improved fatigue. Tolerating diet. no other concerns expressed by nursing staff. no telemetry events. Continue physical therapy 07/07- patient is not better. Sodium at 128. Diarrhea improving. Persistent fatigue lethargic and weakness however improved since admission. Tolerating diet. Participate in physical therapy. No telemetry events. Overnight fever at 102, chills but no nausea vomiting or concerns per staff. White count normal. No SIRS. Transfer to medical floor. Possible discharge in 24 hours 07/08- patient doing well however 2 out of 2 cultures positive for gram-positive bacteria. Unclear source. Colonoscopy today. Suspect abscess however after discussion with surgeon dr jennings, he felt its unlikely the perineal fluid collection is infected and fluid is secondary to mesh placement. He recommended against perc drainage. Rule out endocarditis with Echocardiogram. Surveillance cultures positive. repeat in 24 hours. Started on antibiotic coverage on vancomycin And Zosyn. no overnight fever chills. continue source evaluation 07/09- case discussed with surgery and need for WBC scan and ID consult. Attempting to transfer to tertiary center for further eval. [facility] -dr mcfadden. Pt accepted for bacteremia eval/ID consult. Apprecuiate help. Patient informed of plan and transfer. Agreeable. - Time Spent with Patient Total time spent providing and/or coordinating transfer services: Greater than 30 minutes Transfer Discharge Sum: Exam - Constitutional Vitals: Vital Signs Temp Pulse Resp BP Pulse Ox 02/28/17 12:00 97.7 F 74 16 124/72 96 07/09/16 07:00 98.9 F 82 16 138/70 95 07/09/16 05:36 99.0 F 07/09/16 04:00 100.0 F H 101 H 16 151/83 92 07/09/16 00:00 99.4 F 88 16 149/82 90 07/08/16 19:35 98.4 F 94 H 16 122/66 95 07/08/16 16:00 98.9 F 75 18 136/79 98 Intake and Output 07/09/16 07/09/16 07/09/16 05:59 13:59 21:59 Intake Total 640 / 640 648 / 648 1088 / 1088 Balance 640 / 640 648 / 648 1088 / 1088 Intake: IV 300 / 300 50 / 50 Dextrose 5% in Water 50 50 / 50 50 / 50 ml @ 100 mls/hr IV Q6 ESTEFANIA with Zosyn 3.375 gm Rx#: [id number] Sodium Chloride 0.9% 250 250 / 250 ml @ 250 mls/hr IV Q12 ESTEFANIA with Vancomycin 750 mg Rx#:[id number] Oral 340 / 340 598 / 598 1088 / 1088 Other: Meal Lunch Percent of Meal Consumed 75% Feeding Ability Independent # Voids 1 1 # Bowel Movements 1 General appearance: no acute distress Additional comments: nopn labored brathing No anxiety No rash Non destended and non tender abdomen.. Transfer Discharge Sum: Data Procedures and tests throughout hospitalization: Pending Orders 07/07/16 01:50 Blood Culture Stat 07/07/16 16:10 Consult to Physician [CONS] Routine 07/08/16 09:13 Blood Culture Routine 07/08/16 10:07 Sputum Culture and Gram Stain Urgent 07/08/16 11:53 Acetaminophen [Tylenol] 650 mg PO Q4-6HP PRN Butalb/Acetaminophen/Caffeine [Fioricet] 1 tab PO Q4HP PRN HYDROmorphone [Dilaudid] 1 mg IV Q4HP PRN Magnesium Sulfate 2 gm in 50 ml IV UD Ondansetron HCl [Zofran Odt] 8 mg SL TIDP PRN Potassium Chloride [Klor-Con] 40 meq PO DAILYP PRN 07/08/16 12:00 Piperacillin Sodium/Tazobactam [Zosyn] 3.375 gm Dextrose 5% in Water 50 ml IV Q6 Vancomycin Oral Pushpa 250 mg PO Q6 07/08/16 14:00 0.9 % Sodium Chloride [Saline Flush] 10 ml IV Q8 07/08/16 17:00 Pantoprazole [Protonix] 40 mg PO BIDAC 07/08/16 21:00 Fluticasone Propionate [Flonase] 1 spray NS BID Montelukast [Singular] 10 mg PO QPM Patients Own Medication 1 dose PO BID Vancomycin 750 mg 0.9 % Sodium Chloride [Sodium Chloride 0.9%] 250 ml IV Q12 Zolpidem [Ambien] 5 mg PO HSP PRN morphine [Ms Contin] 180 mg PO BID 07/08/16 Lunch Regular Diet 07/09/16 07:30 Levothyroxine [Synthroid] 150 mcg PO QAMAC 07/09/16 08:47 Blood Culture Urgent 07/09/16 09:00 Liothyronine [Cytomel] 50 mcg PO DAILY Magnesium Oxide 400 mg PO DAILY Multivit,Ther Iron,Ca,FA & Min [Multivitamin W/Minerals] 1 tab PO DAILY Patients Own Medication 1 dose INH DAILY Patients Own Medication 1 dose PO QDAY Transfer Discharge Sum: A/P - Problem Maintenance (1) Hyponatremia with extracellular fluid depletion Status: Acute - Plan Functional capacity at transfer: independent ambulation Overall status at transfer: patient is progressing back to baseline Disposition: Xfer [facility] Quality Measure Queries - VTE Deep Vein Thrombosis/Pulmonary Embolism Present on Admission: No
[2016-07-09] MEDS: MONTELUKAST 10 MG TABLET PO SCH (20:19)
[2016-07-09] MEDS: ONDANSETRON ODT 4 MG TABLET SL PRN (20:25)
[2016-07-09] MEDS: MELOXICAM 7.5 MG TABLET PO SCH (22:45)
[2016-07-09] MEDS: ZOLPIDEM 5 MG TABLET PO PRN (22:45)
[2016-07-10] MEDS: PIPERACILLIN SODIUM/TAZOBACTAM 3.375 GM in DEXTROSE 5% IN WATER 50 ML IV SCH ×3 (01:57→12:39)
[2016-07-10] MEDS: VANCOMYCIN ORAL SOL 1,000 MG/10 ML BOTTLE PO SCH ×4 (05:29→22:58)
[2016-07-10] MEDS: 0.9 % SODIUM CHLORIDE 10 ML SYRINGE IV SCH ×3 (05:33→20:04)
[2016-07-10 06:38] LABS: ALT/SGPT 27 U/l (0-40); Albumin 3.3 gm/dL (3.2-5.2); Albumin/Globulin Ratio 0.9 (1.0-2.3); Alkaline Phosphatase 59 U/L (39-117); Bilirubin,Direct < 0.2 mg/dL (0.0-0.3); Blood Urea Nitrogen 3 mg/dl (8-23); Gamma Glutamyl Transpeptidase 37 U/L (5-36); Magnesium 1.9 mg/dL (1.6-2.5); Phosphorous 4.3 mg/dL (2.7-4.5); Uric Acid 1.6 mg/dL (2.5-8.0)
[2016-07-10] MEDS: LEVOTHYROXINE 150 MCG TABLET PO SCH (07:22)
[2016-07-10] MEDS: PANTOPRAZOLE 40 MG TABLET PO SCH ×2 (07:22→17:13)
[2016-07-10] MEDS: MELOXICAM 7.5 MG TABLET PO SCH ×2 (08:06→20:03)
[2016-07-10] MEDS: morphine 30 MG TAB.SR.12H PO SCH ×2 (08:07→20:02)
[2016-07-10] MEDS: MULTIVIT,THER IRON,CA,FA & MIN 1 TABLET PO SCH (08:07)
[2016-07-10] MEDS: MAGNESIUM OXIDE 400 MG TABLET PO SCH (08:09)
[2016-07-10] MEDS: VANCOMYCIN 750 MG in 0.9 % SODIUM CHLORIDE 250 ML IV SCH (08:09)
[2016-07-10 10:05] LABS: Mean Cell Volume 85.7 fL (80.0-100.0); Mean Corpuscular HGB Conc 32.2 g/dL (31.0-36.0); Mean Corpuscular Hemoglobin 27.6 pg (26.0-34.0); Platelet Count 427 K/mcL (140-440); RBC 3.79 M/mcL (4.00-5.20); Red Cell Distribution Width 16.4 % (11.5-14.5)
[2016-07-10] MEDS ORDERED: IOPAMIDOL 100 ML BOTTLE IJ ONE (10:13)
[2016-07-10] MEDS: NORETHINDRONE ACET PO SCH (10:34)
[2016-07-10] MEDS: ESTRADIOL PO SCH (10:34)
[2016-07-10] MEDS: FLUTICASONE PROPIONATE SPRAY.NAS NS SCH ×2 (10:34→20:04)
--- NOTE | 2016-07-10 10:35 | Cat Scan Report ---
CLINICAL INFORMATION: Reason for Exam:bacteremia- unclear source follow-up pelvic fluid collections COMPARISON: None. TECHNIQUE: Following injection of intravenous contrast the patient was scanned during the portal venous phase from the diaphragm through the symphysis pubis. Sagittal and coronal reformats were created.. FINDINGS: The liver is normal in size and homogeneous. There is chronic dilatation of the bile ducts. This is remain stable. Gallbladder is relatively small but there are no stones within the lumen. Spleen is normal in size and homogeneous. The pancreas, adrenals and kidneys are normal. There is a residual complex multi loculated fluid collection in the pelvis. The most inferior component lies posterior and lateral to the distal sigmoid and the rectum. It measures 1.7 x 3.8 cm and contains a couple bubbles of air. This continues to gradually improve. It measured 2.4 x 5.3 cm on 06/18/16. Adjacent to this there is a trace amount of free fluid deep in the pelvis, behind the distal sigmoid. There is a thin neck connecting the above-described fluid collection with a larger more multi loculated complex collection located anterior to the mid sacrum and extending to the right side. This measures grossly 4.0 x 6.3 cm. It measured approximately 5.3 x 6.8 cm on 06/18/16. There has been relatively little change in size of these fluid collections since 07/05/16. No new fluid collection has formed in the abdomen or pelvis. The oral contrast has passed through normal jejunum into the ileum without obstruction. The previously seen ileus has resolved. Urinary bladder is nonopacified but normally distended. There is no evidence residual rectal or bladder prolapse. IMPRESSION: Persistent complex multiloculated fluid collection in the pelvis. The presence of air suggests these are most likely abscesses. Interpreted and Authenticated by: Fabián Ortiz 07/10/16
[2016-07-10 11:00] LABS: Anisocytosis 1+ (NONE SEEN); Band Neutrophils % 1 % (0-10); Eosinophils % (Manual) 4 % (0-7); Lymphocytes % 13 % (15-49); Monocytes % (Manual) 12 % (1-9); Ovalocytes FEW (NONE SEEN); Platelet Estimate NORMAL (NORMAL); RBC Morphology ABNORM (NORMAL); Segmented Neutrophils % 70 % (38-78)
[2016-07-10] MEDS: LIOTHYRONINE 5 MCG TABLET PO SCH (12:37)
--- NOTE | 2016-07-10 15:59 | Internal Med Progress Note ---
Medical - PN: Subj Patient information: Note initiated : 07/10/16 at 3:55 pm Service Date, if different from initiated Date: [] Patient: Amparo Briceno 70 y/o F admitted on 07/05/16 for Severe Symptomatic Hyponatremia along w/ Diarrhea. Chief Complaint: [] Interval history: Brief Hospital Course 07/05- patient admitted with severe symptomatic hyponatremia - sodium at 122 with weakness fatigue secondary to persistent diarrhea. Recent C. difficile status post 14 days of Flagyl treatment. Started on emperic oral vancomycin. Initial C. difficile negative in ER. Patient on every 4 sodium checks along with continued crystalloids replacement for solute loss and hypovolemic hyponatremia. urine osmolality appropriately low suggestive against SIADH. 07/06- continue crystalloids replacement. Sodium improved to 130/24 hours from 122. repeat C. difficile pending. No overnight fever chills. Patient more alert and lucid and improved fatigue. Tolerating diet. no other concerns expressed by nursing staff. no telemetry events. Continue physical therapy 07/07- patient is not better. Sodium at 128. Diarrhea improving. Persistent fatigue lethargic and weakness however improved since admission. Tolerating diet. Participate in physical therapy. No telemetry events. Overnight fever at 102, chills but no nausea vomiting or concerns per staff. White count normal. No SIRS. Transfer to medical floor. Possible discharge in 24 hours 07/08- patient doing well however 2 out of 2 cultures positive for gram-positive bacteria. Unclear source. Colonoscopy today. Suspect abscess however after discussion with surgeon dr jennings, he felt its unlikely the perineal fluid collection is infected and fluid is secondary to mesh placement. He recommended against perc drainage. Rule out endocarditis with Echocardiogram. Surveillance cultures positive. repeat in 24 hours. Started on antibiotic coverage on vancomycin And Zosyn. no overnight fever chills. continue source evaluation 07/09- case discussed with surgery and need for WBC scan and ID consult. Attempting to transfer to tertiary center for further eval. Case discused with [facility] hospitalist -dr mcfadden. Pt accepted for bacteremia eval/ID consult. Apprecuiate help. Patient informed of plan and transfer. Agreeable. patient refused transfer to tertiary Center due to personal reasons and would like to be evaluated in the [facility] [facility]. We will attempt transfer coordination with [place] once infectious disease specialist available. 07/10-patient afebrile. No pain or fever chills nausea vomiting overnight. No concerns per staff. Strep agalactiae on cultures currently on antibiotics. Repeat CT scan abdomen shows multiple fluid collections likely abscesses however after discussing the surgery Dr. Jennings he does not feel these collections are abscesses. He recommended close outpatient follow-up with him and he will order serial weekly CT scans to evaluate interval resolution. PICC line placement Ordered. Antibiotics for at least 2 weeks. if infectious disease specialist is available in morning patient will be transferred to [place] otherwise she'll be discharge with outpatient follow-up with surgery and infectious disease specialist for outpatient workup and evaluation of duration of treatment given bacteremia. Sinuses cultures have since been negative thereby indicating clearing infection. Patient does not have any leukocytosis or obvious source at this time. - Constitutional Vitals: Vital Signs Temp Pulse Resp BP Pulse Ox 96.8 F L 82 16 125/66 97 07/10/16 11:53 07/10/16 11:53 07/10/16 11:53 07/10/16 11:53 07/10/16 11:53 Period Temp Pulse Resp BP Sys/Robb Pulse Ox Last 24 Hr 96.5 F-99.9 F 82-107 16-16 125-162/64-81 94-97 Intake and Output 07/10/16 07/10/16 07/10/16 05:59 13:59 21:59 Intake Total 600 / 600 350 / 350 Balance 600 / 600 350 / 350 Intake & Output: Intake & Output 07/10/16 07/10/16 07/10/16 05:59 13:59 21:59 Intake Total 600 / 600 350 / 350 Balance 600 / 600 350 / 350 Intake: IV 300 / 300 50 / 50 Dextrose 5% in Water 50 50 / 50 50 / 50 ml @ 100 mls/hr IV Q6 ESTEFANIA with Zosyn 3.375 gm Rx#: [id number] Sodium Chloride 0.9% 250 250 / 250 ml @ 250 mls/hr IV Q12 ESTEFANIA with Vancomycin 750 mg Rx#:[id number] Oral 300 / 300 300 / 300 Other: Meal Breakfast Percent of Meal Consumed 100% # Voids 1 2 # Bowel Movements 1 General appearance: cooperative, no acute distress Exam: alert oriented nonlabored breathing No fever chills No anxiety or agitation No lymphedema complains of persistent SI joint /back pain Medical - PN: Obj Da - Labs CBC & Chem 7: 07/10/16 09:05 07/10/16 04:30 Labs: Abnormal Lab Results 07/10/16 07/10/16 07/09/16 09:05 04:30 04:30 RBC 3.79 L Hgb 10.5 L Hct 32.4 L RDW 16.4 H MPV 6.6 L Lymphocytes % 13 L Monocytes % (Manual) 12 H Eosinophils % (Manual) RBC Morphology Abnorm A Polychromasia 1+ A Anisocytosis 1+ A Ovalocytes Few A ESR Sodium 131 L 132 L Chloride 93 L 95 L BUN 3 L 4 L Creatinine 0.5 L Uric Acid 1.6 L 1.7 L Calcium 8.4 L GGT 37 H Total Protein Albumin 2.9 L Albumin/Globulin Ratio 0.9 L 0.9 L 07/09/16 07/08/16 07/08/16 04:30 04:30 04:30 RBC 3.48 L Hgb 9.9 L Hct 30.0 L RDW 16.9 H MPV 6.6 L Lymphocytes % Monocytes % (Manual) Eosinophils % (Manual) 8 H RBC Morphology Abnorm A Polychromasia Anisocytosis 1+ A Ovalocytes ESR 87 H Sodium 131 L Chloride 92 L BUN 5 L Creatinine 0.4 L Uric Acid 2.1 L Calcium 8.1 L GGT Total Protein 5.5 L Albumin 2.9 L Albumin/Globulin Ratio 07/08/16 04:30 RBC 3.43 L Hgb 9.6 L Hct 29.6 L RDW 16.3 H MPV 6.9 L Lymphocytes % 11 L Monocytes % (Manual) 18 H Eosinophils % (Manual) RBC Morphology Abnorm A Polychromasia Anisocytosis 1+ A Ovalocytes ESR Sodium Chloride BUN Creatinine Uric Acid Calcium GGT Total Protein Albumin Albumin/Globulin Ratio Meds: Medications Acetaminophen (Tylenol) 650 mg PO Q4-6HP PRN PRN Reason: PAIN/FEVER > 101 Acetaminophen/Butalbital/Caffeine (Fioricet) 1 tab PO Q4HP PRN PRN Reason: pain Fluticasone Propionate (Flonase) 1 spray NS BID ESTEFANIA Last Admin: 07/10/16 10:34 Dose: Not Given Heparin Sodium (Porcine) (Heparin Flush) 2 ml IV Q12 ESTEFANIA Hydromorphone HCl (Dilaudid) 1 mg IV Q4HP PRN PRN Reason: Pain Last Admin: 07/09/16 20:19 Dose: 1 mg Magnesium Sulfate (Magnesium Sulfate) 2 gm in 50 mls @ 50 mls/hr IV UD PRN PRN Reason: MG = or < 1.7 Last Infusion: 07/08/16 21:45 Dose: Infused Piperacillin Sod/Tazobactam (Sod 3.375 gm/ Dextrose) 50 mls @ 100 mls/hr IV Q6 [facility] Last Admin: 07/10/16 12:39 Dose: 100 mls/hr Vancomycin HCl 750 mg/ Sodium (Chloride) 250 mls @ 250 mls/hr IV Q12 [facility] Last Admin: 07/10/16 08:09 Dose: 150 mls/hr Iron Carb/Multivit/Hymera/Folic Acid (Multivitamin W/Minerals) 1 tab PO DAILY [facility] Last Admin: 07/10/16 08:07 Dose: 1 tab Levothyroxine Sodium (Synthroid) 150 mcg PO QAMAC [facility] Last Admin: 07/10/16 07:22 Dose: 150 mcg Liothyronine Sodium (Cytomel) 50 mcg PO DAILY [facility] Last Admin: 07/10/16 12:37 Dose: 50 mcg Magnesium Oxide (Magnesium Oxide) 400 mg PO DAILY [facility] Last Admin: 07/10/16 08:09 Dose: 400 mg Meloxicam (Mobic) 15 mg PO BID [facility] Last Admin: 07/10/16 08:06 Dose: 15 mg Montelukast Sodium (Singular) 10 mg PO QPM [facility] Last Admin: 07/09/16 20:19 Dose: 10 mg Morphine Sulfate (Ms Contin) 180 mg PO BID [facility] Last Admin: 07/10/16 08:07 Dose: 180 mg Ondansetron HCl (Zofran Odt) 8 mg SL TIDP PRN PRN Reason: Nausea And Vomiting Last Admin: 07/09/16 20:25 Dose: 8 mg Pantoprazole Sodium (Protonix) 40 mg PO BIDAC [facility] Last Admin: 07/10/16 07:22 Dose: 40 mg Estradiol/Norethindrone Acet [ Lopreeza] 0.5/0.1 Mg Tablet 1 dose PO QDAY [facility] Last Admin: 07/10/16 10:34 Dose: Not Given Fluticasone/Vilanterol [Breo Ellipta] 200/25 Mcg Inhaler 1 dose INH DAILY [facility] Last Admin: 07/10/16 10:34 Dose: Not Given Potassium Gluconate [Potassium] 99 Mg Tablet 1 dose PO BID [facility] Last Admin: 07/10/16 10:35 Dose: Not Given Potassium Chloride (Klor-Con) 40 meq PO DAILYP PRN PRN Reason: K+ < 3.5 Sodium Chloride (Saline Flush) 10 ml IV Q8 [facility] Last Admin: 07/10/16 13:21 Dose: Not Given Vancomycin HCl (Vancomycin Oral Pushpa) 250 mg PO Q6 [facility] Last Admin: 07/10/16 12:38 Dose: 250 mg Zolpidem Tartrate (Ambien) 5 mg PO HSP PRN PRN Reason: Insomnia Last Admin: 07/09/16 22:45 Dose: 5 mg Medical - PN: A/P - Time Spent With Patient Total time spent is greater than 50% in coordination of care (as documented) at patient's floor/unit and/or counseling patient: 15 - 24 minutes (1) Hyponatremia with extracellular fluid depletion Status: Acute Assessment and plan: * strep agalactiae bacteremia-echo negative. continue Rocephin for at least 2 weeks. transfer to [place] for ID evaluation. * pelvic fluid collection on CT abdomen-unlikely abscess as per surgery. He recommends follow-up with surgery as outpatient and to coordinate decrease serial CT scans to assess interval change. Patient is 3 weeks post rectopexy. * Hypovolemic hyponatremia- clinically resolved. Sodium at 131 * Diarrhea-C. difficile negative twice. clinically resolved. Post limited sigmoidoscopy. Unremarkable * Severe weakness secondary to underlying hyponatremia- clinically resolved * Hypothyroidism on thyroxine * Chronic pain on morphin ER * DVT prophylaxis on heparin Plan * continue Rocephin * bacteremia workup including KYLER/ID consult/tertiary Center transfer in a.m. * IV Rocephin * Continue oral Vancomycin for CVA prophylaxis * pre-existing medical condition management as above Current Visit: Yes Medical - PN: Qual - Stroke Symptom Onset Unknown: No - VTE Deep Vein Thrombosis/Pulmonary Embolism Present on Admission: No
--- NOTE | 2016-07-10 16:57 | XRay Report ---
HISTORY: Reason for Exam:PICC PLACEMENT FINDINGS: The PICC line has been inserted through the left arm. The tip is in the mediastinum near the boundary of the superior vena cava and right atrium. No pneumothorax, pleural effusion or widening in the mediastinum are present. The lungs are clear and normally expanded. The heart size is normal. IMPRESSION: No complication following PICC line insertion Nursing was called with results Interpreted and Authenticated by: Fabián Ortiz 07/10/16
[2016-07-10] MEDS: cefTRIAXone 2 GM in DEXTROSE 5% IN WATER 50 ML IV SCH (17:17)
[2016-07-10] MEDS ORDERED: LOPERAMIDE (PP) 2MG TABLET (#12) PO PRN (19:37)
[2016-07-10] MEDS ORDERED: LOPERAMIDE 2 MG CAPSULE PO ONE (19:45)
[2016-07-10] MEDS: MONTELUKAST 10 MG TABLET PO SCH (20:02)
[2016-07-10] MEDS: LOPERAMIDE 2 MG CAPSULE PO PRN (22:58)
[2016-07-10] MEDS: ZOLPIDEM 5 MG TABLET PO PRN (22:58)
[2016-07-11] MEDS: LOPERAMIDE 2 MG CAPSULE PO PRN ×5 (03:50→20:56)
[2016-07-11] MEDS: ONDANSETRON ODT 4 MG TABLET SL PRN (03:50)
[2016-07-11] MEDS: 0.9 % SODIUM CHLORIDE 10 ML SYRINGE IV SCH ×3 (05:02→23:30)
[2016-07-11] MEDS: VANCOMYCIN ORAL SOL 1,000 MG/10 ML BOTTLE PO SCH ×3 (05:43→18:21)
[2016-07-11] MEDS: PANTOPRAZOLE 40 MG TABLET PO SCH ×2 (07:15→16:55)
[2016-07-11] MEDS: LEVOTHYROXINE 150 MCG TABLET PO SCH (07:15)
[2016-07-11] MEDS: MAGNESIUM OXIDE 400 MG TABLET PO SCH (08:19)
[2016-07-11] MEDS: MULTIVIT,THER IRON,CA,FA & MIN 1 TABLET PO SCH (08:19)
[2016-07-11] MEDS: MELOXICAM 7.5 MG TABLET PO SCH ×2 (08:19→20:32)
[2016-07-11] MEDS: LIOTHYRONINE 5 MCG TABLET PO SCH (08:20)
[2016-07-11] MEDS: cefTRIAXone 2 GM in DEXTROSE 5% IN WATER 50 ML IV SCH (08:21)
[2016-07-11] MEDS: morphine 30 MG TAB.SR.12H PO SCH ×2 (08:21→20:31)
[2016-07-11] MEDS: FLUTICASONE PROPIONATE SPRAY.NAS NS SCH ×2 (08:21→21:43)
[2016-07-11] MEDS: ESTRADIOL PO SCH (08:22)
[2016-07-11] MEDS: NORETHINDRONE ACET PO SCH (08:22)
--- NOTE | 2016-07-11 17:31 | Internal Med Progress Note ---
Medical - PN: Subj Patient information: Note initiated : 07/11/16 at 5:27 pm Service Date, if different from initiated Date: [] Patient: Amparo Briceno 70 y/o F admitted on 07/05/16 for Severe Symptomatic Hyponatremia along w/ Diarrhea. Chief Complaint: [] Interval history: Brief Hospital Course 07/05- patient admitted with severe symptomatic hyponatremia - sodium at 122 with weakness fatigue secondary to persistent diarrhea. Recent C. difficile status post 14 days of Flagyl treatment. Started on emperic oral vancomycin. Initial C. difficile negative in ER. Patient on every 4 sodium checks along with continued crystalloids replacement for solute loss and hypovolemic hyponatremia. urine osmolality appropriately low suggestive against SIADH. 07/06- continue crystalloids replacement. Sodium improved to 130/24 hours from 122. repeat C. difficile pending. No overnight fever chills. Patient more alert and lucid and improved fatigue. Tolerating diet. no other concerns expressed by nursing staff. no telemetry events. Continue physical therapy 07/07- patient is not better. Sodium at 128. Diarrhea improving. Persistent fatigue lethargic and weakness however improved since admission. Tolerating diet. Participate in physical therapy. No telemetry events. Overnight fever at 102, chills but no nausea vomiting or concerns per staff. White count normal. No SIRS. Transfer to medical floor. Possible discharge in 24 hours 07/08- patient doing well however 2 out of 2 cultures positive for gram-positive bacteria. Unclear source. Colonoscopy today. Suspect abscess however after discussion with surgeon dr jennings, he felt its unlikely the perineal fluid collection is infected and fluid is secondary to mesh placement. He recommended against perc drainage. Rule out endocarditis with Echocardiogram. Surveillance cultures positive. repeat in 24 hours. Started on antibiotic coverage on vancomycin And Zosyn. no overnight fever chills. continue source evaluation 07/09- case discussed with surgery and need for WBC scan and ID consult. Attempting to transfer to tertiary center for further eval. Case discused with [facility] hospitalist -dr mcfadden. Pt accepted for bacteremia eval/ID consult. Apprecuiate help. Patient informed of plan and transfer. Agreeable. patient refused transfer to tertiary Center due to personal reasons and would like to be evaluated in the [place]. We will attempt transfer coordination with [place] once infectious disease specialist available. 07/10-patient afebrile. No pain or fever chills nausea vomiting overnight. No concerns per staff. Strep agalactiae on cultures currently on antibiotics. Repeat CT scan abdomen shows multiple fluid collections likely abscesses however after discussing the surgery Dr. Jennings he does not feel these collections are abscesses. He recommended close outpatient follow-up with him and he will order serial weekly CT scans to evaluate interval resolution. PICC line placement Ordered. Antibiotics for at least 2 weeks. if infectious disease specialist is available in morning patient will be transferred to [place] otherwise she'll be discharge with outpatient follow-up with surgery and infectious disease specialist for outpatient workup and evaluation of duration of treatment given bacteremia. Sinuses cultures have since been negative thereby indicating clearing infection. Patient does not have any leukocytosis or obvious source at this time. 07/11- no beds available at [place]. ID specialist not available either. Plandiscussed with patient. Will discharge with 3 weeks IV Rocephin and follow up with infectious disease specialist as outpatient along with Dr. Jennings surgery. Patient will have weekly follow-up with surgery along with CT scans for interval evaluation of pelvic fluid collection along with blood work to evaluate clearance of bacteremia. - Constitutional Vitals: Vital Signs Temp Pulse Resp BP Pulse Ox 97.9 F 79 16 127/79 96 07/11/16 12:00 07/11/16 12:00 07/11/16 12:00 07/11/16 12:00 07/11/16 12:00 Period Temp Pulse Resp BP Sys/Robb Pulse Ox Last 24 Hr 97.6 F-99.4 F 79-92 16-18 122-165/71-95 95-97 Intake and Output 07/11/16 07/11/16 07/11/16 05:59 13:59 21:59 Intake Total 1130 / 1130 290 / 290 300 / 300 Balance 1130 / 1130 290 / 290 300 / 300 Weight 119 lb 8 oz Patient Weight 07/12/16 05:59 Weight 119 lb 8 oz Intake & Output: Intake & Output 07/11/16 07/11/16 07/11/16 05:59 13:59 21:59 Intake Total 1130 / 1130 290 / 290 300 / 300 Balance 1130 / 1130 290 / 290 300 / 300 Weight 119 lb 8 oz Intake: IV 50 / 50 Dextrose 5% in Water 50 50 / 50 ml @ 100 mls/hr IV Q24H ESTEFANIA with Rocephin 2 gm Rx #:[id number] Oral 1130 / 1130 240 / 240 300 / 300 Other: Meal Breakfast Lunch Percent of Meal Consumed 75% 100% Feeding Ability Independent Independent # Voids 1 1 # Bowel Movements 1 1 General appearance: cooperative, no acute distress Exam: ambulating alert oriented Nonlabored breathing Medical - PN: Obj Da - Labs CBC & Chem 7: 07/10/16 09:05 07/10/16 04:30 Labs: Abnormal Lab Results 07/10/16 07/10/16 07/09/16 09:05 04:30 04:30 RBC 3.79 L Hgb 10.5 L Hct 32.4 L RDW 16.4 H MPV 6.6 L Lymphocytes % 13 L Monocytes % (Manual) 12 H Eosinophils % (Manual) RBC Morphology Abnorm A Polychromasia 1+ A Anisocytosis 1+ A Ovalocytes Few A Sodium 131 L 132 L Chloride 93 L 95 L BUN 3 L 4 L Creatinine 0.5 L Uric Acid 1.6 L 1.7 L Calcium 8.4 L GGT 37 H Albumin 2.9 L Albumin/Globulin Ratio 0.9 L 0.9 L 07/09/16 04:30 RBC 3.48 L Hgb 9.9 L Hct 30.0 L RDW 16.9 H MPV 6.6 L Lymphocytes % Monocytes % (Manual) Eosinophils % (Manual) 8 H RBC Morphology Abnorm A Polychromasia Anisocytosis 1+ A Ovalocytes Sodium Chloride BUN Creatinine Uric Acid Calcium GGT Albumin Albumin/Globulin Ratio Meds: Medications Acetaminophen (Tylenol) 650 mg PO Q4-6HP PRN PRN Reason: PAIN/FEVER > 101 Acetaminophen/Butalbital/Caffeine (Fioricet) 1 tab PO Q4HP PRN PRN Reason: pain Fluticasone Propionate (Flonase) 1 spray NS BID [facility] Last Admin: 07/11/16 08:21 Dose: Not Given Heparin Sodium (Porcine) (Heparin Flush) 2 ml IV Q12 ESTEFANIA Last Admin: 07/11/16 08:21 Dose: 2 ml Hydromorphone HCl (Dilaudid) 1 mg IV Q4HP PRN PRN Reason: Pain Last Admin: 07/09/16 20:19 Dose: 1 mg Magnesium Sulfate (Magnesium Sulfate) 2 gm in 50 mls @ 50 mls/hr IV UD PRN PRN Reason: MG = or < 1.7 Last Infusion: 07/08/16 21:45 Dose: Infused Ceftriaxone Sodium 2 gm/ (Dextrose) 50 mls @ 100 mls/hr IV Q24H [facility] Last Infusion: 07/11/16 09:00 Dose: Infused Iron Carb/Multivit/[place]/Folic Acid (Multivitamin W/Minerals) 1 tab PO DAILY [facility] Last Admin: 07/11/16 08:19 Dose: 1 tab Levothyroxine Sodium (Synthroid) 150 mcg PO QAMAC [facility] Last Admin: 07/11/16 07:15 Dose: 150 mcg Liothyronine Sodium (Cytomel) 50 mcg PO DAILY [facility] Last Admin: 07/11/16 08:20 Dose: 50 mcg Loperamide HCl (Imodium) 2 mg PO PRN PRN PRN Reason: Diarrhea Last Admin: 07/11/16 16:22 Dose: 2 mg Magnesium Oxide (Magnesium Oxide) 400 mg PO DAILY [facility] Last Admin: 07/11/16 08:19 Dose: 400 mg Meloxicam (Mobic) 15 mg PO BID [facility] Last Admin: 07/11/16 08:19 Dose: 15 mg Montelukast Sodium (Singular) 10 mg PO QPM [facility] Last Admin: 07/10/16 20:02 Dose: 10 mg Morphine Sulfate (Ms Contin) 180 mg PO BID [facility] Last Admin: 07/11/16 08:21 Dose: 180 mg Ondansetron HCl (Zofran Odt) 8 mg SL TIDP PRN PRN Reason: Nausea And Vomiting Last Admin: 07/11/16 03:50 Dose: 8 mg Pantoprazole Sodium (Protonix) 40 mg PO BIDAC [facility] Last Admin: 07/11/16 16:55 Dose: 40 mg Estradiol/Norethindrone Acet [ Lopreeza] 0.5/0.1 Mg Tablet 1 dose PO QDAY [facility] Last Admin: 07/11/16 08:22 Dose: Not Given Fluticasone/Vilanterol [Breo Ellipta] 200/25 Mcg Inhaler 1 dose INH DAILY [facility] Last Admin: 07/11/16 08:22 Dose: Not Given Potassium Gluconate [Potassium] 99 Mg Tablet 1 dose PO BID [facility] Last Admin: 07/11/16 08:22 Dose: Not Given Potassium Chloride (Klor-Con) 40 meq PO DAILYP PRN PRN Reason: K+ < 3.5 Sodium Chloride (Saline Flush) 10 ml IV Q8 [facility] Last Admin: 07/11/16 15:32 Dose: 10 ml Vancomycin HCl (Vancomycin Oral Pushpa) 250 mg PO Q6 [facility] Last Admin: 07/11/16 11:29 Dose: 250 mg Zolpidem Tartrate (Ambien) 5 mg PO HSP PRN PRN Reason: Insomnia Last Admin: 07/10/16 22:58 Dose: 5 mg Medical - PN: A/P - Time Spent With Patient Total time spent is greater than 50% in coordination of care (as documented) at patient's floor/unit and/or counseling patient: 15 - 24 minutes (1) Hyponatremia with extracellular fluid depletion Status: Acute Assessment and plan: * Strep agalactiae bacteremia- transthoracic echo negative. continue Rocephin for at least 3 weeks. discharge in a.m. if unable to transfer to [place] with outpatient follow-up with infectious disease specialist/surgery * Pelvic fluid collection on CT abdomen-3 weeks postoperative rectopexy. Unlikely abscess as per Dr. Jennings's general surgeon. He recommends follow-up with him as outpatient and to coordinate serial CT scans to assess interval change pelvic fluid collection. * Hypovolemic hyponatremia- clinically resolved. Sodium at 131 * Diarrhea-C. difficile negative twice. clinically resolved. Post limited sigmoidoscopy. Unremarkable. Continue oral vancomycin * Severe weakness secondary to underlying hyponatremia- clinically resolved * Hypothyroidism on thyroxine * Chronic pain on morphin ER * DVT prophylaxis on heparin Plan * continue Rocephin for 3 weeks * bacteremia workup including KYLER/ID consult/tertiary Center transfer else outpatient follow-up with ID surgery. Patient refused transfer to [facility]. * oral vancomycin for C. difficile prophylaxis * pre-existing medical condition management as above Current Visit: Yes Medical - PN: Qual - Stroke Symptom Onset Unknown: No - VTE Deep Vein Thrombosis/Pulmonary Embolism Present on Admission: No
[2016-07-11] MEDS: MONTELUKAST 10 MG TABLET PO SCH (20:32)
[2016-07-11] MEDS: ZOLPIDEM 5 MG TABLET PO PRN (20:56)
[2016-07-12] MEDS: VANCOMYCIN ORAL SOL 1,000 MG/10 ML BOTTLE PO SCH ×3 (00:11→11:44)
[2016-07-12] MEDS: 0.9 % SODIUM CHLORIDE 10 ML SYRINGE IV SCH (05:40)
[2016-07-12] MEDS: LEVOTHYROXINE 150 MCG TABLET PO SCH (07:36)
[2016-07-12] MEDS: PANTOPRAZOLE 40 MG TABLET PO SCH (07:36)
[2016-07-12] MEDS: FLUTICASONE PROPIONATE SPRAY.NAS NS SCH (07:56)
[2016-07-12] MEDS: NORETHINDRONE ACET PO SCH (07:56)
[2016-07-12] MEDS: ESTRADIOL PO SCH (07:56)
[2016-07-12] MEDS: LIOTHYRONINE 5 MCG TABLET PO SCH (08:28)
[2016-07-12] MEDS: MULTIVIT,THER IRON,CA,FA & MIN 1 TABLET PO SCH (08:29)
[2016-07-12] MEDS: MELOXICAM 7.5 MG TABLET PO SCH (08:29)
[2016-07-12] MEDS: MAGNESIUM OXIDE 400 MG TABLET PO SCH (08:30)
[2016-07-12] MEDS: cefTRIAXone 2 GM in DEXTROSE 5% IN WATER 50 ML IV SCH (08:30)
[2016-07-12] MEDS: morphine 30 MG TAB.SR.12H PO SCH (08:30)
[2016-07-12] MEDS ORDERED: ONDANSETRON 4 MG/2 ML VIAL IV PRN (09:18)
[2016-07-12] MEDS: LOPERAMIDE 2 MG CAPSULE PO PRN (09:23)
--- NOTE | 2016-07-12 09:36 | Discharge Summary ---
Medical - DS: Prov Patient information: Note initiated : 07/12/16 at 9:33 am Service Date, if different from initiated Date: [] Patient: Amparo Briceno 70 y/o F admitted on 07/05/16 for Severe Symptomatic Hyponatremia along w/ Diarrhea. Chief Complaint: [] Date of admission: 07/05/16 14:54 Discharge date: 07/12/16 Primary care physician: [f_Reg Prim Care Provider] Consults: 07/07/16 16:10 Consult to Physician [CONS] Routine Comment: Consulting Provider: Solange Santos Reason For Exam: Physician to Consult Medical - DS: Meds - Discharge Medications Prescriptions: cefTRIAXone [Rocephin] 2 gm IV Q24H #21 vial Active and Home Medications: Home Medications magnesium oxide 400 mg capsule 300 mg PO .qd cap 02/21/15 [History Confirmed Last Taken 07/04/16] potassium gluconate 595 mg (99 mg) tablet 99 mg PO BID tab 02/21/15 [History Confirmed 07/05/16 Last Taken 07/04/16] fluticasone 200 mcg-vilanterol 25 mcg/dose powder for inhalation 1 each INHALATION .qdaily each 09/08/15 [History Confirmed 07/05/16 Last Taken ] fluticasone 50 mcg/actuation nasal spray,suspension 1 spray INTRANASAL BID #16 g 03/08/16 [Rx Confirmed 07/05/16 Last Taken 07/04/16] nirgnleziw-kcuwqkqewtjmr-vynnafzh 50 mg-325 mg-40 mg tablet 1 tab-cap PO Q4H PRN #50 tab 04/09/16 [Rx Confirmed 07/05/16 Last Taken 06/10/16] omeprazole 20 mg capsule,delayed release 20 mg PO BID #180 cap 04/18/16 [Rx Confirmed 07/05/16 Last Taken 07/04/16] montelukast 10 mg tablet 10 mg PO QPM #90 tab 05/17/16 [Rx Confirmed 07/05/16 Last Taken 07/04/16] ondansetron 8 mg disintegrating tablet 8 mg PO TID PRN #90 tab 05/21/16 [Rx Confirmed 07/05/16 Last Taken 07/04/16] levothyroxine 150 mcg capsule 150 mcg PO QDAY 05/23/16 [History Confirmed Last Taken 07/04/16] liothyronine 25 mcg tablet 50 mcg PO QDAY #180 tab 06/17/16 [Rx Confirmed Last Taken 07/04/16] Meloxicam 15 mg PO BID 06/19/16 [History Confirmed 07/05/16 Last Taken 07/04/16] Polyethylene Glycol 3350 [Miralax] 17 gm PO HS 06/19/16 [History Confirmed 07/05 Last Taken 06/18/16] Sertraline [Zoloft] 100 mg PO HS 06/19/16 [History Confirmed 07/05/16 Last Taken 07/04/16] estradiol-norethindrone acet 0.5 mg-0.1 mg tablet 1 tab PO QDAY #90 tab [Rx Confirmed 07/05/16 Last Taken 07/04/16] morphine ER 200 mg tablet,extended release 200 mg PO BID #60 tab 07/01/16 [Rx Confirmed 07/05/16 Last Taken 07/04/16] Vancomycin Oral Pushpa 250 mg PO Q6 15 days #60 dose bottle 07/12/16 [Rx Last Taken Unknown] cefTRIAXone [Rocephin] 2 gm IV Q24H #21 vial 07/12/16 [Rx Last Taken Unknown] Medical - DS: Hosp Hospital course: DISCHARGE DIAGNOSIS * Strep agalactiae bacteremia- transthoracic echo negative along with CT chest. CT abdomen shows pelvic fluid collection which as per surgeon Dr. Santos's is unlikely an abscess. Continue Rocephin for at least additional 3 weeks to complete a four-week course. Discharge in follow-up with infectious disease specialist/PCP/surgery Dr. Santos. * Pelvic fluid collection on CT abdomen-3 weeks postoperative rectopexy. Unlikely abscess as per Dr. Santos's general surgeon. He recommends follow-up with him as outpatient and to coordinate serial CT scans to assess interval change pelvic fluid collection. * Hypovolemic hyponatremia- clinically resolved. Sodium at 131 * Diarrhea-resolved. Recent C. difficile however repeat C. difficile negative twice. Post unremarkable limited sigmoidoscopy. Continue oral vancomycin for additional 2 weeks * Severe weakness secondary to underlying hyponatremia- clinically resolved. Ongoing physical therapy and ambulating * Hypothyroidism remained stable on home dose thyroxine * Chronic SI joint pain on morphine ER. Outpatient follow-up with pain clinic forevaluation. BRIEF HOSPITAL COURSE 07/05- patient admitted with severe symptomatic hyponatremia - sodium at 122 with weakness fatigue secondary to persistent diarrhea. Recent C. difficile status post 14 days of Flagyl treatment. Started on emperic oral vancomycin. Initial C. difficile negative in ER. Patient on every 4 sodium checks along with continued crystalloids replacement for solute loss and hypovolemic hyponatremia. urine osmolality appropriately low suggestive against SIADH. 07/06- continue crystalloids replacement. Sodium improved to 130/24 hours from 122. repeat C. difficile pending. No overnight fever chills. Patient more alert and lucid and improved fatigue. Tolerating diet. no other concerns expressed by nursing staff. no telemetry events. Continue physical therapy 07/07- patient is not better. Sodium at 128. Diarrhea improving. Persistent fatigue lethargic and weakness however improved since admission. Tolerating diet. Participate in physical therapy. No telemetry events. Overnight fever at 102, chills but no nausea vomiting or concerns per staff. White count normal. No SIRS. Transfer to medical floor. Possible discharge in 24 hours 07/08- patient doing well however 2 out of 2 cultures positive for gram-positive bacteria. Unclear source. Colonoscopy today. Suspect abscess however after discussion with surgeon dr santos, he felt its unlikely the perineal fluid collection is infected and fluid is secondary to mesh placement. He recommended against perc drainage. Rule out endocarditis with Echocardiogram. Surveillance cultures positive. repeat in 24 hours. Started on antibiotic coverage on vancomycin And Zosyn. no overnight fever chills. continue source evaluation 07/09- case discussed with surgery and need for WBC scan and ID consult. Attempting to transfer to tertiary center for further eval. Case discused with [facility] Hospitalist -dr mcfadden. Pt accepted for bacteremia eval/ID consult. Apprecuiate help. Patient informed of plan and transfer. Agreeable. patient refused transfer to tertiary [place] due to personal reasons and would like to be evaluated in the [place]. We will attempt transfer coordination with [facility] once infectious disease specialist available. 07/10-patient afebrile. No pain or fever chills nausea vomiting overnight. No concerns per staff. Strep agalactiae on cultures currently on antibiotics. Repeat CT scan abdomen shows multiple fluid collections likely abscesses however after discussing the surgery Dr. Santos he does not feel these collections are abscesses. He recommended close outpatient follow-up with him and he will order serial weekly CT scans to evaluate interval resolution. PICC line placement Ordered. Antibiotics for at least 2 weeks. if infectious disease specialist is available in morning patient will be transferred to [place] otherwise she'll be discharge with outpatient follow-up with surgery and infectious disease specialist for outpatient workup and evaluation of duration of treatment given bacteremia. Sinuses cultures have since been negative thereby indicating clearing infection. Patient does not have any leukocytosis or obvious source at this time. 07/11- no beds available at [facility]. ID specialist not available either. Plandiscussed with patient. Will discharge with 3 weeks IV Rocephin and follow up with infectious disease specialist as outpatient along with Dr. Santos surgery. Patient will have weekly follow-up with surgery along with CT scans for interval evaluation of pelvic fluid collection along with blood work to evaluate clearance of bacteremia. 07/12- Discharging patient on outpatient Rocephin for additional 21 days to complete a 30 day course. PICC line care instructions provided. Scheduled outpatient appointment with Dr. Santos surgery /Dr. Blake [facility] specialist and pain clinic for SI joint injection. patient will require weekly follow-up with Dr. Santos with weekly interval CTs to evaluate for pelvic fluid collection clearance. also follow with infectious disease specialist to evaluate secondary source of bacteremia and assess duration of antibiotics. extensive workup to [place] has been negative including trans thoracic echocardiogram CT scans chest/abdomen other than postoperative pelvic fluid collection which as per surgeon is unlikely an abscess. patient has been clinically stable afebrile with no leukocytosis. She has demonstrated clearance of bacteremia with multiple serial surveillance cultures negative from the and 09 July. Her sodium has normalized 131. Discharge with detailed instructions as below. Discharge diagnosis: strep agalactiae bacteremia, symptomatic hypernatremia - Time Spent with Patient Total time spent providing and/or coordinating discharge services: Greater than 30 minutes Medical - DS: Exam - Constitutional Vitals: Vital Signs Temp Pulse Resp BP BP Pulse Ox 07/12/16 09:28 138/68 07/12/16 08:46 98.6 F 108 H 18 170/99 98 07/12/16 07:45 18 96 07/12/16 04:00 98.5 F 86 18 142/78 96 07/12/16 00:00 98.7 F 95 H 16 128/82 95 07/11/16 21:04 99.5 F 91 H 16 118/80 95 07/11/16 16:00 99.2 F 85 16 118/78 93 07/11/16 12:00 97.9 F 79 16 127/79 96 Intake and Output 07/11/16 07/12/16 07/12/16 21:59 05:59 13:59 Intake Total 1260 / 1260 240 / 240 Output Total 200 / 200 Balance 1260 / 1260 240 / 240 -200 / -200 Intake: Oral 1260 / 1260 240 / 240 Output: Emesis 200 / 200 Other: Meal Dinner Breakfast Percent of Meal Consumed 100% 50% Feeding Ability Independent Assist with Tray Set Up # Voids 1 1 # Bowel Movements 1 Weight 120 lb 8 oz Medical - DS: Data Labs on day of discharge: Preliminary micro results at discharge 07/09/16 08:38 Blood Culture - Preliminary Blood 07/09/16 08:47 Blood Culture - Preliminary Blood 07/08/16 09:13 Blood Culture - Preliminary Blood 07/08/16 09:05 Blood Culture - Preliminary Blood Strep agalactiae - (group b) 07/07/16 01:50 Blood Culture - Preliminary Blood Strep agalactiae - (group b) 07/07/16 01:45 Blood Culture - Preliminary Blood Strep agalactiae - (group b) Medical - DS: A/P - Patient/Caregiver Discharge Instructions Activity: increase activity as tolerated Diet: Regular Diet Additional Instructions: On discharge patient will need Weekly CT scans in light of pelvicfluid collection Weekly f/u appointments with Dr Santos for evaluation of Streptococcus agalactiae bacteremia/pelvic fluid collection Follow-up PCP in 5 days Follow-up with infectious disease specialist Dr. JAMES within 1 week for review of Streptococcus agalactiae bacteremia and assessment of antibiotic duration. follow-up with pain clinic as scheduled for SI joint pain evaluation I recommend [facility] to check CBC BMP as a posthospital follow-up Antibiotics for 3 weeks IV Rocephin. If possible scheduled [facility] health continue oral vancomycin for additional 2 weeks as prophylaxis for recent C. difficile. PICC line care Return to ER if worsening fever chills shortness of breath, diarrhea, bleeding Review risk and side effect profile of medications including antibiotics. Side effect may include mild to severe reaction including rash, diarrhea, cdiff and even which can be prevented by close follow-up with PCP and monitoring for side effects Continue diet and activity as advised Discussed importance of medication adherence Please review medication list with patient prior to discharge Please schedule follow-up with PCP/Providers prior to discharge and provide printouts Portions of this chart may have been created with [employer] voice recognition software. Occasional wrong-word or ?sound-like? substitutions may have occurred due to the inherent limitations of voice recognition software. Please read the chart carefully and recognize, using context, where the substitutions have occurred. CC- PCP Prescriptions: cefTRIAXone [Rocephin] 2 gm IV Q24H #21 vial - Problem Maintenance (1) Hyponatremia with extracellular fluid depletion Status: Acute - Follow up Plan Follow up with: Stephen Munroe MD [Primary Care Provider] - Mignon Waller MD [Physician] - 07/16/16 1:00 pm Disposition: Home, Self-Care Prognosis: Fair Rehab Potential: Fair I certify that the patient requires SNF services: No Overall status at discharge: patient is progressing back to baseline Medical - DS: Qual - VTE Deep Vein Thrombosis/Pulmonary Embolism Present on Admission: No
--- NOTE | 2016-07-22 09:50 | Operative Note ---
DATE OF OPERATION: 07/08/2016 PREOPERATIVE DIAGNOSIS: Chronic diarrhea with history of clostridium difficile colitis. POSTOPERATIVE DIAGNOSIS: Chronic diarrhea with no evidence of colitis up to 50 cm with normal mucosa without inflammation of pseudomembrane. PROCEDURE: Flexible sigmoidoscopy to 50 cm. SURGEON: Solange Santos MD FINDINGS: Normal appearing colonic mucosa up to 50 cm. The scope was not advanced passed 50 cm because of acute angulation due to proctopexy. DESCRIPTION OF PROCEDURE: Under general anesthesia, the patient turned to the left lateral decubitus position. Inspection and digital examination revealed a very lax anal sphincter with some return of anal tone. Patient had a history of previous rectal prolapse of a chronic nature and is status post proctopexy. The scope was introduced without difficulty. The rectal and distal sigmoid mucosa appear to be normal. There was acute angulation of the colon at 50 cm and was maximum insufflation and maneuvering of the scope I was then able to get passed this point. This was due to further fixation at about 20 cm from the proctopexy. It was my concern that since the proctopexy was relatively new further advancement might lead to perforation or other injury. It was elected not to proceed further since the last 50 cm did not show any inflammation, it was unlikely that there was any significant inflammation left. The scope was gradually withdrawn. The patient tolerated the procedure well. She was awakened and transferred to the Post-Anesthetic Care Unit in satisfactory condition. LCS:betina Job ID: [id number] Doc ID: [id number] Solange Santos M.D.
== END 2016-07-12 13:10 | disposition home or self-care (01) | DRG 872 ==
LOC: ED 06:05 → ICU 14:54 → MEDSUR 07-07 14:52
PROVIDERS: ADMIT Internal Medicine; ATTEND Internal Medicine
PROC: [UNRECOGNIZED PROCEDURE] (2016-07-08 10:00)

== ENCOUNTER 2016-07-20 07:28 | Inpatient (IN) ==
--- NOTE | 2016-07-20 08:42 | Emergency Department Note ---
[id number]: R hip pain Time Seen by Provider: 07/20/16 08:08 Source: patient Mode of arrival: EMS Limitations: no limitations - History of Present Illness HPI Narrative: Patient is here for right-sided hip pain which is chronic for her, but she also has been having issues with lumbar pain and recently had an MRI of her L-spine. In reviewing her MRI of the L-spine with the radiologist, it does appear that she has a fluid collection in the lumbar area, which might be a residual fluid collection from her recent surgery where she did have rectal prolapse surgery, and does appear that she has a mesh in place. She had an open procedure done in May for her rectal prolapse, postoperatively developed complications and was found to have enterococcus in her bloodstream and she was placed on antibiotics for that. He subsequently developed a C. difficile diarrhea for which she was hospitalized again. Was discharged from the hospital on 12 July at time. She was on IV Rocephin 2 g IV every 24 hours via PICC line. She also takes magnesium, potassium, fluticasone inhalers. She is also on Fiorinal tablets, she is also on extended release morphine 200 mg by mouth twice a day and vancomycin oral solution 250 mg by mouth every 6 hours. The. Please see discharge summary as dictated by Dr. Caballero. No fevers reported. In the interim, but to several of the staff. She seemed very confused, also EMS reported some intermittent confusion that they reported concern about overmedication with narcotics . She was noted to question one of the staff members " whether he had packed up all the dixon meat " , Then she was stuck to the toilet seat and she was confusing the toilet seat with a pillow. Despite being on morphine 200 mg by mouth twice a day. She is still complaining of back pain as well as right-sided hip pain. Dr. Arevalo this morning reviewed her lumbar MRI and he should concerns with fluid collection which was either discitis or lumbar osteomyelitis which may be related to the enterococcus bacteremia. She denies any chest pain, denies any recent cough. She does have diarrhea. She tells me every 2 hours, which is explosive and the oral vancomycin seem to have helped a little in the sense that the stools are not quite as smelly. - Related Data Home Medications Medication Instructions Recorded Confirmed magnesium oxide 400 mg capsule 300 mg PO .qd cap 02/21/15 07/20/16 potassium gluconate 595 mg (99 mg) 99 mg PO TID tab 02/21/15 07/20/16 tablet fluticasone 200 mcg-vilanterol 25 1 each INHALATION .qdaily each 09/08/1507/20 mcg/dose powder for inhalation levothyroxine 150 mcg capsule 150 mcg PO QDAY 05/23/16 07/20/16 Meloxicam 15 mg PO BID 06/19/16 07/20/16 Polyethylene Glycol 3350 [Miralax] 17 gm PO HS 06/19/16 07/20/16 Sertraline [Zoloft] 100 mg PO HS 06/19/16 07/20/16 Montelukast Sodium [Singulair] 10 mg PO PRN PRN 07/20/16 07/20/16 Previous Rx's Medication Instructions Recorded fluticasone 50 mcg/actuation nasal 1 spray INTRANASAL BID #16 g 03/08/16 spray,suspension rvugdoclkq-ekpacckhtbjap-swxsppay 1 tab-cap PO Q4H PRN #50 tab 04/09/16 50 mg-325 mg-40 mg tablet omeprazole 20 mg capsule,delayed 20 mg PO BID #180 cap 04/18/16 release ondansetron 8 mg disintegrating 8 mg PO TID PRN #90 tab 05/21/16 tablet liothyronine 25 mcg tablet 50 mcg PO QDAY #180 tab 06/17/16 estradiol-norethindrone acet 0.5 1 tab PO QDAY #90 tab 07/01/16 mg-0.1 mg tablet morphine ER 200 mg tablet,extended 200 mg PO BID #60 tab 07/01/16 release Vancomycin Oral Pushpa 250 mg PO Q6 #60 bottle 07/12/16 cefTRIAXone [Rocephin] 2 gm IV Q24H #21 vial 07/12/16 dicyclomine 20 mg tablet 20 mg PO TID #90 tab MDD 3 07/18/16 Allergies Allergy/AdvReac Type Severity Reaction Status Date / Time clindamycin AdvReac Mild Diarrhea Verified 07/18/16 09:27 Review of Systems Review of Systems: atient fell out of bed this morning She denies any injury from the fall, but rather she was trying to get out of bed and she slid to the floor, she is also complaining of right hip pain Constitutional: Denies: fever, chills ENT ED: Reports: dysphagia, other (dry mouth). Denies: ear pain, throat pain Cardiovascular: Denies: chest pain Respiratory: Denies: cough Gastrointestinal: Reports: abdominal pain, nausea, other (diarrhea). Denies: vomiting Genitourinary: Reports: as per HPI. Denies: urgency, dysuria Musculoskeletal: Reports: as per HPI Integumentary: Denies: rash Neurological: Denies: headache Psychiatric: Denies: anxiety Endocrine: Reports: fatigue Past Medical History - Past Medical History Medical history: Reports: arthritis, COPD, GERD, thyroid disease, other (istory of rheumatoid arthritis.) Surgical history ED: Reports: hysterectomy, orthopedic, other, other (rectal prolapse surgery) Psychiatric history: Reports: no psych history Family history: Reports: no significant family history, non-contributory - Social History smoking status: Former smoker Alcohol use: Reports: Rarely Drug use: Reports: none Physical Exam - General Limitations: no limitations General appearance: alert, in no apparent distress, other (patient is alert, awake, answers questions appropriately at times, but then at times drifts offin the middle of a conversation as if overly tired her mouth appears dry and occasionally she is confused about certain issues. The. She was unable to give us a urine specimen as directed,, is unable to followspecific directions) - Head Head exam: atraumatic, normocephalic - Eye Eye exam: Present: normal appearance, PERRL, EOMI, miosis. Absent: periorbital swelling, periorbital tenderness - ENT ENT exam: normal exam, normal oropharynx, mucous membranes dry, TM's normal bilaterally - Neck Neck exam: Present: normal inspection, full ROM, trachea midline - Chest Chest inspection: Present: normal inspection, symmetric chest wall rise - Respiratory Respiratory exam: Present: normal lung sounds bilaterally. Absent: respiratory distress, wheezes - Cardiovascular Cardiovascular exam: Present: regular rate, normal rhythm, normal heart sounds - Abdominal Exam Abdominal exam: Present: soft, guarding, rebound, rigidity, diminished bowel sounds Abdominal tenderness: Present: suprapubic, mild - Rectal Exam Rectal exam: Present: deferred - Extremities Exam Extremities exam: Present: normal inspection, full ROM, other (arthritic deformities of her fingers and hands) - Back Exam Back exam: Present: normal inspection, muscle spasm, paraspinal tenderness, vertebral tenderness (Vertebral tenderness mostly over L3, L4 with paraspinal muscle spasm and discomfort as well.). Absent: full ROM, CVA tenderness (R), CVA tenderness (L), sciatic notch tenderness (R), sciatic notch tenderness (L), straight leg raise (R), straight leg raise (L) - Neurological Exam Neurological exam: Present: alert, oriented X3, CN II-XII intact, other ( confusion at times and she will follow commands, however, at timesinappropriate behaviorand inappropriate comments). Absent: motor sensory deficit - Psychiatric Psychiatric exam: Present: normal affect, normal mood. Absent: suicidal ideation - Skin Skin exam: Present: warm, dry, intact, normal color, other (PICC line to the left antecubital area, this appears nontender and unremarkable.) Course Vital Signs Temperature 99.0 F 07/20/16 07:32 Pulse Rate 97 H 07/20/16 07:32 Respiratory Rate 20 07/20/16 07:32 Blood Pressure 142/82 07/20/16 07:32 Pulse Oximetry (%) 96 07/20/16 07:32 Temperature 99.0 F 07/20/16 07:32 Pulse Rate 97 H 07/20/16 07:32 Respiratory Rate 20 07/20/16 07:32 Blood Pressure 142/82 07/20/16 07:32 Pulse Oximetry (%) 96 07/20/16 07:32 Medical Decision Making - [facility] Narrative Medical decision making narrative: Patient was signed out to Dr. Jenkins at 9 AM. Labs are still pending. She will undergo MRI with gadolinium contrast to look at the prevertebral fluid collections. - Medical Records Medical records reviewed: Yes I reviewed the patient's medical records. - Lab Data Result diagrams: 07/20/16 08:21 07/20/16 08:21 Lab Results 07/20/16 Range/Units 08:21 WBC 10.9 (4.5-11.0) K/mcL RBC 3.90 L (4.00-5.20) M/mcL Hgb 10.3 L (12.0-15.0) g/dL Hct 32.1 L (36.0-48.0) % MCV 82.2 (80.0-100.0) fL MCH 26.5 (26.0-34.0) pg MCHC 32.2 (31.0-36.0) g/dL RDW 16.8 H (11.5-14.5) % Plt Count 366 (140-440) K/mcL MPV 6.7 L (7.4-10.4) fL Band Neutrophils % Not Reportable Disposition Condition: Good Referrals: Stephen Munroe MD [Primary Care Provider] -
[2016-07-20] MEDS: LACTATED RINGERS 1,000 ML IV SCH ×3 (08:52→16:21)
[2016-07-20 09:04] LABS: Mean Cell Volume 82.2 fL (80.0-100.0); Mean Corpuscular HGB Conc 32.2 g/dL (31.0-36.0); Mean Corpuscular Hemoglobin 26.5 pg (26.0-34.0); Platelet Count 366 K/mcL (140-440); Red Cell Distribution Width 16.8 % (11.5-14.5)
[2016-07-20] MEDS ORDERED: LORazepam 2 MG/ML VIAL IV ONE ×3 (09:07→16:05)
[2016-07-20 09:21] LABS: ALT/SGPT 17 U/l (0-40); Albumin 3.7 gm/dL (3.2-5.2); Albumin/Globulin Ratio 1.1 (1.0-2.3); Alkaline Phosphatase 77 U/L (39-117); Blood Urea Nitrogen 11 mg/dl (8-23); C-Reactive Protein 5.8 mg/dl (0.0-0.8)
[2016-07-20 09:29] LABS: Anisocytosis 1+ (NONE SEEN); Eosinophils % (Manual) 6 % (0-7); Lymphocytes % 10 % (15-49); Monocytes % (Manual) 6 % (1-9); Platelet Estimate NORMAL (NORMAL); RBC Morphology ABNORMAL (NORMAL); Segmented Neutrophils % 78 % (38-78)
--- NOTE | 2016-07-20 09:29 | XRay Report ---
CLINICAL INFORMATION: Trauma COMPARISON: Pelvic CT from 07/10/2016 FINDINGS: No fracture or other osseous abnormality. Both SI and hip joints are normal with alignment arthritic change. Surgical clips are present in the true pelvis. IMPRESSION: No fracture or other significant abnormality Interpreted and Authenticated by: Brendan Bear 07/20/16
[2016-07-20 09:45] LABS: Appearance,Urine CLEAR; Bacteria,Urine 0 /hpf (0); Bilirubin,Urine NEG (NEG); Color,Urine STRAW; Glucose,Urine (UA) NEGATIVE (NEG); Leukocyte Esterase,Urine NEG /uL (NEG); Nitrate,Urine NEG (NEG); Protein,Urine NEG (NEG); Specific Gravity,Urine 1.008 (1.000-1.035); Urine Blood NEG mg/dL (<0.03); Urine RBC 1 /hpf (0-1); Urine Squamous Epithelial Cell 1 /hpf (0-4); Urine Transitional Epi Cells < 1 /hpf (0-2); Urine WBC 3 /hpf (0-4); Urobilinogen,Urine NEG (NEG)
[2016-07-20 09:48] LABS: Erythrocyte Sedimentation Rate 90 mm/hr (0-20)
[2016-07-20] MEDS ORDERED: HYDROmorphone 2 MG/ML SYRINGE IV ONE (10:12)
--- NOTE | 2016-07-20 12:14 | Cat Scan Report ---
CLINICAL INFORMATION: Agitation decreased mental status COMPARISON: 06/29/[address] TECHNIQUE: 2.5 mm helical slices were obtained in the skull base to vertex. Following reconstruction, axial reformatted images were reviewed at bone and parenchymal windows. FINDINGS: The ventricles, sulci, fissures, and cisterns are normal in size and configuration. No extra-axial fluid collections are identified. The cerebrum, brainstem and cerebellum are unremarkable. There is no evidence of hemorrhage, mass effect, or edema. Bone windows show no osseous abnormality. IMPRESSION: Normal head CT without contrast. Interpreted and Authenticated by: Brendan Bear 07/20/16
--- NOTE | 2016-07-20 12:53 | Emergency Department Note ---
General Adult HPI - General Chief complaint: Extremity Problem,Nontraumatic Stated complaint: R hip pain Time Seen by Provider: 07/20/16 08:08 Source: patient Mode of arrival: EMS Limitations: no limitations - History of Present Illness HPI Narrative: The patient is a 70-year-old female with a history of right-sided hip pain who presented via EMS after sliding off the bed and then reporting hip and back pain. She recently had an MRI of her lumbar spine. Prior to my coming on shift to Dr. Gabriel reviewed this with the radiologist who felt that a fluid collection in the pelvis that been seen for several weeks now was either discitis or lumbar osteomyelitis. She also came in with altered mental status asking the staff if "the dixon meat was packed up." She seemed disoriented and confused from her arrival. Please see Dr. Gabriel and Dr. Johnston's recent documentation but in short the patient was recently discharged from [facility] on July 12 for severe symptomatic hyponatremia. She recently underwent rectal prolapse surgery and had complications related to that developed enterococcus bacteremia. She is placed on antibiotics for that and discharged home with Rocephin 2 g IV every 24 hours via PICC line. She also was being treated for C. difficile infection and the patient reports that last night was her last dose of oral vancomycin. Free fluid is seen in the patient's imaging of her pelvis for several weeks now and Dr. Santos has reviewed this and felt that it was unlikely related to infection and that he wanted outpatient CT scans of the abdomen to assess interval change. Of note on review of the last records it was deemed that she would benefit from an infectious disease consult and transfer to tertiary care center. However the patient refused to be transferred to [facility] and requested [facility]. [facility] did not have beds available or 90 socialist available so she was discharged home with outpatient follow-up. Today she is really only able to tell me about concerns of her back and hip pain but otherwise denies any problems. She is on chronic pain medication of morphine 200 mg twice a day prescribed by her primary care physician. - Related Data Home Medications Medication Instructions Recorded Confirmed magnesium oxide 400 mg capsule 300 mg PO .qd cap 02/21/15 07/20/16 potassium gluconate 595 mg (99 mg) 99 mg PO TID tab 02/21/15 07/20/16 tablet fluticasone 200 mcg-vilanterol 25 1 each INHALATION .qdaily each 09/08/1507/20 mcg/dose powder for inhalation levothyroxine 150 mcg capsule 150 mcg PO QDAY 05/23/16 07/20/16 Meloxicam 15 mg PO BID 06/19/16 07/20/16 Polyethylene Glycol 3350 [Miralax] 17 gm PO HS 06/19/16 07/20/16 Sertraline [Zoloft] 100 mg PO HS 06/19/16 07/20/16 Montelukast Sodium [Singulair] 10 mg PO PRN PRN 07/20/16 07/20/16 Previous Rx's Medication Instructions Recorded fluticasone 50 mcg/actuation nasal 1 spray INTRANASAL BID #16 g 03/08/16 spray,suspension [id number]-zrwcsbrsweqkn-yssurtbw 1 tab-cap PO Q4H PRN #50 tab 04/09/16 50 mg-325 mg-40 mg tablet omeprazole 20 mg capsule,delayed 20 mg PO BID #180 cap 04/18/16 release ondansetron 8 mg disintegrating 8 mg PO TID PRN #90 tab 05/21/16 tablet liothyronine 25 mcg tablet 50 mcg PO QDAY #180 tab 06/17/16 estradiol-norethindrone acet 0.5 1 tab PO QDAY #90 tab 07/01/16 mg-0.1 mg tablet morphine ER 200 mg tablet,extended 200 mg PO BID #60 tab 07/01/16 release Vancomycin Oral Pushpa 250 mg PO Q6 #60 bottle 07/12/16 cefTRIAXone [Rocephin] 2 gm IV Q24H #21 vial 07/12/16 dicyclomine 20 mg tablet 20 mg PO TID #90 tab MDD 3 07/18/16 Allergies Allergy/AdvReac Type Severity Reaction Status Date / Time clindamycin AdvReac Mild Diarrhea Verified 07/18/16 09:27 Review of Systems All systems ED: reviewed and negative except as stated. Constitutional: Denies: fever, chills ENT ED: Reports: dysphagia, other (dry mouth). Denies: ear pain, throat pain Cardiovascular: Denies: chest pain Respiratory: Denies: cough Gastrointestinal: Reports: abdominal pain, nausea, other (diarrhea). Denies: vomiting Genitourinary: Reports: as per HPI. Denies: urgency, dysuria Musculoskeletal: Reports: as per HPI Integumentary: Denies: rash Neurological: Denies: headache Psychiatric: Denies: anxiety Endocrine: Reports: fatigue Past Medical History - Past Medical History Source: unable to obtain (difficult to obtain history from patient due to altered mental status), old records reviewed Medical history: Reports: arthritis, COPD, GERD, thyroid disease, other (istory of rheumatoid arthritis.) Surgical history ED: Reports: hysterectomy, orthopedic, other, other (rectal prolapse surgery) Psychiatric history: Reports: no psych history - Social History Alcohol use: Reports: Rarely Drug use: Reports: none Physical Exam - General Limitations: no limitations General appearance: alert, in no apparent distress, other (patient is alert, awake, answers questions appropriately at times, but then at times drifts offin the middle of a conversation as if overly tired her mouth appears dry and occasionally she is confused about certain issues. The. She was unable to give us a urine specimen as directed,, is unable to followspecific directions) - Head Head exam: atraumatic - Eye Eye exam: Present: PERRL, other (no tracking well) - ENT ENT exam: normal exam, other (tongue stuck out midline) - Neck Neck exam: Present: normal inspection - Respiratory Respiratory exam: Present: normal lung sounds bilaterally - Cardiovascular Cardiovascular exam: Present: regular rate, normal rhythm - Abdominal Exam Abdominal exam: Present: soft, tenderness (lower abdomen, no rebound or guarding ) Abdominal tenderness: Present: RLQ, LLQ - Extremities Exam Extremities exam: Present: normal inspection - Back Exam Back exam: Present: normal inspection - Neurological Exam Neurological exam: Present: alert, CN II-XII intact (but requires frequent prompting), other (bilateral clonus 3+ beat) - Psychiatric Psychiatric exam: Present: agitated, anxious - Skin Skin exam: Present: warm, dry Course Vital Signs Temperature 99.0 F 07/20/16 07:32 Pulse Rate 97 H 07/20/16 07:32 Respiratory Rate 20 07/20/16 07:32 Blood Pressure 142/82 07/20/16 07:32 Pulse Oximetry (%) 96 07/20/16 07:32 Temperature 99.8 F H 07/20/16 10:51 Pulse Rate 91 H 07/20/16 12:41 Respiratory Rate 20 07/20/16 07:32 Blood Pressure 148/103 07/20/16 12:41 Pulse Oximetry (%) 106 H 07/20/16 12:41 Medical Decision Making - MDM Narrative Medical decision making narrative: I had taken over care of this patient her lab work was back. White count is normal. Her ESR and CRP are elevated. She obviously has altered mental status and is very confused. At times is reaching in the air or trying to pickup driver things off the floor that aren't there. We tried to get an MRI lumbar spine with contrast to further differentiate what is going on with the free fluid in her pelvis. We are unable to do this test due to the patient's inability to stay still despite benzos and pain medication. She has a clear change from when I came on of her mental status worsening and a CT head was ordered to rule out intracranial process. CT head was negative. I discussed with the radiologist on-call who felt that they free fluid in the pelvis is likely osteomyelitis or discitis. Discussed possibly getting a lumbar puncture but the patient would be unable to stay still long enough to do that currently, she had to go under conscious sedation. I spoke with the on- call hospitalist who graciously agreed to admit the patient. Suspect that she has an infection requiring IV broad-spectrum antibiotics. - Medical Records Medical records reviewed: Yes I reviewed the patient's medical records. - Lab Data Lab results reviewed: Yes I reviewed the patient's lab results. Result diagrams: 07/20/16 08:21 07/20/16 08:21 Lab Results 07/20/16 07/20/16 07/20/16 Range/Units 08:21 08:21 09:12 WBC 10.9 (4.5-11.0) K/mcL RBC 3.90 L (4.00-5.20) M/mcL Hgb 10.3 L (12.0-15.0) g/dL Hct 32.1 L (36.0-48.0) % MCV 82.2 (80.0-100.0) fL MCH 26.5 (26.0-34.0) pg MCHC 32.2 (31.0-36.0) g/dL RDW 16.8 H (11.5-14.5) % Plt Count 366 (140-440) K/mcL MPV 6.7 L (7.4-10.4) fL Total Counted 100 Seg Neutrophils % 78 (38-78) % Band Neutrophils % Not Reportable Lymphocytes % 10 L (15-49) % Monocytes % (Manual) 6 (1-9) % Eosinophils % (Manual) 6 (0-7) % Platelet Estimate Normal (NORMAL) RBC Morphology Abnormal (NORMAL) Anisocytosis 1+ A (NONE SEEN) ESR 90 H (0-20) mm/hr Sodium 132 L (133-145) mmol/L Potassium 4.2 (3.3-5.1) mmol/L Chloride 93 L (96-108) mmol/L Carbon Dioxide 27 (22-30) mmol/L Anion Gap 12.0 (8-16) BUN 11 (8-23) mg/dl Creatinine 0.5 L (0.6-1.1) mg/dl GFR Calculation 99 Glucose 111 H (70-105) mg/dL Calcium 9.3 (8.6-10.4) mg/dl Total Bilirubin 0.2 (0.0-1.0) mg/dL AST 14 (0-37) U/l ALT 17 (0-40) U/l Alkaline Phosphatase 77 (39-117) U/L C-Reactive Protein 5.8 H (0.0-0.8) mg/dl Total Protein 7.2 (5.9-8.4) gm/dL Albumin 3.7 (3.2-5.2) gm/dL Globulin 3.5 (2.2-3.7) gm/dL Albumin/Globulin Ratio 1.1 (1.0-2.3) Urine Color Straw Urine Appearance Clear Urine pH 8.0 (5.0-9.0) Ur Specific [place] 1.008 (1.000-1.035) Urine Protein Neg (NEG) mg/dL Urine Glucose (UA) Negative (NEG) mg/dL Urine Ketones Neg (NEG) mg/dL Urine Occult Blood Neg (<0.03) mg/dL Urine Nitrate Neg (NEG) Urine Bilirubin Neg (NEG) mg/dL Urine Urobilinogen Neg (NEG) mg/dL Ur Leukocyte Esterase Neg (NEG) /uL Urine RBC 1 (0-1) /hpf Urine WBC 3 (0-4) /hpf Ur Squamous Epith Cells 1 (0-4) /hpf Ur Transition Epith Cell < 1 (0-2) /hpf Urine Bacteria 0 (0) /hpf Ur Culture Indicated? No - Radiology Data Radiology results reviewed: Yes I reviewed the patient's radiology results. Disposition Clinical Impression: Altered mental status Disposition: Xfer As Inpt ([facility]) Condition: Good Referrals: Stephen Munroe MD [Primary Care Provider] -
--- NOTE | 2016-07-20 13:44 | Internal Med History&Physical ---
Medical - H&P: HPI Patient information: Note initiated : 07/20/16 at 1:34 pm Service Date, if different from initiated Date: [] Patient: Amparo Briceno a 70 y/o F admitted on for R hip pain. Chief Complaint: [] History of present illness: Ms. Briceno is a 70 year old female as recently admitted to this hospital for enterococcus bacteremia occurring afterrectal surgery. She apparently fell out of bed this morning, and then EMS was called to evaluate her for hip and back pain. The human resources analyst also noted increased confusion. she had an MRI yesterday that was concerning for possible lumbar osteomyelitis versus discitis, and radiology have requested follow-up MRI with contrast for today. She was also treated recently for about of C. difficile colitis. in the emergency room there apparently also initially unable to obtain a head CT or an MRI, because the patient could not cooperate due to her altered mental status. she ended up staying in the emergency room for a bit longer time, and they were ultimately able to get a head CT that did not show acute changes. They also attempted a spine MRI with contrast, but they were only able to get a few views , due to her inability to stay still. The radiologist reports that it does look like there is an infectious process going on in either the disc or the vertebral body in the area of L5-S1 which is extradural. -she has reportedly been on IV Rocephin2 g daily at home since her discharge from [facility] on July 12. -there has also been concerned that she may be overusing her pain medications. On the room this afternoon, the patient is fairly somnolent, although she has periods where she opens her eyes wide and starts moving around and trying to climb out of bed. When she is redirected, she does seem to answer most questions appropriately. she was given 0.1 of naloxone, after which she did become quite a bit more alert, but also more agitated. She reported a great deal of pain in her right low back and right hip area. She also reported fairly constant urgency to urinate. on interview, she does think that she's been running a low-grade fever for the last couple of days. She denies headaches or dizziness, new eye or ear symptoms or cough. she says her mouth and throat within very dry, so her throat is a bit sore today. She is unclear on if she's had any swollen glands. She does not report neck stiffness. She denies chest pain or palpitations or shortness of breath. She denies abdominal pain, nausea or vomiting, diarrhea or constipation. She is currently complaining about significant urinary urgency. She tells us that she normally manages her own medications at home, and that she is certain she has been taking everything correctly. We believe she's been coming into the hospital daily for IV antibiotics, and it would appear that today is the first day where she's had any altered mental status. She normally lives at home with her , and is quite functional. Medical History Postoperative fever (Acute)status post rectopexy Postoperative fever (Acute) Clostridium difficile colitis (Acute)June 2016 Pain of right sacroiliac joint (Acute) Arthritis of sacroiliac joint (Acute) Hyponatremia syndrome (Acute) Recurrent colitis due to Clostridium difficile (Acute) Ankle sprain and strain (Acute) Hyponatremia with extracellular fluid depletion (Acute) 06/2016 Postsurgical fever (Acute) Contusion of right knee (Acute) Situational depression (Chronic) Irritable bowel syndrome (Chronic) Hypothyroidism (Chronic) Laceration (Acute) Encounter for removal of sutures (Acute) Bronchitis (Acute) Asymptomatic varicose veins of right lower extremity (Chronic) Diarrhea (Acute) started 03/13 Hemorrhoids (Chronic) The actual problem is rectal prolapse related to BM or valsalva and decreased anal tone. 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 Watsonxiety disorder Chronic pain, on morphine long-term. Surgical History History of rectal surgery (Acute) 05/31/[id number] posterior proctopexy History of hysterectomy (Chronic) 1998 Family History Father Family history of malignant neoplasm of prostate in father Mother Family history of malignant neoplasm of trachea, bronchus, and lung Social History smoking status: Former smoker. [place] and her daughter lives nearby. She denies recent alcohol or drug abuse. Medication List [id number]-mvahbykoemwnl-dvnz 50-325-40 mg 1 tab-cap PO Q4H PRN ceftriaxone 2 GM IV Q24H estradiol-norethindrone acet 0.5-0.1 mg 1 tab PO QDAY fluticasone 50 mcg/actuation 1 spray Intranasal BID fluticasone-vilanterol 200-25 mcg/dose (Breo Ellipta) 1 ea Inhalation .qdaily levothyroxine 150 mcg PO QDAY liothyronine 50 mcg (2 x 25 mcg) PO QDAY magnesium oxide 300 mg (0.75 x 400 mg) PO .qd meloxicam 15 mg PO BID montelukast 10 mg PO QPM morphine ER 200 mg PO BID omeprazole 20 mg PO BID ondansetron 8 mg PO TID PRN polyethylene glycol 3350 17 GM PO HS potassium gluconate 595 mg (99 mg) tablet 99 mg (0.1664 x 595 mg (99 mg)) PO BID sertraline 100 mg PO HS vancomycin 250 mg PO Q6-last dose reportedly last night ? Dicyclomine 20 mg 3 times a day when necessary Allergies/Adverse Reactions clindamycin Adverse Reaction (Mild, Verified 07/18/16 09:27) Diarrhea Medical - H&P: Meds Home Medications Medication Instructions Recorded Confirmed Type magnesium oxide 400 mg capsule 300 mg PO .qd cap 02/21/15 07/20/16 History potassium gluconate 595 mg (99 mg) 99 mg PO TID tab 02/21/15 07/20/16 History tablet fluticasone 200 mcg-vilanterol 25 1 each INHALATION .qdaily each 09/08/1507/20 History mcg/dose powder for inhalation fluticasone 50 mcg/actuation nasal 1 spray INTRANASAL BID #16 g 03/08/16 Rx spray,suspension vxutrdgxoz-ebgomhfvgfpfv-eomnfnqw 1 tab-cap PO Q4H PRN #50 tab 04/09/16 Rx 50 mg-325 mg-40 mg tablet omeprazole 20 mg capsule,delayed 20 mg PO BID #180 cap 04/18/16 07/20/16 Rx release ondansetron 8 mg disintegrating 8 mg PO TID PRN #90 tab 05/21/16 07/20/16 Rx tablet levothyroxine 150 mcg capsule 150 mcg PO QDAY 05/23/16 07/20/16 History liothyronine 25 mcg tablet 50 mcg PO QDAY #180 tab 06/17/16 07/20/16 Rx Meloxicam 15 mg PO BID 06/19/16 07/20/16 History Polyethylene Glycol 3350 [Miralax] 17 gm PO HS 06/19/16 07/20/16 History Sertraline [Zoloft] 100 mg PO HS 06/19/16 07/20/16 History estradiol-norethindrone acet 0.5 1 tab PO QDAY #90 tab 07/01/16 07/20/16 Rx mg-0.1 mg tablet morphine ER 200 mg tablet,extended 200 mg PO BID #60 tab 07/01/16 07/20/16 Rx release Vancomycin Oral Pushpa 250 mg PO Q6 #60 bottle 07/12/16 07/20/16 Rx cefTRIAXone [Rocephin] 2 gm IV Q24H #21 vial 07/12/16 07/20/16 Rx dicyclomine 20 mg tablet 20 mg PO TID #90 tab MDD 3 07/18/16 07/20/16 Rx Montelukast Sodium [Singulair] 10 mg PO PRN PRN 07/20/16 07/20/16 History Allergies Allergy/AdvReac Type Severity Reaction Status Date / Time clindamycin AdvReac Mild Diarrhea Verified 07/18/16 09:27 Medical - H&P: Exam - Constitutional Vitals: Temp Pulse Resp BP Pulse Ox 99.8 F H 91 H 20 148/103 106 H 07/20/16 10:51 07/20/16 12:41 07/20/16 07:32 07/20/16 12:41 07/20/16 12:41 Exam: On exam, initially the patient is fairly somnolent, but she has periods where she becomes rather agitated and start stretching out her arms and legs. After receiving naloxone, she did become quite a bit more alert, but also more agitated, and repeatedly tried to jump out of bed to use the bedside commode. The nurses were able to redirect her, and she would often come down for a few minutes, before becoming very fidgety again.Head: Normocephalic, atraumatic. Ears: TMs and canals are clear. Eyes: PERRLA, EOMI, anicteric. Pharynx: Mucosa is markedly dry. Neck: Appears supple, as she is moving her head continuously. There is no obvious lymphadenopathy, JVD, thyromegaly, bruits. Exam is somewhat difficult due to her inability to stay still. Cardiac exam: Shows regular rate and rhythm, without obvious murmur, rubs, gallops. Lungs: Appear clear to auscultation, without rales, rhonchi, wheezes. Abdomen: Appears soft and nontender with no obvious masses. Bowel sounds are active. She did have a bowel movement while he was in the room. Stool appears soft and light brown. Extremities: Show no cyanosis, clubbing, edema. Neurologic:Mental status is waxing and waning . however she does answer most questions appropriately. Cranial nerves are grossly intact. Motor exam is not tested in detail, but she is clearly strong and moving all extremities equally. Medical - H&P: Reslt - Labs CBC & Chem 7: 07/20/16 08:21 07/20/16 08:21 Labs: Short CBC 07/20/16 Range/Units 08:21 WBC 10.9 (4.5-11.0) K/mcL Hgb 10.3 L (12.0-15.0) g/dL Hct 32.1 L (36.0-48.0) % Plt Count 366 (140-440) K/mcL BMP 07/20/16 08:21 Sodium 132 L Potassium 4.2 Chloride 93 L Carbon Dioxide 27 BUN 11 Creatinine 0.5 L Glucose 111 H Calcium 9.3 Liver Function 07/20/16 Range/Units 08:21 Total Bilirubin 0.2 (0.0-1.0) mg/dL AST 14 (0-37) U/l ALT 17 (0-40) U/l Alkaline Phosphatase 77 (39-117) U/L Albumin 3.7 (3.2-5.2) gm/dL Urine 07/20/16 Range/Units 09:12 Urine Color Straw Urine Appearance Clear Urine pH 8.0 (5.0-9.0) Ur Specific [place] 1.008 (1.000-1.035) Urine Protein Neg (NEG) mg/dL Urine Glucose (UA) Negative (NEG) mg/dL 07/20/16: Head CT:Normal head CT - x-ray of pelvis: Was read as normal. - the radiologist reports on her partial MRI from today, that there does appear to be fluid and/or inflammation involving the L5-S1 discand/or bone. He thinks this could be an extension from a presacral abscess, and is in the extradural space. They were unable to complete the MRI with contrast, due to the patient's inability to stay still. 07/19/16: MRI of the lumbar spine: Formal report is pending, but his repeatordered as showing possible osteomyelitis versus discitis. chest x-ray from July 10, 2016: Was read as essentially normal, and did show the PICC line. - - cT of the abdomen and pelvis showed persistent complex multiloculated fluid collection in the pelvis, suggesting possible abscess. blood cultures from July 09showed no growth 07/08/16:Echocardiogram showed mild to moderate pulmonary hypertension. No vegetations were seen on this transit thoracic echo. Estimated left ventricular ejection fraction or around 50%. blood cultures from July 07, 2016: Grew strep agalactiae, group B, sensitive to ceftriaxone, penicillin, Levaquin stool culture from July 06 was negative for C. difficile Medical - H&P: A/P (1) Fall from bed, initial encounter Current visit: Yes Status: Acute (2) Bacteremia due to Enterococcus Current visit: Yes Status: Acute (3) Hip pain, chronic Current visit: Yes Status: Acute (4) Altered mental status Current visit: Yes Status: Acute (5) Complete rectal prolapse with displacement of anal sphincter Current visit: No Status: Acute (6) Chronic pain Current visit: Yes Status: Acute (7) Sacroiliitis Current visit: Yes Status: Acute - Narrative A/P Narrative: 1. Neurologic. Altered mental status. etiology of this is uncertain, but could certainly be multifactorial. Screen for occult DE, PE, infection intracranial pathology, status post fall. I expect that ultimately her mental status changes will be due to a medical delirium. Current tests point to development of a spinal osteomyelitis versus abscess. #2. Infectious disease. - Recent bacteremia with enterococcus, status post 2 weeks IV Rocephin. -Repeat blood cultures. -recent C. difficile colitis.tatus post a course of Flagyl, followed by a course of oral vancomycin. -current MRI is suggestive of spinal abscess versus osteomyelitis. IV Zosyn and vancomycin have been started, pending repeat blood cultures. Hopefully by tomorrow, she will be calmer and able to tolerate an MRI with contrast so that we concur further clarify the diagnosis. She may require transfer to a center with neurosurgery available. -transfer during her last hospitalization was attempted, however she refused to go out of town, and [facility] could not accommodate her. #3. ( Recent MRI concerning for discitis versus osteomyelitis. Check MRI with contrast, when the patient is able.) #4. Recent hyponatremia. improved. #5.Recent rectal prolapse surgery with subsequent 4 cm seroma versus abscess on CT scan. #6.Chronic pain maintained on morphine. Also history of sacroiliitis. -the patient did not do very well after naloxone today. Over her mental status did clear a bit, so morphine is probably contributing to her depressed mental status. She was given a tiny dose of IV Ativan to help her relax after that, and it did seem to have some effect. -Continue meloxicam as tolerated. #7.History of chronic anxiety. -continue sertraline. #8.History of hypothyroidism. -Continue levothyroxine and Cytomel. #9. History of asthma. Continue fluticasone inhaler and nasal spray and Singulair. #10. Menopause. The patient appears to be maintained micah HRT supplement. Next #11. DVT prophylaxis: Subcutaneous heparin. #12. CODE STATUS: Full code. approximately 75 minutes has been spent so far today, reviewing the patient's case with the [facility] and with radiology, and with staff, reviewing records, interviewing and examining her, and writing orders.
[2016-07-20] MEDS ORDERED: LACTATED RINGERS 1,000 ML IV SCH (15:16)
[2016-07-20] MEDS ORDERED: ACETAMINOPHEN 325 MG TABLET PO PRN (15:16)
[2016-07-20] MEDS ORDERED: ALBUTEROL SULFATE 2.5 MG/3 ML NEBULIZER NEB PRN (15:16)
[2016-07-20] MEDS ORDERED: NALOXONE HCL 0.4 MG/ML VIAL IV PRN (15:16)
[2016-07-20] MEDS ORDERED: MAGNESIUM HYDROXIDE 30 ML ORAL.SUSP PO PRN (15:16)
[2016-07-20] MEDS ORDERED: ONDANSETRON 4 MG/2 ML VIAL IV PRN (15:16)
[2016-07-20] MEDS ORDERED: LORazepam 2 MG/ML VIAL ONE (15:56)
[2016-07-20] MEDS: ALBUTEROL SULFATE 2.5 MG/3 ML NEBULIZER NEB SCH ×2 (16:08→19:10)
[2016-07-20] MEDS: PIPERACILLIN SODIUM/TAZOBACTAM 3.375 GM in DEXTROSE 5% IN WATER 50 ML IV SCH ×3 (16:14→23:55)
[2016-07-20] MEDS: DEXTROSE 5%-1/2NS W/20MEQ KCL 1,000 ML IV SCH (16:17)
[2016-07-20] MEDS ORDERED: MONTELUKAST 10 MG TABLET PO PRN (16:29)
[2016-07-20 17:13] LABS: proBNP 698.5 pg/ml (0-125)
--- NOTE | 2016-07-20 18:59 | XRay Report ---
CLINICAL INFORMATION: Confusion COMPARISON: 07/10/2016 FINDINGS: PICC line is distally positioned with the tip lying near the tricuspid valve plane. Cardiomediastinal silhouette and pulmonary vessels are unremarkable. Lungs are clear. No effusions. Right diaphragm is mildly elevated. IMPRESSION: No acute cardiopulmonary disease. Distally placed PICC line with the tip near the tricuspid valve plane - please withdraw the line 5 cm Interpreted and Authenticated by: Brendan Bear 07/20/16
[2016-07-20] MEDS ORDERED: morphine 15 MG TABLET PO PRN (19:00)
[2016-07-20] MEDS: HEPARIN 5,000 UNIT/ML VIAL SQ SCH (21:11)
[2016-07-20] MEDS: LIDOCAINE PATCH TOPICAL SCH (21:31)
[2016-07-20] MEDS: FLUTICASONE PROPIONATE SPRAY.NAS NS SCH (22:01)
[2016-07-20] MEDS: POLYETHYLENE GLYCOL 3350 17 GM PACKET PO SCH (23:17)
[2016-07-20] MEDS: SERTRALINE 50 MG TABLET PO SCH (23:17)
[2016-07-20] MEDS: DOCUSATE SODIUM 100 MG CAPSULE PO SCH (23:17)
[2016-07-20] MEDS: MELOXICAM 7.5 MG TABLET PO SCH (23:17)
[2016-07-20] MEDS: morphine 30 MG TAB.SR.12H PO SCH (23:18)
[2016-07-21] MEDS: ALBUTEROL SULFATE 2.5 MG/3 ML NEBULIZER NEB SCH ×4 (03:08→19:35)
[2016-07-21] MEDS: DEXTROSE 5%-1/2NS W/20MEQ KCL 1,000 ML IV SCH ×3 (04:52→19:18)
[2016-07-21] MEDS: PIPERACILLIN SODIUM/TAZOBACTAM 3.375 GM in DEXTROSE 5% IN WATER 50 ML IV SCH ×3 (05:49→18:34)
[2016-07-21 06:22] LABS: C-Reactive Protein 7.2 mg/dl (0.0-0.8)
[2016-07-21 06:28] LABS: ALT/SGPT 14 U/l (0-40); Albumin 3.3 gm/dL (3.2-5.2); Alkaline Phosphatase 69 U/L (39-117); Bilirubin,Direct < 0.2 mg/dL (0.0-0.3); Blood Urea Nitrogen 7 mg/dl (8-23); Gamma Glutamyl Transpeptidase 38 U/L (5-36); Magnesium 1.7 mg/dL (1.6-2.5); Phosphorous 3.5 mg/dL (2.7-4.5); Uric Acid 2.4 mg/dL (2.5-8.0)
[2016-07-21] MEDS ORDERED: 0.9 % SODIUM CHLORIDE 10 ML SYRINGE IV PRN (06:46)
[2016-07-21] MEDS ORDERED: LEVOTHYROXINE 150 MCG TABLET PO SCH (07:30)
[2016-07-21] MEDS ORDERED: PANTOPRAZOLE 40 MG VIAL IV SCH (07:30)
[2016-07-21 07:46] LABS: Mean Cell Volume 83.1 fL (80.0-100.0); Mean Corpuscular HGB Conc 32.3 g/dL (31.0-36.0); Mean Corpuscular Hemoglobin 26.8 pg (26.0-34.0); Platelet Count 331 K/mcL (140-440); RBC 3.53 M/mcL (4.00-5.20); Red Cell Distribution Width 17.1 % (11.5-14.5)
[2016-07-21 08:22] LABS: Anisocytosis 1+ (NONE SEEN); Eosinophils % (Manual) 2 % (0-7); Lymphocytes % 15 % (15-49); Monocytes % (Manual) 8 % (1-9); Platelet Estimate NORMAL (NORMAL); RBC Morphology ABNORM (NORMAL); Segmented Neutrophils % 75 % (38-78)
[2016-07-21] MEDS ORDERED: BUDESONIDE 0.5 MG/2 ML AMPUL.NEB NEB SCH (09:00)
[2016-07-21] MEDS ORDERED: LIOTHYRONINE 5 MCG TABLET PO SCH (09:00)
[2016-07-21] MEDS ORDERED: LIDOCAINE PATCH TOPICAL SCH (09:00)
[2016-07-21] MEDS ORDERED: NORETHINDRONE ACET PO SCH (09:00)
[2016-07-21] MEDS ORDERED: Fluticasone/Vilanterol [Breo Ellipta] 200-25 Mcg Inhaler INH SCH (09:00)
[2016-07-21] MEDS ORDERED: ESTRADIOL PO SCH (09:00)
[2016-07-21] MEDS ORDERED: MAGNESIUM OXIDE 400 MG TABLET PO SCH (09:00)
[2016-07-21] MEDS: DOCUSATE SODIUM 100 MG CAPSULE PO SCH ×2 (09:07→19:48)
[2016-07-21] MEDS: FLUTICASONE PROPIONATE SPRAY.NAS NS SCH ×2 (09:08→19:49)
[2016-07-21] MEDS: HEPARIN 5,000 UNIT/ML VIAL SQ SCH ×2 (09:08→19:47)
[2016-07-21] MEDS: MELOXICAM 7.5 MG TABLET PO SCH ×2 (09:10→19:48)
[2016-07-21] MEDS: morphine 30 MG TAB.SR.12H PO SCH ×2 (09:11→19:47)
[2016-07-21] MEDS ORDERED: MAGNESIUM SULFATE 8.12 MEQ in DEXTROSE 5% IN WATER 50 ML IV ONE (10:07)
[2016-07-21] MEDS ORDERED: MAGNESIUM SULFATE 2 GM/50 ML BAG IV ONE (10:20)
[2016-07-21] MEDS: LORazepam 2 MG/ML VIAL IV PRN ×2 (11:29→20:22)
--- NOTE | 2016-07-21 14:03 | Internal Med Progress Note ---
Medical - PN: Subj Patient information: Note initiated : 07/21/16 at 2:03 pm Service Date, if different from initiated Date: [] Patient: Amparo Briceno 70 y/o F admitted on 07/20/16 for R hip pain. Chief Complaint: [] - Constitutional Vitals: Vital Signs Temp Pulse Resp BP Pulse Ox 97.5 F L 87 11 L 149/83 94 07/21/16 08:00 07/21/16 09:41 07/21/16 09:41 07/21/16 08:00 07/21/16 08:00 Period Temp Pulse Resp BP Sys/Robb Pulse Ox Last 24 Hr 97.5 F-99.0 F 70-98 11-19 121-149/71-98 94-96 Intake and Output 07/21/16 07/21/16 07/21/16 05:59 13:59 21:59 Intake Total 50 / 50 Output Total Balance 50 / 50 Weight Intake & Output: Intake & Output 07/21/16 07/21/16 07/21/16 05:59 13:59 21:59 Intake Total 50 / 50 Output Total Balance 50 / 50 Weight Intake: IV 50 / 50 Dextrose 5%-1/2Ns W/20Meq KCl 1,000 ml @ 100 mls/ hr IV .Q10H ESTEFANIA Rx#: [id number] Dextrose 5% in Water 50 50 / 50 ml @ 100 mls/hr IV Q6H ESTEFANIA with Zosyn 3.375 gm Rx#:[id number] Oral Output: Urine Catheter Amount Medical - PN: Obj Da - Labs CBC & Chem 7: 07/21/16 07:09 07/21/16 04:17 Labs: Abnormal Lab Results 07/21/16 07/21/16 07/21/16 07:09 04:17 04:16 RBC 3.53 L Hgb 9.5 L Hct 29.3 L RDW 17.1 H MPV 6.5 L RBC Morphology Abnorm A Anisocytosis 1+ A D-Dimer BUN 7 L Creatinine 0.5 L Glucose 132 H Uric Acid 2.4 L GGT 38 H C-Reactive Protein 7.2 H NT-Pro-B Natriuret Pep 07/20/16 07/20/16 07/20/16 15:25 15:25 15:25 RBC Hgb Hct RDW MPV RBC Morphology Anisocytosis D-Dimer 1.92 H BUN Creatinine Glucose Uric Acid GGT C-Reactive Protein 6.5 H NT-Pro-B Natriuret Pep 698.5 H Meds: Medications Acetaminophen (Tylenol) 650 mg PO Q6HP PRN PRN Reason: PAIN/FEVER > 101 Albuterol Sulfate (Ventolin) 2.5 mg NEB Q4HRT PRN PRN Reason: Shortness Of Breath Or Wheezing Albuterol Sulfate (Ventolin) 2.5 mg NEB Q6HRT [facility] Last Admin: 07/21/16 07:40 Dose: 2.5 mg Budesonide (Pulmicort) 0.5 mg NEB DAILY [facility] Last Admin: 07/21/16 09:35 Dose: 0.5 mg Docusate Sodium (Colace) 100 mg PO BID [facility] Last Admin: 07/21/16 09:07 Dose: Not Given Fluticasone Propionate (Flonase) 1 spray NS BID [facility] Last Admin: 07/21/16 09:08 Dose: Not Given Heparin Sodium (Porcine) (Heparin) 5,000 unit SQ Q12 [facility] Last Admin: 07/21/16 09:08 Dose: 5,000 unit Heparin Sodium (Porcine) (Heparin Flush) 2 ml IV Q12 [facility] Last Admin: 07/21/16 09:10 Dose: 2 ml Potassium Chloride/Dextrose/Sod Cl (Dextrose 5%-1/2ns W/20meq Kcl) 1,000 mls @ 100 mls/hr IV .Q10H [facility] Last Admin: 07/21/16 04:52 Dose: 100 mls/hr Piperacillin Sod/Tazobactam (Sod 3.375 gm/ Dextrose) 50 mls @ 100 mls/hr IV Q6H [facility] Last Infusion: 07/21/16 09:00 Dose: Infused Levothyroxine Sodium (Synthroid) 150 mcg PO QAMAC [facility] Last Admin: 07/21/16 07:58 Dose: 150 mcg Lidocaine (Lidoderm) 1 patch TOPICAL HS [facility] Last Admin: 07/20/16 21:31 Dose: 1 patch Lidocaine (Lidoderm) 0 patch TOPICAL DAILY [facility] Last Admin: 07/21/16 09:17 Dose: Not Given Liothyronine Sodium (Cytomel) 50 mcg PO DAILY [facility] Last Admin: 07/21/16 09:08 Dose: 50 mcg Lorazepam (Ativan) 0.5 mg IV Q2HP PRN PRN Reason: ANXIETY/SEDATION Last Admin: 07/21/16 11:29 Dose: 0.5 mg Magnesium Hydroxide (Milk Of Magnesia) 30 ml PO DAILYP PRN PRN Reason: Constipation Magnesium Oxide (Magnesium Oxide) 400 mg PO DAILY [facility] Last Admin: 07/21/16 09:10 Dose: 400 mg Meloxicam (Mobic) 15 mg PO BID [facility] Last Admin: 07/21/16 09:10 Dose: 15 mg Montelukast Sodium (Singular) 10 mg PO PRN PRN PRN Reason: Congestion Morphine Sulfate (Morphine) 1 mg IV Q2HP PRN PRN Reason: Pain Last Admin: 07/21/16 11:48 Dose: 1 mg Morphine Sulfate (Ms Contin) 180 mg PO BID [facility] Last Admin: 07/21/16 09:11 Dose: 180 mg Morphine Sulfate (Morphine) 15 mg PO Q4-6HP PRN PRN Reason: Pain Naloxone HCl (Narcan) 0.1 mg IV Q2MIN PRN PRN Reason: Opiate Reversal Last Admin: 07/20/16 15:37 Dose: 0.1 mg Ondansetron HCl (Zofran) 4 mg IV Q4HP PRN PRN Reason: Nausea And Vomiting Pantoprazole Sodium (Protonix) 40 mg IV QAMAC [facility] Last Admin: 07/21/16 07:58 Dose: 40 mg Estradiol/Norethindrone Acet [ Lopreeza] 0.5/0.1 Mg Tab 1 dose PO QDAY [facility] Last Admin: 07/21/16 09:14 Dose: Not Given Fluticasone/Vilanterol [Breo Ellipta] 200-25 Mcg Inhaler 1 dose INH DAILY [facility] Last Admin: 07/21/16 09:14 Dose: Not Given Polyethylene Glycol (Miralax) 17 gm PO HS [facility] Last Admin: 07/20/16 23:17 Dose: Not Given Sertraline HCl (Zoloft) 100 mg PO [facility] Last Admin: 07/20/16 23:17 Dose: 100 mg Sodium Chloride (Saline Flush) 10 ml IV UD PRN PRN Reason: FLUSH Medical - PN: A/P - Time Spent With Patient Total time spent is greater than 50% in coordination of care (as documented) at patient's floor/unit and/or counseling patient: (1) Fall from bed, initial encounter Status: Acute Current Visit: Yes (2) Bacteremia due to Enterococcus Status: Acute Current Visit: Yes (3) Hip pain, chronic Status: Acute Current Visit: Yes (4) Altered mental status Status: Acute Current Visit: Yes (5) Complete rectal prolapse with displacement of anal sphincter Status: Acute Current Visit: No (6) Chronic pain Status: Acute Current Visit: Yes (7) Sacroiliitis Status: Acute Current Visit: Yes Medical - PN: Qual - VTE Deep Vein Thrombosis/Pulmonary Embolism Present on Admission: No
--- NOTE | 2016-07-21 19:10 | Discharge Summary ---
Medical - DS: Prov Patient information: Note initiated : 07/21/16 at 6:59 pm Service Date, if different from initiated Date: [] Patient: Amparo Briceno 70 y/o F admitted on 07/20/16 for R hip pain. Chief Complaint: [] Date of admission: 07/20/16 14:40 Discharge date: 07/21/16 Primary care physician: [Dr. Stephen Munroe, phone #[phone]] Admitting clinician: Fannie Man Attending physician on discharge: Fannie Man Medical - DS: Meds - Discharge Medications Prescriptions: Vancomycin Per Pharmacy 1 order IV ONCE #1 miscell Active and Home Medications: Home Medications potassium gluconate 595 mg (99 mg) tablet 99 mg PO TID tab 02/21/15 [History Confirmed 07/20/16 Last Taken 07/19/16] fluticasone 50 mcg/actuation nasal spray,suspension 1 spray INTRANASAL BID #16 g 03/08/16 [Rx Confirmed 07/20/16 Last Taken 07/19/16] njxxuktvyb-asjlvlzndpnkl-ctbwrjml 50 mg-325 mg-40 mg tablet 1 tab-cap PO Q4H PRN #50 tab 04/09/16 [Rx Confirmed 07/20/16 Last Taken 07/19/16] omeprazole 20 mg capsule,delayed release 20 mg PO BID #180 cap 04/18/16 [Rx Confirmed 07/20/16 Last Taken 07/19/16] ondansetron 8 mg disintegrating tablet 8 mg PO TID PRN #90 tab 05/21/16 [Rx Confirmed 07/20/16 Last Taken 07/19/16] levothyroxine 150 mcg capsule 150 mcg PO QDAY 05/23/16 [History Confirmed Last Taken 07/19/16] liothyronine 25 mcg tablet 50 mcg PO QDAY #180 tab 06/17/16 [Rx Confirmed Last Taken 07/19/16] Meloxicam 15 mg PO BID 06/19/16 [History Confirmed 07/20/16 Last Taken 07/19/16] Polyethylene Glycol 3350 [Miralax] 17 gm PO HS 06/19/16 [History Confirmed 07/20 Last Taken 07/19/16] Sertraline [Zoloft] 100 mg PO HS 06/19/16 [History Confirmed 07/20/16 Last Taken 07/19/16] estradiol-norethindrone acet 0.5 mg-0.1 mg tablet 1 tab PO QDAY #90 tab [Rx Confirmed 07/20/16 Last Taken 07/19/16] morphine ER 200 mg tablet,extended release 200 mg PO BID #60 tab 07/01/16 [Rx Confirmed 07/20/16 Last Taken 07/19/16] Vancomycin Oral Pushpa 250 mg PO Q6 #60 bottle 07/12/16 [Rx Confirmed 07/20/16 Last Taken 07/19/16] cefTRIAXone [Rocephin] 2 gm IV Q24H #21 vial 07/12/16 [Rx Confirmed 07/20/16 Last Taken 07/19/16] dicyclomine 20 mg tablet 20 mg PO TID #90 tab MDD 3 07/18/16 [Rx Confirmed 07/20 Last Taken 07/19/16] Montelukast Sodium [Singulair] 10 mg PO HS 07/20/16 [History Confirmed 07/20/16 Last Taken Unknown] Medical - DS: Hosp Hospital course: Mrs. Briceno is a 70 year old female 07/20/16:History of present illness: Ms. Briceno is a 70 year old female as recently admitted to this hospital for streptococcus agalactiae bacteremia occurring after rectal surgery. She apparently fell out of bed this morning, and then EMS was called to evaluate her for hip and back pain. The paster supervisor also noted increased confusion. she had an MRI yesterday that was concerning for possible lumbar osteomyelitis versus discitis, and radiology have requested follow-up MRI with contrast for today. She was also treated recently for about of C. difficile colitis. In the emergency room there apparently also initially unable to obtain a head CT or an MRI, because the patient could not cooperate due to her altered mental status. she ended up staying in the emergency room for a bit longer time, and they were ultimately able to get a head CT that did not show acute changes. They also attempted a spine MRI with contrast, but they were only able to get a few views , due to her inability to stay still. The radiologist reports that it does look like there is an infectious process going on in either the disc or the vertebral body in the area of L5-S1 which is extradural. -she has reportedly been on IV Rocephin2 g daily at home since her discharge from [facility] on July 12. In the room this afternoon, the patient is fairly somnolent, although she has periods where she opens her eyes wide and starts moving around and trying to climb out of bed. When she is redirected, she does seem to answer most questions appropriately. she was given 0.1 of naloxone, after which she did become quite a bit more alert, but also more agitated. She reported a great deal of pain in her right low back and right hip area. She also reported fairly constant urgency to urinate. on interview, she does think that she's been running a low-grade fever for the last couple of days. She denies headaches or dizziness, new eye or ear symptoms or cough. she says her mouth and throat within very dry, so her throat is a bit sore today. She is unclear on if she's had any swollen glands. She does not report neck stiffness. She denies chest pain or palpitations or shortness of breath. She denies abdominal pain, nausea or vomiting, diarrhea or constipation. She is currently complaining about significant urinary urgency. She tells us that she normally manages her own medications at home, and that she is certain she has been taking everything correctly. We believe she's been coming into the hospital daily for IV antibiotics, and it would appear that today is the first day where she's had any altered mental status. She normally lives at home with her , and is quite functional. 07/21/16: it took several hours for the patient to settle down last night, because she was having such severe low back pain and spasms, which caused her to become quite agitated and she would flail her arms and legs around. Ultimately she received IV Ativan in addition to her morphine, and she eventually was able to get some rest. This morning, the nurses noted she was having a great deal of ectopy on her monitor and the patient did report that she had had some palpitations recently. Her chest x-ray came back showing that her PICC line was too close to her right atrium. They did pull that back a few inches, and the ectopy resolved. This morning, she was definitely calmer and more alert and awake. She notes that she is at least having someperiods that are pain-free now, but still has some episodes that are quite painful. today she denies current subjective fever or chills, chest pain or shortness of breath, abdominal pain, nausea or vomiting. On arrival yesterday, the patient did not have a fever or an elevated white blood cell count, however was still receiving IV Rocephin daily as an outpatient , for her recent diagnosis of strep bacteremia. Rocephin was discontinued, and she was started on Zosyn plus vancomycin overnight. We were able to arrange to send her over to [facility], in [place], for an MRI with contrast of her spine. By verbal report, the radiologist notes L5S1 discitis and osteomyelitis, associated with an epidural abscess. [facility] does not have a neurosurgeon available today, so Dr. Josué abbasi neurosurgery, [place] [facility], was contacted. She agreed that the patient needed further evaluation. Dr. Khloe mcelroy the hospitalist service was then contacted, and graciously accepted this patient for transfer to their hospital. Medical History Postoperative fever (Acute)status post rectopexy Postoperative fever (Acute) Clostridium difficile colitis (Acute)June 2016 Pain of right sacroiliac joint (Acute) Arthritis of sacroiliac joint (Acute) Hyponatremia syndrome (Acute) Recurrent colitis due to Clostridium difficile (Acute) Ankle sprain and strain (Acute) Hyponatremia with extracellular fluid depletion (Acute) 06/2016 Postsurgical fever (Acute) Contusion of right knee (Acute) Situational depression (Chronic) Irritable bowel syndrome (Chronic) Hypothyroidism (Chronic) Laceration (Acute) Encounter for removal of sutures (Acute) Bronchitis (Acute) Asymptomatic varicose veins of right lower extremity (Chronic) Diarrhea (Acute) started 03/13 Hemorrhoids (Chronic) The actual problem is rectal prolapse related to BM or valsalva and decreased anal tone. 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 Watsonxiety disorder Chronic pain, on morphine long-term. Surgical History History of rectal surgery (Acute) 05/31/[id number]-[id number] posterior proctopexy History of hysterectomy (Chronic) 1998 current medications: Acetaminophen (Tylenol) 650 mg PO Q6HP PRN PRN Reason: PAIN/FEVER > 101 Albuterol Sulfate (Ventolin) 2.5 mg NEB Q4HRT PRN PRN Reason: Shortness Of Breath Or Wheezing Albuterol Sulfate (Ventolin) 2.5 mg NEB Q6HRT [facility] Last Admin: 07/21/16 07:40 Dose: 2.5 mg Budesonide (Pulmicort) 0.5 mg NEB DAILY [facility] Last Admin: 07/21/16 09:35 Dose: 0.5 mg Docusate Sodium (Colace) 100 mg PO BID [facility] Last Admin: 07/21/16 09:07 Dose: Not Given Fluticasone Propionate (Flonase) 1 spray NS BID [facility] Last Admin: 07/21/16 09:08 Dose: Not Given Heparin Sodium (Porcine) (Heparin) 5,000 unit SQ Q12 [facility] Last Admin: 07/21/16 09:08 Dose: 5,000 unit Heparin Sodium (Porcine) (Heparin Flush) 2 ml IV Q12 [facility] Last Admin: 07/21/16 09:10 Dose: 2 ml Potassium Chloride/Dextrose/Sod Cl (Dextrose 5%-1/2ns W/20meq Kcl) 1,000 mls @ 100 mls/hr IV .Q10H [facility] Last Admin: 07/21/16 04:52 Dose: 100 mls/hr Piperacillin Sod/Tazobactam (Sod 3.375 gm/ Dextrose) 50 mls @ 100 mls/hr IV Q6H [facility] Last Infusion: 07/21/16 09:00 Dose: Infused Levothyroxine Sodium (Synthroid) 150 mcg PO QAMAC [facility] Last Admin: 07/21/16 07:58 Dose: 150 mcg Lidocaine (Lidoderm) 1 patch TOPICAL HS [facility] Last Admin: 07/20/16 21:31 Dose: 1 patch Lidocaine (Lidoderm) 0 patch TOPICAL DAILY [facility] Last Admin: 07/21/16 09:17 Dose: Not Given Liothyronine Sodium (Cytomel) 50 mcg PO DAILY [facility] Last Admin: 07/21/16 09:08 Dose: 50 mcg Lorazepam (Ativan) 0.5 mg IV Q2HP PRN PRN Reason: ANXIETY/SEDATION Last Admin: 07/21/16 11:29 Dose: 0.5 mg Magnesium Hydroxide (Milk Of Magnesia) 30 ml PO DAILYP PRN PRN Reason: Constipation Magnesium Oxide (Magnesium Oxide) 400 mg PO DAILY [facility] Last Admin: 07/21/16 09:10 Dose: 400 mg Meloxicam (Mobic) 15 mg PO BID [facility] Last Admin: 07/21/16 09:10 Dose: 15 mg Montelukast Sodium (Singular) 10 mg PO PRN PRN PRN Reason: Congestion Morphine Sulfate (Morphine) 1 mg IV Q2HP PRN PRN Reason: Pain Last Admin: 07/21/16 11:48 Dose: 1 mg Morphine Sulfate (Ms Contin) 180 mg PO BID [facility] Last Admin: 07/21/16 09:11 Dose: 180 mg Morphine Sulfate (Morphine) 15 mg PO Q4-6HP PRN PRN Reason: Pain Naloxone HCl (Narcan) 0.1 mg IV Q2MIN PRN PRN Reason: Opiate Reversal Last Admin: 07/20/16 15:37 Dose: 0.1 mg Ondansetron HCl (Zofran) 4 mg IV Q4HP PRN PRN Reason: Nausea And Vomiting Pantoprazole Sodium (Protonix) 40 mg IV QAMAC [facility] Last Admin: 07/21/16 07:58 Dose: 40 mg Estradiol/Norethindrone Acet [ Lopreeza] 0.5/0.1 Mg Tab 1 dose PO QDAY [facility] Last Admin: 07/21/16 09:14 Dose: Not Given Fluticasone/Vilanterol [Breo Ellipta] 200-25 Mcg Inhaler 1 dose INH DAILY [facility] Last Admin: 07/21/16 09:14 Dose: Not Given Polyethylene Glycol (Miralax) 17 gm PO [facility] Last Admin: 07/20/16 23:17 Dose: Not Given Sertraline HCl (Zoloft) 100 mg PO [facility] Last Admin: 07/20/16 23:17 Dose: 100 mg Sodium Chloride (Saline Flush) 10 ml IV UD PRN PRN Reason: FLUSH vancomycin, per pharmacy. on physical exam today, the patient was calmer and much more alert Neck is supple without obvious lymphadenopathy or JVD.Cardiac exam shows regular rate and rhythm, without obvious murmurs, rubs, gallops. Lungs are clear to auscultation. Abdomen: Is soft and nontender. Patient reports ongoing soft stools, but no diarrhea. (She is status post treatment with oral vancomycin for C. difficile. ) Next line extremities: Show no cyanosis, clubbing, edema. Neurologic: The patient is awake and alert and oriented. Cranial nerves are grossly intact. Motor strength appears intact and symmetric throughout, but the patient continues to have severe pain that starts in her back and radiates into her right hip with almost any movement that affects her spine or hip areas assessment and plan: 1. Neurologic. Altered mental status. etiology of this is uncertain, but could certainly be multifactorial. this is much improved today, and I suspect was multifactorial, due to severe pain, as well as ongoing infection. However, she now appears to have an epidural abscess, which is likely the cause of her pain. This has been reviewed with Dr. Lin of neurosurgery, and the patient will be transported [place] [facility] further evaluation. #2. Infectious disease. - Recent bacteremia with Streptococcus agalactiae, status post 2 weeks IV Rocephin. -Repeat blood cultures hese are negative so far.. -recent C. difficile colitis.Status post a course of Flagyl, followed by a course of oral vancomycin. -current MRI is suggestive of spinal abscess versus osteomyelitis. IV Zosyn and vancomycin have been started, pending repeat blood cultures. -transfer during her last hospitalization was attempted, however she refused to go out of town, and [facility] could not accommodate her. #3. ( Recent MRI concerning for discitis versus osteomyelitis. Check MRI with contrast, when the patient is able.) #4. Recent hyponatremia. improved. #5.Recent rectal prolapse surgery with subsequent 4 cm seroma versus abscess on CT scan. #6.Chronic pain maintained on morphine. Also history of sacroiliitis. -the patient did not do very well after naloxone yesterday. although her mental status did clear a bit, so morphine is probably contributing to her depressed mental status. She was given a tiny dose of IV Ativan to help her relax after that, and it did seem to have some effect. -Continue meloxicam as tolerated. #7.History of chronic anxiety. -continue sertraline. #8.History of hypothyroidism. -Continue levothyroxine and Cytomel. #9. History of asthma. Continue fluticasone inhaler and nasal spray and Singulair. #10. Menopause. The patient appears to be maintained micah HRT supplement. Next #11. DVT prophylaxis: Subcutaneous heparin. this should probably be held until neurosurgery evaluation. #12. CODE STATUS: Full code. Discharge diagnosis: l5-S1 osteomyelitis with associated epidural abscess - Time Spent with Patient Total time spent providing and/or coordinating discharge services: Greater than 30 minutes ([id number] minutes was spent today, reviewing patient's test results,arranging for further testing,interviewing and examining her,reviewing test results with outside doctors, and arranging transfer to a higher level of care.) Medical - DS: Exam - Constitutional Vitals: Vital Signs Temp Pulse Pulse Resp BP Pulse Ox 07/21/16 18:45 95 07/21/16 16:00 98.2 F 83 18 134/79 98 07/21/16 14:10 82 14 07/21/16 09:41 87 11 L 07/21/16 08:42 70 11 L 07/21/16 08:00 97.5 F L 98 H 16 149/83 94 07/21/16 05:22 70 18 07/21/16 05:00 87 19 121/79 95 07/21/16 00:00 99.0 F 85 16 143/71 96 07/20/16 20:00 90 18 128/98 96 07/20/16 19:41 96 07/20/16 19:40 96 07/20/16 19:38 77 17 Intake and Output 07/21/16 07/21/16 07/21/16 05:59 13:59 21:59 Intake Total 50 / 50 578 / 578 Output Total 700 / 700 Balance -650 / -650 578 / 578 Intake: IV 50 / 50 98 / 98 Dextrose 5%-1/2Ns W/20Meq KCl 1,000 ml @ 100 mls/ hr IV .Q10H ESTEFANIA Rx#: [id number] Dextrose 5% in Water 50 50 / 50 48 / 48 ml @ 100 mls/hr IV Q6H ESTEFANIA with Zosyn 3.375 gm Rx#:[id number] Oral 480 / 480 Output: Urine Catheter Amount 700 / 700 Other: Meal Dinner Percent of Meal Consumed 75% # Bowel Movements 1 Weight Medical - DS: Data Labs on day of discharge: Labs from last 24 hours 07/21/16 07/21/16 07/21/16 07:09 04:17 04:16 WBC 7.2 RBC 3.53 L Hgb 9.5 L Hct 29.3 L MCV 83.1 MCH 26.8 MCHC 32.3 RDW 17.1 H Plt Count 331 MPV 6.5 L Total Counted 100 Seg Neutrophils % 75 Band Neutrophils % Not Reportable Lymphocytes % 15 Monocytes % (Manual) 8 Eosinophils % (Manual) 2 Platelet Estimate Normal RBC Morphology Abnorm A Anisocytosis 1+ A Sodium 135 Potassium 3.6 Chloride 96 Carbon Dioxide 26 Anion Gap 13.0 BUN 7 L Creatinine 0.5 L GFR Calculation 99 Glucose 132 H Uric Acid 2.4 L Calcium 8.8 Phosphorus 3.5 Magnesium 1.7 Total Bilirubin 0.3 Direct Bilirubin < 0.2 GGT 38 H AST 13 ALT 14 Alkaline Phosphatase 69 Lactate Dehydrogenase 190 C-Reactive Protein 7.2 H Total Protein 6.6 Albumin 3.3 Globulin 3.3 Albumin/Globulin Ratio 1.0 Triglycerides 82 Preliminary micro results at discharge 07/20/16 15:32 Blood Culture - Preliminary Blood 07/20/16 15:25 Blood Culture - Preliminary Blood 07/21/16: MRI of her lumbar spine with contrast today, done at [facility]: By verbal report: Shows discitis and osteomyelitis at L5-S1, with associated epidural abscess. 07/20/16: Head CT:Normal head CT - x-ray of pelvis: Was read as normal. - the radiologist reports on her partial MRI from today, that there does appear to be fluid and/or inflammation involving the L5-S1 discand/or bone. He thinks this could be an extension from a presacral abscess, and is in the extradural space. They were unable to complete the MRI with contrast, due to the patient's inability to stay still. 07/19/16: MRI of the lumbar spine: Formal report is pending, but his repeatordered as showing possible osteomyelitis versus discitis. chest x-ray from July 10, 2016: Was read as essentially normal, and did show the PICC line. - - cT of the abdomen and pelvis showed persistent complex multiloculated fluid collection in the pelvis, suggesting possible abscess. blood cultures from July 09showed no growth 07/08/16:Echocardiogram showed mild to moderate pulmonary hypertension. No vegetations were seen on this transit thoracic echo. Estimated left ventricular ejection fraction or around 50%. blood cultures from July 07, 2016: Grew strep agalactiae, group B, sensitive to ceftriaxone, penicillin, Levaquin stool culture from July 06 was negative for C. difficile Medical - DS: A/P - Patient/Caregiver Discharge Instructions Activity: as per physical therapy Diet: Regular Diet Prescriptions: Vancomycin Per Pharmacy 1 order IV ONCE #1 miscell - Problem Maintenance (1) Fall from bed, initial encounter Status: Acute (2) Bacteremia due to Enterococcus Status: Acute (3) Hip pain, chronic Status: Acute Qualifiers: Laterality: right Qualified Code(s): M25.551 - Pain in right hip; G89.29 - Other chronic pain (4) Altered mental status Status: Acute Qualifiers: Altered mental status type: delirium Qualified Code(s): R41.0 - Disorientation, unspecified (5) Complete rectal prolapse with displacement of anal sphincter Status: Resolved (6) Chronic pain Status: Acute Qualifiers: Chronic pain type: chronic pain syndrome Qualified Code(s): G89.4 - Chronic pain syndrome (7) Sacroiliitis Status: Acute - Follow up Plan Follow up with: Stephen Munroe MD [Primary Care Provider] - Disposition: [facility] Prognosis: Good Rehab Potential: Good Medical - DS: Qual - VTE Deep Vein Thrombosis/Pulmonary Embolism Present on Admission: No
[2016-07-21] MEDS: SERTRALINE 50 MG TABLET PO SCH (19:48)
[2016-07-21] MEDS: POLYETHYLENE GLYCOL 3350 17 GM PACKET PO SCH (19:50)
[2016-07-21] MEDS: LIDOCAINE PATCH TOPICAL SCH (19:50)
== END 2016-07-21 20:40 | disposition short-term general hospital (02) | DRG 95 ==
LOC: ED 07:28 → ICU 14:40
PROVIDERS: ADMIT Internal Medicine; ATTEND Internal Medicine